=== PATIENT | female | born 1975 | race Caucasian/White ===

== ENCOUNTER 2016-10-07 08:36 | Day surgery (SDC) | payer MEDICARE ==
[~2016-10-07] VITALS: Ht 171.4 cm; Wt 73.0 kg
[2016-10-07] VITALS (8 sets, daily range): BP systolic 101–137; BP diastolic 51–86; PULSE 63–85; RESP 20; TEMP 97.7–98.1; O2SAT 96–98
[~2016-10-07 08:36] MED LIST: FLAG500T PO; HYDR-3129 PO; OMEP20TA39 PO
[2016-10-07] MEDS ORDERED: NEXI20CA PO (08:52)
[2016-10-07] MEDS ORDERED: SODIUM CHLOR 0.9% 1000 ML IV SCH (09:30)
[2016-10-07] MEDS ORDERED: LIDOCAINE 1%/EPINEPHrine 1:100,000 SOLN 20 ML VIAL ONE (12:50)
[2016-10-07] MEDS ORDERED: MIDAZOLAM HCL 5 MG/5 ML VIAL ONE (13:07)
[2016-10-07] MEDS ORDERED: fentaNYL CITRATE 250 MCG/5 ML AMP ONE (13:08)
[2016-10-07] MEDS ORDERED: HYDROmorphone HCL 2 MG TAB PO PRN (15:00)
--- NOTE | 2016-10-08 10:22 | RADRPT ---
EXAM DATE/TIME: 10/07/2016 13:17 [facility] COMPARISON: No previous studies available for comparison. INDICATIONS : Elevated liver function tests. SEDATION TIME: 30 minutes BIOPSY SITE: liver MEDICATION(S): 1.) 3 mg midazolam (Versed) IV 2.) 150 mcg fentanyl (Sublimaze) CLOTHING SUPERVISOR(s): Tuyet Iniguez RN DEVICE(S): 1.) 18 gauge BioPince needle MEDICAL HISTORY : pelvic ulcer disease, crohn's disease SURGICAL HISTORY : None. ENCOUNTER: Initial ACUITY: 1 day PAIN SCORE: 0/10 LOCATION: Right abdomen A total of one core specimen(s) were obtained and sent to the laboratory for pathologic evaluation. PROCEDURE: 1. CT guided liver biopsy. 2. Conscious sedation with continuous EKG and oximetry monitoring. 3. EKG and oximetry remained stable throughout the procedure. Prior to the procedure informed consent was obtained. Any appropriate prior imaging studies were rev iewed. The site was prepped in a sterile fashion. Full sterile technique was used, including cap, mask, deborah rile gloves and gown and a large sterile sheet. Hand hygiene and 2% chlorhexidine and/or betadine/al cohol prep was utilized per protocol for cutaneous antisepsis. The skin and subcutaneous tissues wer e infiltrated with local anesthetic solution. With CT guidance the previously identified target was localized. Biopsy was performed using the presc ribed needle as above. Adequate hemostasis was obtained with compression at the puncture site. Follow-up CT scan reveals no hemorrhage. The patient tolerated the procedure well and there were no complications. The patient was returned to the Radiology Outpatient Unit in stable condition. CONCLUSION: Uncomplicated CT guided biopsy. Elbert Brito MD FACR on October 08, 2016 at 10:20 Board Certified Radiologist. This report was verified electronically.
== END 2016-10-07 17:11 | disposition home or self-care (01) ==
LOC: HRAD 08:36 → HRIP 08:39 → EDSTATUS 09:00 → HRAD 17:11
PROVIDERS: ATTEND Internal Medicine Gastroenterology
DX: K52.9 Noninfective gastroenteritis and colitis, unspecified (principal); K27.9 Peptic ulcer, site unspecified, unspecified as acute or chronic, without hemorrhage or perforation; K50.818 Crohn's disease of both small and large intestine with other complication; R10.13 Epigastric pain; R19.5 Other fecal abnormalities
CPT/HCPCS: 47000; 77012; 88307; 88313; 88331; J2250; J3010; J7030

== ENCOUNTER → 2016-10-11 | Outpatient (CLI) | payer MEDICARE ==
[~2016-10-11] MED LIST changes: +CARA1TAB6 PO; -FLAG500T PO; -HYDR-3129 PO; +NEXI20CA PO; -OMEP20TA39 PO; +PROT40TA PO
--- NOTE | 2016-10-11 13:40 | RADRPT ---
EXAM DATE/TIME: 10/11/2016 12:40 [facility] COMPARISON: No previous studies available for comparison. INDICATIONS : Abdominal pain following liver biopsy four days ago. ORAL CONTRAST: No oral contrast ingested. RADIATION DOSE: 9.96 CTDIvol (mGy) MEDICAL HISTORY : Crohn's disease. Ulcers. SURGICAL HISTORY : Pacemaker. Hysterectomy.Colectomy. ENCOUNTER: Initial ACUITY: 4 - 6 days PAIN SCALE: 4/10 LOCATION: Right upper quadrant TECHNIQUE: Volumetric scanning of the abdomen was performed. Using automated exposure control and adjustment of the mA and/or kV according to patient size, radiation dose was kept as low as reasonably achievable to obtain optimal diagnostic quality images. FINDINGS: No evidence of free air or free fluid. LOWER LUNGS: The visualized lower lungs are clear. LIVER: Homogeneous density without lesion. There is no dilation of the biliary tree. No evidence of hemato ma. No calcified gallstones. SPLEEN: Normal size without lesion. PANCREAS: Within normal limits. KIDNEYS: Normal in size and shape. There is no mass, stone, or hydronephrosis. ADRENAL GLANDS: Within normal limits. AORTA/RETROPERITONEAL: There is no aneurysm or lymphadenopathy. BOWEL/MESENTERY: The stomach and visualized small and large bowel demonstrate no abnormality. MUSCULOSKELETAL: Within normal limits for patient age. CONCLUSION: Normal examination. Ekta Madden MD on October 11, 2016 at 13:37 Board Certified Radiologist. This report was verified electronically.
== END ==
LOC: HRAD 12:19
PROVIDERS: ATTEND Radiology Body Imaging
DX: R10.9 Unspecified abdominal pain (principal); Z98.890 Other specified postprocedural states
CPT/HCPCS: 74150

== ENCOUNTER 2016-12-18 13:37 | Emergency (ER) | payer MEDICARE ==
[~2016-12-18] VITALS: Ht 170.2 cm; Wt 73.8 kg
[~2016-12-18 13:37] MED LIST changes: -CARA1TAB6 PO; -PROT40TA PO
[2016-12-18 13:43] VITALS: BP 102/63; PULSE 100; RESP 16; TEMP 98.1; O2SAT 98
[2016-12-18 13:55] VITALS: BP 105/62; PULSE 105; RESP 18; O2SAT 96
[2016-12-18] MEDS ORDERED: SODIUM CHLOR 0.9% 1000 ML INJ 1,000 ML IV SCH ×2 (14:15)
[2016-12-18] MEDS ORDERED: ONDANSETRON HCL 4 MG/2 ML VIAL IV ONE (14:15)
[2016-12-18] MEDS ORDERED: HYDROmorphone HCL PF 1 MG/ML VIAL IV PUSH ONE ×2 (14:15→15:15)
--- NOTE | 2016-12-18 14:26 | PD ---
HPI Chief Complaint: Abdominal Pain Time Seen by Provider: 13:48 Travel History International Travel<30 days: No Contact w/Intl Traveler<30days: No Traveled to known affect area: No History of Present Illness HPI Is a 41-year-old woman with a history of Crohn's disease, status post multiple surgeries including total colectomy, and at least 3 feet of small bowel resected with ileostomy in 1998, here with epigastric pain, weakness, dehydration, and increased watery output from her ostomy. States feels similar to when she had pancreatitis in the past. She reports having pancreatitis 5 times in the past, most recently in May of last year with abdominal pain and weakness found to have ileitis and mild pancreatitis. She's done well since that time and states she felt completely well until yesterday when the symptoms began to develop. She's had nausea but no vomiting. She has hot flashes from her hysterectomy but hasn't really noticed any change or fevers or chills. No dysuria although she says she is urinating less. History Past Medical History Narrative Medical Crohn's disease with multiple abdominal surgeries including total colectomy, and small bowel resection of at least 3 feet of small bowel, with right lower quadrant ileostomy in , follows with Dr. Harris Influenza Vaccination: No Social History Alcohol Use: No Tobacco Use: Yes Allergies-Medications (Allergen,Severity, Reaction): Coded Allergies: Morphine (Verified Allergy, Severe, Chest pain, 12/18/16) Ciprofloxacin (Verified Allergy, Intermediate, Nausea/Vomiting, 12/18/16) Macrobid (Verified Allergy, Intermediate, Nausea/Vomiting, 12/18/16) Sulfa (Verified Allergy, Intermediate, Nausea/Vomiting, 12/18/16) Adhesives (Verified Allergy, Mild, 12/18/16) Paper Tape Penicillin (Verified Allergy, Mild, Hives, 12/18/16) Reported Meds & Prescriptions Reported Meds & Active Scripts Active Reported Nexium (Esomeprazole DR) 20 Mg Capdr 20 Mg PO BID Review of Systems Except as stated in HPI: all other systems reviewed are Neg Physical Exam Narrative GENERAL: Thin 41 year-old woman, no acute distress. SKIN: Warm and dry. CARDIOVASCULAR: Regular rate and rhythm. No murmur appreciated. RESPIRATORY: No accessory muscle use. Clear to auscultation. Breath sounds equal bilaterally. GASTROINTESTINAL: Abdomen flat and soft. Extensive midline scarring. There is a right lower quadrant ostomy productive of thin yellow liquid. She is minimal epigastric tenderness. No distention. No guarding. MUSCULOSKELETAL: No obvious deformities. No clubbing. No cyanosis. No edema. NEUROLOGICAL: Awake and alert. No obvious cranial nerve deficits. Motor grossly within normal limits. Normal speech. PSYCHIATRIC: Appropriate mood and affect; insight and judgment normal. Data Data Last Documented VS Vital Signs Date Time Temp Pulse Resp B/P Pulse Ox O2 Delivery O2 Flow Rate FiO2 12/18/16 15:09 72 18 102/62 99 Room Air 12/18/16 13:43 98.1 Orders Iv Access Insert/Monitor (12/18/16 14:03) Complete Blood Count With Diff (12/18/16 14:03) Comprehensive Metabolic Panel (12/18/16 14:03) Lipase (12/18/16 14:03) Urinalysis - C+S If Indicated (12/18/16 14:03) Sodium Chlor 0.9% 1000 Ml Inj (Ns 1000 M (12/18/16 14:15) Sodium Chlor 0.9% 1000 Ml Inj (Ns 1000 M (12/18/16 14:15) Ondansetron Inj (Zofran Inj) (12/18/16 14:15) Hydromorphone Pf Inj (Dilaudid Pf Inj) (12/18/16 14:15) Urine Culture (12/18/16 14:15) Hydromorphone Pf Inj (Dilaudid Pf Inj) (12/18/16 15:15) Labs Laboratory Tests Test 12/18/16 12/18/16 14:15 14:20 Urine Collection Type CLEAN CATCH Urine Color YELLOW Urine Turbidity SLIGHT Urine pH 5.5 Urine Specific [place] 1.032 Urine Protein TRACE mg/dL Urine Glucose (UA) NEG mg/dL Urine Ketones NEG mg/dL Urine Occult Blood NEG Urine Nitrite NEG Urine Bilirubin NEG Urine Leukocyte Esterase NEG Urine WBC 3-5 /hpf Urine Squamous Epithelial 0-5 /hpf Cells Urine Bacteria MANY /hpf Microscopic Urinalysis Comment CULTURE INDICATED Urine Collection Time 1415 White Blood Count 7.8 TH/MM3 Red Blood Count 4.39 MIL/MM3 Hemoglobin 12.7 GM/DL Hematocrit 38.6 % Mean Corpuscular Volume 87.9 FL Mean Corpuscular Hemoglobin 29.0 PG Mean Corpuscular Hemoglobin 33.0 % Concent Red Cell Distribution Width 14.0 % Platelet Count 336 TH/MM3 Mean Platelet Volume 8.4 FL Neutrophils (%) (Auto) 65.8 % Lymphocytes (%) (Auto) 28.2 % Monocytes (%) (Auto) 3.7 % Eosinophils (%) (Auto) 1.7 % Basophils (%) (Auto) 0.6 % Neutrophils # (Auto) 5.2 TH/MM3 Lymphocytes # (Auto) 2.2 TH/MM3 Monocytes # (Auto) 0.3 TH/MM3 Eosinophils # (Auto) 0.1 TH/MM3 Basophils # (Auto) 0.0 TH/MM3 CBC Comment DIFF FINAL Differential Comment Sodium Level 143 MEQ/L Potassium Level 3.8 MEQ/L Chloride Level 110 MEQ/L Carbon Dioxide Level 25.6 MEQ/L Anion Gap 7 MEQ/L Blood Urea Nitrogen 20 MG/DL Creatinine 0.92 MG/DL Estimat Glomerular Filtration 68 ML/MIN Rate Random Glucose 131 MG/DL Calcium Level 9.0 MG/DL Total Bilirubin 0.3 MG/DL Aspartate Amino Transf 19 U/L (AST/SGOT) Alanine Aminotransferase 26 U/L (ALT/SGPT) Alkaline Phosphatase 115 U/L Total Protein 7.6 GM/DL Albumin 3.9 GM/DL Lipase 252 U/L MDM Medical Decision Making Medical Screen Exam Complete: Yes Emergency Medical Condition: Yes Interpretation(s) LABS: CBC unremarkable CMP with mildly elevated BUN consistent with dehydration UA unremarkable Differential Diagnosis Enteritis, pancreatitis, Crohn's flare, dehydration, high output ostomy, other Narrative Course Medical decision making INITIAL: Is a 41-year-old woman presents to the emergency department with epigastric abdominal pain, tenderness, and increased liquid output from her ostomy. Suspect enteritis or Crohn's flare. We'll check labs, IV fluid hydration, antiemetics, reassess. FINAL: 41 year-old woman with abdominal pain and increased liquid output from her ostomy consistent with enteritis or Crohn's flare. She looks well. She still feels very dehydrated she's having a lot of pain despite IV medications and 2 L of fluid in the ED. I spoke her GI doctor and initially was given a plan for outpatient follow-up. She really isn't feeling much better in the ED and so we'll plan for observation overnight, IV fluids, pain medicine, antibiotics. Diagnosis Primary Impression: Abdominal pain Admitting Information Admitting Physician Requests: Observation Danish Butler MD Dec 18, 2016 14:26
[2016-12-18 14:42] LABS: BLOOD, URINE NEG (NEG); GLUCOSE,URINE NEG (NEG); KETONE, URINE NEG (NEG); NITRITE,URINE NEG (NEG); PH, URINE 5.5 (5.0-8.5)
[2016-12-18 14:45] LABS: AUTOMATED NEUTROPHIL # 5.2 TH/MM3 (1.8-7.7); BASOPHIL % 0.6 % (0.0-2.0); EOSINOPHIL # 0.1 TH/MM3 (0-0.4); EOSINOPHIL % 1.7 % (0.0-4.0); HEMATOCRIT 38.6 % (35.0-46.0); HEMO FLAGS DIFF FINAL; LYMPH % 28.2 % (9.0-44.0); LYMPHOCYTE # 2.2 TH/MM3 (1.0-4.8); MEAN CELL VOLUME 87.9 FL (80.0-100.0); MONO % 3.7 % (0.0-8.0); NEUT % 65.8 % (16.0-70.0); PLATELET COUNT 336 TH/MM3 (150-450); RED BLOOD COUNT 4.39 MIL/MM3 (4.00-5.30); WHITE BLOOD COUNT 7.8 TH/MM3 (4.0-11.0)
[2016-12-18 14:46] LABS: METHOD OF COLLECTION CLEAN CATCH; URINE COLOR YELLOW (YELLW/STRAW)
[2016-12-18 14:47] LABS: BACTERIA, URINE MANY /hpf; COMMENT (UR) CULTURE INDICATED; CULTURE IF INDICATED CULTURE INDICATED; SQUAMOUS EPITHELIAL CELL URINE 0-5 /hpf (0-5)
[2016-12-18 14:57] LABS: CHLORIDE 110 MEQ/L (98-107); POTASSIUM 3.8 MEQ/L (3.5-5.1); SODIUM (NA) 143 MEQ/L (136-145)
[2016-12-18 15:01] LABS: ANION GAP 7 MEQ/L (5-15); BICARBONATE 25.6 MEQ/L (21.0-32.0); BLOOD UREA NITROGEN 20 MG/DL (7-18)
[2016-12-18 15:04] LABS: ALT (GPT) 26 U/L (10-53); AST (GOT) 19 U/L (15-37); GLOMERULAR FILTRATION RATE 68 ML/MIN (>89)
[2016-12-18 15:06] LABS: TOTAL BILIRUBIN ADULT 0.3 MG/DL (0.2-1.0)
[2016-12-18 15:07] LABS: ALKALINE PHOSPHATASE 115 U/L (45-117)
[2016-12-18 15:09] VITALS: BP 102/62; PULSE 72; RESP 18; O2SAT 99
[2016-12-18 15:30] VITALS: BP 85/52; PULSE 64; RESP 18; O2SAT 95
[2016-12-18 15:45] VITALS: BP 97/65; PULSE 72; RESP 18; O2SAT 99
--- NOTE | 2016-12-18 17:33 | HHI.HP ---
[facility] Service [facility] Primary Care Physician Tae Harris MD Admission Diagnosis intractable abdominal pain, nausea vomiting Diagnoses: Chief Complaint: Epigastric pain, weakness and dehydration Travel History International Travel<30 Days: No Contact w/Intl Traveler <30 Da: No Traveled to Known Affected Are: No History of Present Illness 41 years old woman with history of Crohn's disease status post multiple surgery and total colectomy 3 feet of small bowel resected with ileostomy in 1998. Came complaining of epigastric pain weakness and"dehydration"patient has watery stool in the ostomy which she is chronic. She denied a history of pancreatitis in the past however her liver function test bilirubin and alkaline phosphatase is within normal limits today. She she was found to have BUN of 20 she was given 2 L of iv fluid in ED, I discussed with Dr. Danish alva, he recommended admission for observation. When I went to see the patient she looked already improved with hydration, I discussed with her and she agreed on discharge and follow up with Dr. White in his office Review of Systems All 10 systems reviewed and was positive for what is mentioned in history of present illness otherwise negative Past Family Social History Past Medical History Crohn's disease with multiple abdominal surgeries including total colectomy, and small bowel resection of at least 3 feet of small bowel, with right lower quadrant ileostomy in ', follows with Dr. Harris Past Surgical History As above Allergies: Coded Allergies: Morphine (Verified Allergy, Severe, Chest pain, 12/18/16) Ciprofloxacin (Verified Allergy, Intermediate, Nausea/Vomiting, 12/18/16) Macrobid (Verified Allergy, Intermediate, Nausea/Vomiting, 12/18/16) Sulfa (Verified Allergy, Intermediate, Nausea/Vomiting, 12/18/16) Adhesives (Verified Allergy, Mild, 12/18/16) Paper Tape Penicillin (Verified Allergy, Mild, Hives, 12/18/16) Family History Reviewed noncontributory Social History Denied tobacco alcohol or illicit drug abuse Physical Exam Vital Signs Vital Signs Date Time Temp Pulse Resp B/P Pulse Ox O2 Delivery O2 Flow Rate FiO2 12/18/16 15:45 72 18 97/65 99 Room Air 12/18/16 15:30 64 18 85/52 95 Room Air 12/18/16 15:09 72 18 102/62 99 Room Air 12/18/16 13:55 105 18 105/62 96 Room Air 12/18/16 13:43 98.1 100 16 102/63 98 Physical Exam GENERAL: This is a well-nourished, well-developed patient, in no apparent distress. SKIN: No rashes, warm and dry HEAD: Atraumatic. Normocephalic. EYES: Pupils equal round and reactive. Extraocular motions intact. No scleral icterus. ENT: Nose without bleeding, or drainage, Airway patent. NECK: Trachea midline. Supple CARDIOVASCULAR: Regular rate and rhythm without murmurs, gallops, or rubs. RESPIRATORY: Fair air entry bilaterally. No wheezes, rales, or rhonchi. GASTROINTESTINAL: Abdomen soft, non-tender, nondistended. Positive bowel sounds , colostomy in place function MUSCULOSKELETAL: Extremities without clubbing, cyanosis, or edema. Pedal pulses appreciated NEUROLOGICAL: Awake and alert. Moves all extremity. Normal speech.no focal neurological deficit Laboratory Laboratory Tests Test 12/18/16 12/18/16 14:15 14:20 Urine Collection Type CLEAN CATCH Urine Color YELLOW Urine Turbidity SLIGHT Urine pH 5.5 Urine Specific [place] 1.032 Urine Protein TRACE Urine Glucose (UA) NEG Urine Ketones NEG Urine Occult Blood NEG Urine Nitrite NEG Urine Bilirubin NEG Urine Leukocyte Esterase NEG Urine WBC 3-5 Urine Squamous Epithelial 0-5 Cells Urine Bacteria MANY Microscopic Urinalysis Comment CULTURE INDICATED Urine Collection Time 1415 White Blood Count 7.8 Red Blood Count 4.39 Hemoglobin 12.7 Hematocrit 38.6 Mean Corpuscular Volume 87.9 Mean Corpuscular Hemoglobin 29.0 Mean Corpuscular Hemoglobin 33.0 Concent Red Cell Distribution Width 14.0 Platelet Count 336 Mean Platelet Volume 8.4 Neutrophils (%) (Auto) 65.8 Lymphocytes (%) (Auto) 28.2 Monocytes (%) (Auto) 3.7 Eosinophils (%) (Auto) 1.7 Basophils (%) (Auto) 0.6 Neutrophils # (Auto) 5.2 Lymphocytes # (Auto) 2.2 Monocytes # (Auto) 0.3 Eosinophils # (Auto) 0.1 Basophils # (Auto) 0.0 CBC Comment DIFF FINAL Differential Comment Sodium Level 143 Potassium Level 3.8 Chloride Level 110 Carbon Dioxide Level 25.6 Anion Gap 7 Blood Urea Nitrogen 20 Creatinine 0.92 Estimat Glomerular Filtration 68 Rate Random Glucose 131 Calcium Level 9.0 Total Bilirubin 0.3 Aspartate Amino Transf 19 (AST/SGOT) Alanine Aminotransferase 26 (ALT/SGPT) Alkaline Phosphatase 115 Total Protein 7.6 Albumin 3.9 Lipase 252 Date/Time Procedure Status Source Growth 12/18/16 14:15 Urine Culture Received Urine Clean Catch Pending Result Diagram: 12/18/16 1420 12/18/16 1420 Assessment and Plan Assessment and Plan 41 years old female with history of Crohn's disease status post colectomy and 3 feet small bowel resection came with weakness epigastric pain and mild azotemia with BUN of 20, GI Dr. White, has been consulted from ED recommended following up as an out patient, the patient stated she hasn't been on any sulfasalazine or other medication for Crohn's and she was okay, she stated her symptoms basically chronic, she was given 2 L of fluid in ED she already improved, I think she will be stable to go home and follow up with her GI considering her liver function test bilirubin and alkaline phosphatase potassium all within normal limits Discussed Condition With Patient in ED physician Nasir Jimenez MD Dec 18, 2016 17:32
[2016-12-18 18:12] VITALS: BP 97/52; PULSE 63; RESP 18; O2SAT 99
== END 2016-12-18 18:44 | disposition home or self-care (01) ==
LOC: PHED 13:37 → PHEDA 15:53 → UNDOADMIN 15:53 → UNDODISIN 18:44 → PHED 18:44
DX: R10.13 Epigastric pain (principal); R53.1 Weakness; E86.0 Dehydration; K50.90 Crohn's disease, unspecified, without complications; Z72.0 Tobacco use
CPT/HCPCS: 80053; 81001; 83690; 85025; 87086; 96361; 96374; 96375; 96376; 99284; J1170; J2405; J7030

== ENCOUNTER 2016-12-18 21:29 | Emergency (ER) | payer MEDICARE ==
[~2016-12-18] VITALS: Ht 170.2 cm; Wt 76.1 kg
[2016-12-18 22:11] VITALS: BP 111/68; PULSE 68; RESP 18; TEMP 98.5; O2SAT 99
== END 2016-12-19 00:24 | disposition left against medical advice (07) ==
LOC: PHED 21:29
DX: R10.9 Unspecified abdominal pain (principal)
CPT/HCPCS: 99281

== ENCOUNTER 2017-02-06 00:07 | Observation (INO) | payer MEDICARE ==
[~2017-02-06] VITALS: Ht 170.2 cm; Wt 78.8 kg
[2017-02-06] VITALS (11 sets, daily range): BP systolic 94–125; BP diastolic 59–81; PULSE 19–107; RESP 18–20; TEMP 96–98; O2SAT 94–98
--- NOTE | 2017-02-06 01:37 | PD ---
HPI Chief Complaint: GI Complaint Time Seen by Provider: 01:33 Travel History International Travel<30 days: No Contact w/Intl Traveler<30days: No Traveled to known affect area: No History of Present Illness HPI The patient is a 41-year-old female that has a history of Crohn's disease and ulcers who noted black stools since about 5 PM tonight. She also has midline epigastric pain. Sometimes the pain goes back to the right back. She does have a history of ulcer disease as well. She is followed by Dr. Harris for this. She denies any alcohol, aspirin or nonsteroidal anti-inflammatory medications. She does have nausea without vomiting. She denies any fever. She denies any syncopal or near syncopal spells. The patient has missed 2 days (4 doses) of her 20 mg Nexium tablets. She simply did not buy them at the store. She states she has a large bladder and, because her bladder does not empty completely, it is difficult to treat urinary tract infections because there is always some retained urine in the bladder. She does not want urinary antibiotics. PFSH Past Medical History Hx Anticoagulant Therapy: No Blood Disorders: No Cancer: No Cardiovascular Problems: No High Cholesterol: No Diabetes: No Diminished Hearing: No Endocrine: No Gastrointestinal Disorders: Yes (CROHN'S DISEASE) Genitourinary: No Hiatal Hernia: Yes (GASTRIC ULCER) Immune Disorder: No Musculoskeletal: No Neurologic: No Psychiatric: No Reproductive: Yes (full hysterectomy) Respiratory: No Immunizations Current: No Pancreatitis: Yes Thyroid Disease: No Tetanus Vaccination: > 5 Years Influenza Vaccination: No ?: Not : 0 Past Surgical History Abdominal Surgery: Yes (COLECTOMY, ONLY 3 FT SMALL INTESTINE REMAINING) AICD: No Eye Surgery: No Hysterectomy: Yes Joint Replacement: No Oral Surgery: No Pacemaker: Yes Other Surgery: Yes (31) Social History Alcohol Use: No (1X week) Tobacco Use: Yes (09/30 PPD) Substance Use: No Allergies-Medications (Allergen,Severity, Reaction): Coded Allergies: Flagyl (Verified Allergy, Severe, Vomiting, 02/06/17) Morphine (Verified Allergy, Severe, Chest pain, 02/06/17) Ciprofloxacin (Verified Allergy, Intermediate, Nausea/Vomiting, 02/06/17) Macrobid (Verified Allergy, Intermediate, Nausea/Vomiting, 02/06/17) Sulfa (Verified Allergy, Intermediate, Nausea/Vomiting, 02/06/17) Adhesives (Verified Allergy, Mild, 02/06/17) Paper Tape Penicillin (Verified Allergy, Mild, Hives, 02/06/17) Reported Meds & Prescriptions Reported Meds & Active Scripts Active Reported Nexium (Esomeprazole DR) 20 Mg Capdr 20 Mg PO BID Review of Systems Except as stated in HPI: all other systems reviewed are Neg Physical Exam Narrative GENERAL: The patient is alert, oriented 3 and slight apparent distress with her midline epigastric pain. Her vital signs show heart rate of 107 but are otherwise normal. SKIN: Focused skin assessment warm/dry. HEAD: Atraumatic. Normocephalic. EYES: Pupils equal and round. No scleral icterus. No injection or drainage. ENT: No nasal bleeding or discharge. Mucous membranes pink and moist. NECK: Trachea midline. No JVD. CARDIOVASCULAR: Regular rate and rhythm. No murmur appreciated. RESPIRATORY: No accessory muscle use. Clear to auscultation. Breath sounds equal bilaterally. GASTROINTESTINAL: Abdomen soft, with tenderness to direct palpation in the midline epigastrium, nondistended. Hepatic and splenic margins not palpable. No guarding or rebound is present. MUSCULOSKELETAL: No obvious deformities. No clubbing. No cyanosis. No edema. NEUROLOGICAL: Awake and alert. No obvious cranial nerve deficits. Motor grossly within normal limits. Normal speech. PSYCHIATRIC: Appropriate mood and affect; insight and judgment normal. Data Data Last Documented VS Vital Signs Date Time Temp Pulse Resp B/P Pulse Ox O2 Delivery O2 Flow Rate FiO2 02/06/17 02:20 87 18 112/81 98 Room Air 02/06/17 00:11 97.9 Orders Complete Blood Count With Diff (02/06/17 01:39) Comprehensive Metabolic Panel (02/06/17 01:39) Prothrombin Time / Inr (Pt) (02/06/17 01:39) Act Partial Throm Time (Ptt) (02/06/17 01:39) Urinalysis - C+S If Indicated (02/06/17 01:39) Iv Access Insert/Monitor (02/06/17 01:39) Ecg Monitoring (02/06/17 01:39) Oximetry (02/06/17 01:39) Sodium Chlor 0.9% 1000 Ml Inj (Ns 1000 M (02/06/17 01:39) Sodium Chloride 0.9% Flush (Ns Flush) (02/06/17 01:45) Ondansetron Inj (Zofran Inj) (02/06/17 01:45) Pantoprazole Inj (Protonix Inj) (02/06/17 01:45) Famotidine Inj (Pepcid Inj) (02/06/17 01:45) Urine Culture (02/06/17 01:20) Labs Laboratory Tests Test 02/06/17 01:20 White Blood Count 17.2 TH/MM3 Red Blood Count 4.15 MIL/MM3 Hemoglobin 12.0 GM/DL Hematocrit 35.6 % Mean Corpuscular Volume 86.0 FL Mean Corpuscular Hemoglobin 28.9 PG Mean Corpuscular Hemoglobin 33.7 % Concent Red Cell Distribution Width 14.4 % Platelet Count 324 TH/MM3 Mean Platelet Volume 8.5 FL Neutrophils (%) (Auto) 73.3 % Lymphocytes (%) (Auto) 18.6 % Monocytes (%) (Auto) 5.5 % Eosinophils (%) (Auto) 1.0 % Basophils (%) (Auto) 1.6 % Neutrophils # (Auto) 12.6 TH/MM3 Lymphocytes # (Auto) 3.2 TH/MM3 Monocytes # (Auto) 0.9 TH/MM3 Eosinophils # (Auto) 0.2 TH/MM3 Basophils # (Auto) 0.3 TH/MM3 CBC Comment AUTO DIFF Differential Comment AUTO DIFF CONFIRMED Platelet Estimate NORMAL Platelet Morphology Comment NORMAL Red Cell Morphology Comment NORMAL Prothrombin Time 10.1 SEC Prothromb Time International 0.9 RATIO Ratio Activated Partial 23.9 SEC Thromboplast Time Urine Color YELLOW Urine Turbidity SLIGHT Urine pH 5.0 Urine Specific [place] GREATER THAN 1.035 Urine Protein 30 mg/dL Urine Glucose (UA) NEG mg/dL Urine Ketones TRACE mg/dL Urine Occult Blood NEG Urine Nitrite NEG Urine Bilirubin NEG Urine Leukocyte Esterase NEG Urine RBC 0-2 /hpf Urine WBC 0-2 /hpf Urine Squamous Epithelial 0-5 /hpf Cells Urine Bacteria MANY /hpf Microscopic Urinalysis Comment CULTURE INDICATED Sodium Level 141 MEQ/L Potassium Level 3.6 MEQ/L Chloride Level 105 MEQ/L Carbon Dioxide Level 26.9 MEQ/L Anion Gap 9 MEQ/L Blood Urea Nitrogen 23 MG/DL Creatinine 1.30 MG/DL Estimat Glomerular Filtration 45 ML/MIN Rate Random Glucose 95 MG/DL Calcium Level 9.2 MG/DL Total Bilirubin 0.1 MG/DL Aspartate Amino Transf 36 U/L (AST/SGOT) Alanine Aminotransferase 40 U/L (ALT/SGPT) Alkaline Phosphatase 129 U/L Total Protein 7.7 GM/DL Albumin 3.7 GM/DL [facility] Medical Decision Making Medical Screen Exam Complete: Yes Emergency Medical Condition: Yes Medical Record Reviewed: Yes Interpretation(s) The white count is 17,200. There are 73% neutrophils but the rest of the CBC is normal. The complete metabolic profile shows a creatinine of 1.3, BUN of 23 and alkaline phosphatase of 129 but is otherwise normal. Urinalysis shows many bacteria and culture is indicated and 30 urine protein and specific gravity greater than 1.035. Differential Diagnosis Bleeding ulcers, GERD, anemia, electrolyte disorder, coagulopathy, noncompliance to medication, dehydration Narrative Course The patient likely has bleeding ulcers. It is now 0249 and the patient still is putting out black stool into her ileostomy bag. The patient may be dehydrated, she has a urine specific gravity of greater than 1.035. She likely does have a urinary infection even though the white cells in the urine are only 0-2. The patient does not feel comfortable going home with black stool coming into her ileostomy bag. The hemoglobin of 12.0 is the lowest hemoglobin we have had on her since May 2016 when we began collecting records on her. Physician Communication Physician Communication I discussed the patient with Dr. Malhotra, the patient will be 23 hour observation to her. Diagnosis Primary Impression: Upper GI bleed Additional Impressions: History of Crohn's disease Moderate dehydration Hx of ulcer disease Admitting Information Admitting Physician Requests: Observation Amando Nolasco MD February 06, 2017 01:37
[2017-02-06] MEDS ORDERED: SODIUM CHLOR 0.9% 1000 ML INJ 1,000 ML IV SCH ×2 (01:39→03:15)
[2017-02-06] MEDS ORDERED: SODIUM CHLORIDE 0.9% FLUSH 10 ML FLUSH IV FLUSH PRN ×2 (01:45→03:00)
[2017-02-06] MEDS ORDERED: ONDANSETRON HCL 4 MG/2 ML VIAL IVP ONE (01:45)
[2017-02-06] MEDS ORDERED: PANTOPRAZOLE SODIUM 40 MG VIAL IVP ONE (01:45)
[2017-02-06] MEDS ORDERED: FAMOTIDINE 20 MG/2 ML VIAL IV PUSH ONE (01:45)
[2017-02-06 01:53] LABS: AUTOMATED NEUTROPHIL # 12.6 TH/MM3 (1.8-7.7); BASOPHIL # 0.3 TH/MM3 (0-0.2); BASOPHIL % 1.6 % (0.0-2.0); EOSINOPHIL # 0.2 TH/MM3 (0-0.4); HEMATOCRIT 35.6 % (35.0-46.0); LYMPH % 18.6 % (9.0-44.0); LYMPHOCYTE # 3.2 TH/MM3 (1.0-4.8); MEAN CORPUSCULAR HEMOGLOBIN 28.9 PG (27.0-34.0); MEAN CORPUSCULAR HGB CONC 33.7 % (32.0-36.0); MONO % 5.5 % (0.0-8.0); NEUT % 73.3 % (16.0-70.0); PLATELET COUNT 324 TH/MM3 (150-450); RED BLOOD COUNT 4.15 MIL/MM3 (4.00-5.30); RED CELL DISTRIBUTION WIDTH 14.4 % (11.6-17.2); WHITE BLOOD COUNT 17.2 TH/MM3 (4.0-11.0)
[2017-02-06 01:54] LABS: BLOOD, URINE NEG (NEG); GLUCOSE,URINE NEG (NEG); KETONE, URINE TRACE mg/dL (NEG); NITRITE,URINE NEG (NEG)
[2017-02-06 01:58] LABS: HEMO FLAGS AUTO DIFF
[2017-02-06 01:59] LABS: CHLORIDE 105 MEQ/L (98-107); POTASSIUM 3.6 MEQ/L (3.5-5.1); SODIUM (NA) 141 MEQ/L (136-145)
[2017-02-06 02:03] LABS: ANION GAP 9 MEQ/L (5-15); BACTERIA, URINE MANY /hpf; BICARBONATE 26.9 MEQ/L (21.0-32.0); BLOOD UREA NITROGEN 23 MG/DL (7-18); COMMENT (UR) CULTURE INDICATED; CULTURE IF INDICATED CULTURE INDICATED; RBC, URINE 0-2 /hpf (0-3); SQUAMOUS EPITHELIAL CELL URINE 0-5 /hpf (0-5); URINE COLOR YELLOW (YELLW/STRAW); WBC, URINE 0-2 /hpf (0-5)
[2017-02-06 02:05] LABS: APTT (PATIENT) 23.9 SEC (24.3-30.1); INTERNATIONAL NORMALIZED RATIO 0.9 RATIO; PROTHROMBIN TIME - PATIENT 10.1 SEC (9.8-11.6)
[2017-02-06 02:06] LABS: ALT (GPT) 40 U/L (10-53); AST (GOT) 36 U/L (15-37); GLOMERULAR FILTRATION RATE 45 ML/MIN (>89)
[2017-02-06 02:07] LABS: TOTAL BILIRUBIN ADULT 0.1 MG/DL (0.2-1.0)
[2017-02-06 02:09] LABS: ALKALINE PHOSPHATASE 129 U/L (45-117)
[2017-02-06 02:11] LABS: PLATELET ESTIMATE SMEAR NORMAL (NORMAL); PLATELET MORPHOLOGY NORMAL (NORMAL); SCAN/DIFF AUTO DIFF CONFIRMED
[2017-02-06] MEDS ORDERED: NALOXONE HCL 0.4 MG/ML AMP IV PRN (03:00)
[2017-02-06] MEDS ORDERED: ONDANSETRON HCL 4 MG/2 ML VIAL IV ONE (03:15)
[2017-02-06] MEDS ORDERED: HYDROmorphone HCL PF 1 MG/ML VIAL IVP ONE (03:15)
[2017-02-06 03:22] LABS: HEMATOCRIT 33.6 % (35.0-46.0); REVIEW FLAG FINAL
[2017-02-06] MEDS: SODIUM CHLOR 0.9% 1000 ML INJ 1,000 ML IV SCH ×3 (03:48→21:38)
[2017-02-06] MEDS: HYDROmorphone HCL PF 1 MG/ML VIAL IV PUSH PRN ×5 (05:53→23:02)
[2017-02-06 07:47] LABS: HEMATOCRIT 32.2 % (35.0-46.0)
[2017-02-06 07:53] LABS: REVIEW FLAG FINAL
--- NOTE | 2017-02-06 08:17 | PD.CONS ---
GI Consult GI Consult See formal GI consult dictated today also ASSESSMENT/PLAN: 1. Melena/epigastic pain-hx of PUD 2. Anemia 3. Crohn's 4. PBC/abnormal LFT PLAN: 1. EGD today 2. Cont PPI 3.Avoid ASA/NSAIDS It was a pleasure seeing Zulma Shah Thank you for this consult. Entered by: Khurram Trujillo (Khurram Trujillo MD) Khurram Trujillo MD February 06, 2017 08:17 Nasir Jimenez MD February 06, 2017 11:04
--- NOTE | 2017-02-06 09:43 | HHI.GIFU ---
GI Follow-up Note Consult Follow-up EGD AND BIOPSY ([id number]) 1. Esoph: normal 2. Stomach: bile in stomach-suctioned. 1.0 cm non-bleeding linear ulcer in mid-body-bx 5mm prepyloric ulcer-bx (non-bleeding) 5 mm pyloric channel ulcer-bx (non-bleeding) antral scarring 3. Duodenum: bulb duodenitis PLAN: 1. Cont PPI 2. Add carafate 3. Avoid NSAIDS/ASA 4. Stop smoking 5. advance diet It was a pleasure seeing Zulma Shah Thank you for this consult. Entered by: Khurram Yanes MD February 06, 2017 09:43
[2017-02-06] MEDS ORDERED: FLUMAZENIL 0.5 MG/5 ML VIAL IV PRN ×2 (09:45)
[2017-02-06] MEDS ORDERED: LACTATED RINGER'S 1000 ML INJ 1,000 ML ONE (10:00)
--- NOTE | 2017-02-06 10:19 | MB ---
cc: LYLE LACY MD, LOUIS M. MD PASRICHA, SUNIL P. M.D. DATE OF CONSULTATION: 02/06/2017 DATE OF : 1975 REASON FOR CONSULTATION I was asked to see the patient at the request of Dr. Lacy for evaluation of melena. HISTORY OF PRESENT ILLNESS The patient is a pleasant 41-year-old white female with history of Crohn's and had her colon taken out and part of her small intestine. She has an ileostomy. She also has epigastric pain and in June 2016 she had upper endoscopy which revealed multiple gastric ulcers and a duodenal ulcer. Biopsies were benign. She also had ileoscopy through the stoma and this was unremarkable also. She was advised not to take aspirin or NSAIDs and continue taking a PPI. She has had difficulty staying on the PPI due to expense and she actually stopped her Nexium 20 mg 2 or 3 days ago. Three weeks ago she states was her last Excedrin dosage. She started to have increasing sharp epigastric pain and some nausea but no vomiting. She then developed black stools through the ileostomy in her bag. She came to the emergency room. Hemoglobin did drop but is now stabilized in the 10 range - see below. At this time she feels pretty good as far as nausea is concerned. There has been no dysphagia or heartburn. No hematochezia. No fever or chills. PAST MEDICAL HISTORY 1. Crohn's disease - it was quite extensive, she had a total colectomy, she had part of her small bowel removed. She says she also had her rectum removed. 2. She has had gastric ulcer and duodenal ulcer. 3. 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 PAST SURGICAL HISTORY 1. Colectomy. 2. Partial small bowel removed - she has ileostomy now. 3. Hysterectomy. SOCIAL HISTORY She does drink socially. She does smoke 1-2 packs of cigarettes per day. ALLERGIES FLAGYL, MORPHINE, CIPRO, MACROBID, SULFA, ADHESIVE TAPE, PENICILLIN. MEDICATIONS 1. Nexium 20 mg b.i.d. 2. She did admit to some Excedrin usage but that was a few weeks ago. She takes no IBD medications. She is supposed to be taking ursodiol but she is not taking it right now. REVIEW OF SYSTEMS CONSTITUTIONAL: No weight loss, fever, chills. CARDIOPULMONARY: No chest pain, palpitation, wheezes or shortness of breath. GASTROINTESTINAL: Please see above. Otherwise unremarkable ten-point review of systems. FAMILY HISTORY Noncontributory for this admission. PHYSICAL EXAMINATION VITAL SIGNS: Blood pressure is 106/70, pulse of 63, respiratory rate 20, temperature 97.6. GENERAL: She is a well-developed, well-nourished white female resting comfortably at this time. No acute GI distress. HEENT: Pupils equal, round, reactive to light. No obvious scleral icterus. Oropharyngeal - clear. Has dental caries. No tongue deviation or candidal lesions. Hearing was intact. NECK: Supple without lymphadenopathy. LUNGS: Clear to auscultation and percussion. HEART: Regular rhythm. No gross murmurs are heard. ABDOMEN: Soft. There is epigastric tenderness but no rebound tenderness, organomegaly or masses. No Pinedo's sign. Her ileostomy is in the right lower quadrant and does have the brown to blackish stool, but no red stool. EXTREMITIES: No cyanosis, clubbing or edema. Cranial nerves are grossly intact. I did not assess her gait. LABORATORY DATA Laboratories reveal a BUN of 23, is elevated, creatinine 1.30 is elevated, total bilirubin is 0.1, SGOT of 36, SGPT of 40 - all normal. Alk phos elevated at 129. Total protein 7.7, albumin 3.7 - both normal. Potassium 3.6, sodium 141. Prothrombin time 10.1, INR 0.9, PTT 23.9. Hemoglobin 12.1, hematocrit 35.6, platelet count 324,000. Hemoglobin this morning at 03:00 a.m. was 10.9 and this morning at 7:15, hemoglobin is 10.8 with hematocrit 32.2. IMPRESSION 1. Melena - she has melena in the ileostomy. She does admit to taking some Excedrin a few weeks ago and she has stopped her Nexium temporarily. There is history of gastric and duodenal ulcers. I suspect she has recurrent ulcers. The epigastric pain is suggestive of this also. 2. Anemia - more likely blood loss anemia. 3. Crohn's disease - she had extensive surgery in this regard. No evidence of Crohn's on her previous ileoscopy and upper endoscopy. 4. History of PBC and abnormal LFTs - she is supposed to be taking ursodiol. She will get back on this. RECOMMENDATIONS 1. Upper endoscopy this morning. All indications, risks, complications and benefit, alternatives were discussed with her including risk of bleeding, perforation, infection, small possibility of , she is agreeable. 2. Continue PPI. 3. Avoid aspirin and NSAIDs. 4. Further recommendations after the upper endoscopy is done. Khurram Trujillo MD SP/TERENCE /8:21 AM /9:23 AM [facility]
[2017-02-06] MEDS: PANTOPRAZOLE SODIUM 40 MG VIAL IV PUSH SCH ×2 (10:30→20:40)
[2017-02-06 10:34] LABS: AUTOMATED NEUTROPHIL # 5.2 TH/MM3 (1.8-7.7); BASOPHIL % 0.6 % (0.0-2.0); EOSINOPHIL # 0.2 TH/MM3 (0-0.4); EOSINOPHIL % 2.2 % (0.0-4.0); HEMATOCRIT 31.8 % (35.0-46.0); HEMO FLAGS DIFF FINAL; LYMPH % 29.6 % (9.0-44.0); LYMPHOCYTE # 2.4 TH/MM3 (1.0-4.8); MEAN CELL VOLUME 87.9 FL (80.0-100.0); MEAN CORPUSCULAR HEMOGLOBIN 29.2 PG (27.0-34.0); MEAN CORPUSCULAR HGB CONC 33.2 % (32.0-36.0); MONO % 4.6 % (0.0-8.0); PLATELET COUNT 242 TH/MM3 (150-450); RED BLOOD COUNT 3.62 MIL/MM3 (4.00-5.30); RED CELL DISTRIBUTION WIDTH 14.6 % (11.6-17.2); WHITE BLOOD COUNT 8.3 TH/MM3 (4.0-11.0)
[2017-02-06] MEDS: SODIUM CHLORIDE 0.9% FLUSH 10 ML FLUSH IV FLUSH SCH ×3 (10:37→23:02)
[2017-02-06] MEDS: SUCRALFATE 1 GM TAB PO SCH ×3 (10:48→20:40)
--- NOTE | 2017-02-06 11:16 | HHI.HP ---
[facility] Service [place] [facility] Primary Care Physician No Primary Care Physician Admission Diagnosis upper GI bleed Diagnoses: Chief Complaint: Black tarry stool and abdominal pain Travel History International Travel<30 Days: No Contact w/Intl Traveler <30 Da: No Traveled to Known Affected Are: No History of Present Illness 41 years old female with history of Crohn's disease status post colectomy and small bowel resection and ileostomy. Patient came to the ED complaining of severe epigastric pain around 6 out of 10 constant no radiation, no nausea or vomiting, positive black tarry stool. No fever or chills, patient had an EGD in June 2016 which showed multiple gastric ulcer and duodenal ulcer biopsies were taken and it was benign, she also had ileoscopy through the stoma which was unremarkable. Patient taking Nexium. Patient just came from EGD which seems to be showed an ulcer as per the patient. Currently she is doing well pain is subsided. Review of Systems All systems reviewed and was positive for what is mentioned in history of present illness otherwise negative Past Family Social History Past Medical History Crohn's disease status post total colectomy and partial small bowel resection and rectum resection History of gastric ulcer and duodenal ulcer Increased LFT and alkaline phosphatase with variant of a simple PBC Patient has history of hysterectomy Past Surgical History As above Allergies: Coded Allergies: Flagyl (Verified Allergy, Severe, Vomiting, 02/06/17) Morphine (Verified Allergy, Severe, Chest pain, 02/06/17) Ciprofloxacin (Verified Allergy, Intermediate, Nausea/Vomiting, 02/06/17) Macrobid (Verified Allergy, Intermediate, Nausea/Vomiting, 02/06/17) Sulfa (Verified Allergy, Intermediate, Nausea/Vomiting, 02/06/17) Adhesives (Verified Allergy, Mild, 02/06/17) Paper Tape Penicillin (Verified Allergy, Mild, Hives, 02/06/17) Family History Smoke pack per day for over 20 years, occasional alcohol or illicit drug abuse Physical Exam Vital Signs Vital Signs Date Time Temp Pulse Resp B/P Pulse Ox O2 Delivery O2 Flow Rate FiO2 02/06/17 08:30 97.9 60 16 108/65 99 02/06/17 08:00 96.0 66 20 108/78 94 02/06/17 06:39 18 02/06/17 04:05 97.6 19 20 106/70 96 02/06/17 03:52 63 18 102/66 98 Room Air 02/06/17 03:42 18 02/06/17 03:15 97.4 83 18 102/68 98 Room Air 02/06/17 02:20 87 18 112/81 98 Room Air 02/06/17 02:00 98 Room Air 02/06/17 01:20 88 18 119/77 96 Room Air 02/06/17 00:11 97.9 107 18 125/72 97 Physical Exam GENERAL: This is a well-nourished, well-developed patient, in no apparent distress. SKIN: No rashes, warm and dry HEAD: Atraumatic. Normocephalic. EYES: Pupils equal round and reactive. Extraocular motions intact. No scleral icterus. ENT: Nose without bleeding, or drainage, Airway patent. NECK: Trachea midline. Supple CARDIOVASCULAR: Regular rate and rhythm without murmurs, gallops, or rubs. RESPIRATORY: Fair air entry bilaterally. No wheezes, rales, or rhonchi. GASTROINTESTINAL: Abdomen soft, non-tender, nondistended. Positive bowel sounds MUSCULOSKELETAL: Extremities without clubbing, cyanosis, or edema. Pedal pulses appreciated NEUROLOGICAL: Awake and alert. Moves all extremity. Normal speech.no focal neurological deficit Laboratory Laboratory Tests Test 02/06/17 02/06/17 02/06/17 02/06/17 01:20 03:10 07:15 10:20 White Blood Count 17.2 8.3 Red Blood Count 4.15 3.62 Hemoglobin 12.0 10.9 10.8 10.6 Hematocrit 35.6 33.6 32.2 31.8 Mean Corpuscular Volume 86.0 87.9 Mean Corpuscular Hemoglobin 28.9 29.2 Mean Corpuscular Hemoglobin 33.7 33.2 Concent Red Cell Distribution Width 14.4 14.6 Platelet Count 324 242 Mean Platelet Volume 8.5 7.7 Neutrophils (%) (Auto) 73.3 63.0 Lymphocytes (%) (Auto) 18.6 29.6 Monocytes (%) (Auto) 5.5 4.6 Eosinophils (%) (Auto) 1.0 2.2 Basophils (%) (Auto) 1.6 0.6 Neutrophils # (Auto) 12.6 5.2 Lymphocytes # (Auto) 3.2 2.4 Monocytes # (Auto) 0.9 0.4 Eosinophils # (Auto) 0.2 0.2 Basophils # (Auto) 0.3 0.0 CBC Comment AUTO DIFF DIFF FINAL Differential Comment AUTO DIFF CONFIRMED Platelet Estimate NORMAL Platelet Morphology Comment NORMAL Red Cell Morphology Comment NORMAL Prothrombin Time 10.1 Prothromb Time International 0.9 Ratio Activated Partial 23.9 Thromboplast Time Urine Color YELLOW Urine Turbidity SLIGHT Urine pH 5.0 Urine Specific [place] GREATER THAN 1.035 Urine Protein 30 Urine Glucose (UA) NEG Urine Ketones TRACE Urine Occult Blood NEG Urine Nitrite NEG Urine Bilirubin NEG Urine Leukocyte Esterase NEG Urine RBC 0-2 Urine WBC 0-2 Urine Squamous Epithelial 0-5 Cells Urine Bacteria MANY Microscopic Urinalysis Comment CULTURE INDICATED Sodium Level 141 Potassium Level 3.6 Chloride Level 105 Carbon Dioxide Level 26.9 Anion Gap 9 Blood Urea Nitrogen 23 Creatinine 1.30 Estimat Glomerular Filtration 45 Rate Random Glucose 95 Calcium Level 9.2 Total Bilirubin 0.1 Aspartate Amino Transf 36 (AST/SGOT) Alanine Aminotransferase 40 (ALT/SGPT) Alkaline Phosphatase 129 Total Protein 7.7 Albumin 3.7 Blood Type A POSITIVE Antibody Screen NEGATIVE Blood Bank Comment Date/Time Procedure Status Source Growth 02/06/17 01:20 Urine Culture Received Urine Clean Catch Pending Result Diagram: 02/06/17 1020 02/06/17 0120 Assessment and Plan Assessment and Plan 5 years old female with history of Crohn's disease status us colectomy and heart show small bowel resection came with Severe epigastric pain and melena, hemoglobin still stable dropped from 12-10.8 History of Crohn's disease status post colectomy/small bowel partial resection Leukocytosis with WBC 17,000 History of gastric ulcer and duodenal ulcer Increased LFT and alkaline phosphatase with variant of a simple PBC DVT prophylaxis Plan: Admit for iv fluid, H&H monitoring, type cross and match 2 units of blood on hold The management GI consulted appreciated their input status post EGD, with her history of multiple ulcer, raise questionable doubt about ZED, patient stated she does have hot flashes and diarrhea due to her hysterectomy and bowel resection which is not helpful Repeat CBC to follow on WBC increase DVT prophylaxis with SCD no chemical due to GI bleed Discussed Condition With Patient Physician Certification 2 Midnight Certification Type: Admission for Inpatient Services Order for Inpatient Services The services are ordered in accordance with Medicare regulations or non- Medicare payer requirements, as applicable. In the case of services not specified as inpatient-only, they are appropriately provided as inpatient services in accordance with the 2-midnight benchmark. Estimated LOS (days): 2 days is the estimated time the patient will need to remain in the hospital, assuming treatment plan goals are met and no additional complications. Post-Hospital Plan: Not yet determined Nasir Jimenez MD February 06, 2017 11:16
[2017-02-06] MEDS ORDERED: PROPOFOL 200 MG/20 ML AMP IV ONE (11:20)
[2017-02-06 15:59] LABS: HEMATOCRIT 31.9 % (35.0-46.0); REVIEW FLAG FINAL
[2017-02-06] MEDS ORDERED: ACETAMINOPHEN 500 MG CPLT PO PRN (21:15)
[2017-02-06] MEDS: ONDANSETRON HCL 4 MG/2 ML VIAL IVP PRN (23:01)
[2017-02-07] VITALS: BP 160/83; PULSE 63; RESP 18; TEMP 95.9; O2SAT 97
[2017-02-07] MEDS ORDERED: HYDROmorphone HCL PF 1 MG/ML VIAL IV PUSH ONE (03:00)
[2017-02-07] MEDS: SUCRALFATE 1 GM TAB PO SCH ×3 (07:10→16:00)
[2017-02-07] MEDS: ONDANSETRON HCL 4 MG/2 ML VIAL IVP PRN ×2 (07:10→10:51)
[2017-02-07] MEDS: HYDROmorphone HCL PF 1 MG/ML VIAL IV PUSH PRN ×2 (07:11→10:51)
[2017-02-07] MEDS: SODIUM CHLOR 0.9% 1000 ML INJ 1,000 ML IV SCH (07:15)
[2017-02-07 07:59] LABS: AUTOMATED NEUTROPHIL # 3.4 TH/MM3 (1.8-7.7); BASOPHIL # 0.1 TH/MM3 (0-0.2); BASOPHIL % 1.1 % (0.0-2.0); EOSINOPHIL # 0.1 TH/MM3 (0-0.4); HEMATOCRIT 33.8 % (35.0-46.0); HEMO FLAGS DIFF FINAL; LYMPH % 36.3 % (9.0-44.0); LYMPHOCYTE # 2.3 TH/MM3 (1.0-4.8); MEAN CELL VOLUME 87.3 FL (80.0-100.0); MEAN CORPUSCULAR HEMOGLOBIN 29.4 PG (27.0-34.0); MEAN CORPUSCULAR HGB CONC 33.6 % (32.0-36.0); MONO % 4.8 % (0.0-8.0); NEUT % 55.8 % (16.0-70.0); PLATELET COUNT 232 TH/MM3 (150-450); RED BLOOD COUNT 3.88 MIL/MM3 (4.00-5.30); RED CELL DISTRIBUTION WIDTH 15.3 % (11.6-17.2); WHITE BLOOD COUNT 6.2 TH/MM3 (4.0-11.0)
[2017-02-07 08:00] VITALS: BP 103/66; PULSE 57; RESP 20; TEMP 98.6; O2SAT 96
[2017-02-07 08:00] LABS: POTASSIUM 4.3 MEQ/L (3.5-5.1)
[2017-02-07 08:04] LABS: BICARBONATE 28.5 MEQ/L (21.0-32.0)
[2017-02-07] MEDS: PANTOPRAZOLE SODIUM 40 MG VIAL IV PUSH SCH (10:31)
[2017-02-07] MEDS ORDERED: CARA1TAB6 PO (10:34)
[2017-02-07] MEDS ORDERED: PROT40TA PO (10:34)
--- NOTE | 2017-02-07 10:56 | HHI.GIFU ---
GI Follow-up Note Consult Follow-up Subjective: Patient laying in bed --c/o post prandial epi gastric pain after a liquid diet. she is needing narcotics. stools browner Objective: PHYSICAL EXAMINATION: Vitals signs stable No fever . CHEST: Chest is clear to auscultation and percussion. CARDIAC: Regular rate and rhythm with no murmur gallop or rubs. ABDOMEN: Soft, nondistended, epigastric tenderness; no hepatosplenomegaly; bowel sounds are present in all four quadrants. EXTREMITIES: No clubbing, cyanosis, or edema. SKIN: Normal; no rash; no jaundice. STORE PRODUCT DEMONSTRATOR: No focal deficits; alert and oriented times three. Available Data (labs, X- Rays, Procedures) : Hgb 11.4. WBC 6,200 ASSESSMENT/PLAN: 1. Melena/epigastic pain-pt has several gastric ulcers. none were so large to explain her degree of pain. ?adhesion ?PSBO 2. Anemia-better 3. Crohn's 4. PBC/abnormal LFT 5. Gastric ulcer/duodenitis PLAN: 1. amylase, lipase and CT scan 2. Cont PPI and carafate 3.Avoid ASA/NSAIDS It was a pleasure seeing Zulma Shah Thank you for this consult. Entered by: Khurram Yanes MD February 07, 2017 10:56
--- NOTE | 2017-02-07 11:12 | HHI.PR ---
Subjective Remarks Still feeling pain in her abdomen about 3 out of 6 Still having nausea whenever she tried any food D/W GI he doesn't think it's related to her ulcer, recommended CT of the abdomen and event negative she can be discharged and follow up as an outpatient , recommended DC Dilaudid Hemoglobin stable Objective Vitals Vital Signs Date Time Temp Pulse Resp B/P Pulse Ox O2 Delivery O2 Flow Rate FiO2 02/07/17 08:00 98.6 57 20 103/66 96 02/07/17 00:00 95.9 63 18 160/83 97 02/06/17 20:00 97.4 56 20 94/59 98 02/06/17 16:00 96.0 60 20 96/67 97 02/06/17 15:49 18 02/06/17 12:00 98.0 55 20 104/69 97 I/O 02/06/17 02/06/17 02/06/17 02/07/17 02/07/17 02/07/17 07:00 15:00 23:00 07:00 15:00 23:00 Intake Total 2000 ml 300 ml 742 ml 800 ml Balance 2000 ml 300 ml 742 ml 800 ml Intake Oral 742 ml IV Total 2000 ml 800 ml Other 300 ml # Voids 1 # Bowel Movements 1 0 Result Diagram: 02/07/1772202/07/17722 Objective Remarks - GENERAL: This is a well-nourished, well-developed patient, in no apparent distress. SKIN: No rashes, warm and dry HEAD: Atraumatic. Normocephalic. EYES: Pupils equal round and reactive. Extraocular motions intact. No scleral icterus. ENT: Nose without bleeding, or drainage, Airway patent. NECK: Trachea midline. Supple CARDIOVASCULAR: Regular rate and rhythm without murmurs, gallops, or rubs. RESPIRATORY: Fair air entry bilaterally. No wheezes, rales, or rhonchi. GASTROINTESTINAL: Abdomen soft, positive tenderness to palpation, nondistended. Positive bowel sounds MUSCULOSKELETAL: Extremities without clubbing, cyanosis, or edema. Pedal pulses appreciated NEUROLOGICAL: Awake and alert. Moves all extremity. Normal speech.no focal neurological deficit Procedures EGD showed 1. ESOPHAGUS; The gastroesophageal junction is located at 38 cm. No mucosal lesions hiatal hernias or esophageal varices were seen. No blood was noted and in the esophagus. 2. STOMACH - the stomach seen straight view as a rectal packs you. It did quite fully. No masses or polypoid lesions or gastric varices seen. In the dependent area to the stomach there was bile noted and suctioned, under the bile, in the mid body stomach. It was showed diffuse 1 cm non bleeding limited ulcer. This was biopsied. In the immediate prepyloric area there is a 5 mm punch out ulcer - clean base and not bleeding. There is also 5 mm, pyloric channel ulcer - not non bleeding. Both ulcers were also biopsied. Biopsies also taken from the antrum, body and fundus and angularis to check for H. Pylori. There is also antral scarring noted. no active ulcers seen. 3. DUODENUM - pylorus is patent. Within the duodenal bulb there is duodenitis but no ulcer is seen. The second, third portion were grossly remarkable. A/P Assessment and Plan 5 years old female with history of Crohn's disease status us colectomy and heart show small bowel resection came with Severe epigastric pain and melena, hemoglobin still stable dropped from 12-10.8 History of Crohn's disease status post colectomy/small bowel partial resection Leukocytosis with WBC 17,000 History of gastric ulcer and duodenal ulcer Increased LFT and alkaline phosphatase with variant of a simple PBC DVT prophylaxis Plan: Admit for iv fluid, H&H monitoring, type cross and match 2 units of blood on hold The management GI consulted appreciated their input status post EGD, with her history of multiple ulcer, D/W GI he doesn't think it's related to her ulcer, recommended CT of the abdomen and event negative she can be discharged and follow up as an outpatient Repeat CBC to follow on WBC increase DVT prophylaxis with SCD no chemical due to GI bleed Discharge Planning Discharge patient to home Condition on discharge: Improved Regular Diet as tolerated Ad Ambreen activity Rx written: Protonix and Carafate Follow-up with primary care physician and GI in one week Nasir Jimenez MD February 07, 2017 11:11
[2017-02-07] MEDS ORDERED: DIATRIZOATE MEGLUM/DIATRIZOATE SOD 9 ML CUP PO ONE (11:30)
[2017-02-07 11:43] LABS: AMYLASE 65 U/L (25-115)
[2017-02-07 12:00] VITALS: BP 107/68; PULSE 51; RESP 20; TEMP 97.3; O2SAT 97
--- NOTE | 2017-02-07 12:59 | MR ---
cc: LYLE LACY MD, LOUIS M. MD PASRICHA, SUNIL P. M.D. DATE: 02/06/2017 DATE OF : 1975 INDICATIONS FOR PROCEDURE: Esophagogastroduodenoscopy and biopsy note. HISTORY OF PRESENT ILLNESS: The patient is a pleasant 41 year-old white female who has presented with melena, she has had no history of peptic ulcer disease. The Hemoglobin has stabilized in the 10 range. This procedure is being done to evaluate the source of the bleeding. ENDOSCOPIST: Khurram Trujillo MD ASSISTANTS: Gastrointestinal laboratory personnel. ANESTHESIA: Diprivan per BOBJ DEVELOPER. MEDICATIONS: See above. TYPE OF INSTRUMENT: Adult video Pentax gastroscope PHYSICAL EXAMINATION See consultation done today - the physical exam was unchanged. CONTINUOUS MONITORING: The patient had routine blood pressure monitoring, pulse oximeter/oxygen, and cardiac monitoring. INFORMED CONSENT: Obtained with full verbal understanding, the indication for procedure (see above), risks and complications (bleeding, perforation, infection, arrhythmias, mediastinitis, small possibility of , etc.), limitations (we may not see everything due to prep and anatomy especially if there is a lot of blood in the stomach or food is there, etc.), alternatives (upper GI, small bowel follow through, surgery, etc.), benefits (we can potentially see the entire esophagus, stomach, and part of the duodenum, and biopsy, cauterize, inject or dilate various lesions or abnormalities if needed, etc.) All questions were answered, all parties agreed to the procedure. DESCRIPTION OF PROCEDURE: The patient was placed in the left lateral decubitus position. The above noted sedation was given in very slow incremental doses. Once an optimal level of sedation was achieved, then the above mentioned gastroscope was inserted and passed into the hypopharyngeal area, esophagus which was inspected in its entire length, through the stomach, which was seen in straight view, as well as retroflex view, and the gastric pool was suctioned. The stomach was fully insufflated. The pylorus was entered and the scope passed through the duodenal bulb, second and third portion. All air and secretion were suctioned prior to removal of the scope. FINDINGS: 1. ESOPHAGUS; The gastroesophageal junction is located at 38 cm. No mucosal lesions , hiatal hernias or esophageal varices were seen. No blood was noted and in the esophagus. 2. STOMACH - the stomach seen straight view as retroflexed view. It did distend quite fully. No masses or polypoid lesions or gastric varices seen. In the dependent area to the stomach there was bile noted and suctioned, under the bile, in the mid body stomach there was superficial linear 1 cm non bleeding limited ulcer. This was biopsied. In the immediate prepyloric area there is a 5 mm punch out ulcer - clean base and not bleeding. There is also 5 mm, pyloric channel ulcer - not non bleeding. Both ulcers were also biopsied. Biopsies also taken from the antrum, body and fundus and angularis to check for H. Pylori. There is also antral scarring noted. no active ulcers seen there. 3. DUODENUM - pylorus is patent. Within the duodenal bulb there is duodenitis but no ulcer is seen. The second, third portion were grossly remarkable. SPECIMENS Gastric ulcer for H. Pylori and Crohn's TOLERANCE OF PROCEDURE: The scope was totally withdrawn, the patient tolerated the procedure quite well. No immediate compliations. The lungs, heart and bowel sounds and the rest of the procedure was unchanged postprocedure. IMPRESSION 1. Multiple gastric ulcers as mentioned above (gastric and pyloric channel) biopsied. No ulcers were bleeding and all the ulcers had clean bases. 2. Antral scarring noted--probable previous peptic ulcer disease. 2. Bile staining in the stomach suctioned. 3. Duodenitis. PLAN: 1. Continue proton pump inhibitor. 2. Add Carafate. 3. Avoid aspirin, NSAIDs. 4. Stop smoking 5. Advance diet. 6. The patient follow up with Dr. Harris on outpatient to go over the biopsies and make further recommendations. MD RADHIKA Valdes/jessenia /9:41 AM /12:41 PM [facility]
[2017-02-07] MEDS ORDERED: IOHEXOL 350 MG/ML 10 ML VIAL (for RAD DIAG) IV ONE (13:23)
--- NOTE | 2017-02-07 14:35 | RADHPO ---
EXAM DATE/TIME: 02/07/2017 13:13 [facility] COMPARISON: CT ABDOMEN W/O CONTRAST, October 11, 2016, 12:40. CT ABDOMEN & PELVIS W CONTRAST, June 04, 2016 , 2:27. INDICATIONS : Epigastric pain. IV CONTRAST: 80 cc Omnipaque 350 (iohexol) IV ORAL CONTRAST: Partial prescribed oral contrast ingested. RADIATION DOSE: 9.31 CTDIvol (mGy) MEDICAL HISTORY : Pancreatitis. Crohns disease. SURGICAL HISTORY : Colon resection. Hysterectomy.Ileostomy. ENCOUNTER: Initial ACUITY: 4 - 6 days PAIN SCALE: 2/10 LOCATION: Epigastric TECHNIQUE: Volumetric scanning of the abdomen and pelvis was performed. Using automated exposure control and ad justment of the mA and/or kV according to patient size, radiation dose was kept as low as reasonably achievable to obtain optimal diagnostic quality images. FINDINGS: LOWER LUNGS: Subsegmental airspace disease is identified in both lower lobes. LIVER: Homogeneous density without lesion. There is no dilation of the biliary tree. The gallbladder is mil dly distended and there is minimal pericholecystic fluid. No significant wall thickening is noted. Th ere are no calcified gallstones. SPLEEN: Normal size without lesion. PANCREAS: Within normal limits. KIDNEYS: Normal in size and shape. There is no mass, stone or hydronephrosis. ADRENAL GLANDS: Within normal limits. VASCULAR: There is no aortic aneurysm. BOWEL/MESENTERY: Small amount of free fluid is identified within the left side of the pelvis. A right-sided ileostomy is noted. Postsurgical changes are noted of subtotal colectomy. Intestinal loops are otherwise unrema rkable. There is no evidence of ileus, free air or mass effect. ABDOMINAL WALL: Within normal limits. RETROPERITONEUM: There is no lymphadenopathy. BLADDER: No wall thickening or mass. REPRODUCTIVE: Within normal limits. INGUINAL: There is no lymphadenopathy or hernia. MUSCULOSKELETAL: Within normal limits for patient age. CONCLUSION: Mildly distended gallbladder with minimal pericholecystic fluid. Status post colectomy with right lower quadrant ileostomy. Minimal free fluid in the left side of pelvis. No evidence of acute intestinal abnormality. Bibasilar subsegmental airspace disease. No other significant abnormalities. Dhaval Khalil MD on February 07, 2017 at 14:23 Board Certified Radiologist. This report was verified electronically.
[2017-02-07 16:00] VITALS: BP 120/70; PULSE 54; RESP 20; TEMP 96.9; O2SAT 96
== END 2017-02-07 18:39 | disposition home or self-care (01) ==
LOC: PHED 00:07 → PHEDA 03:01 → PH3A 03:59
PROVIDERS: ADMIT Hospitalist; ATTEND Hospitalist
DX: K50.918 Crohn's disease, unspecified, with other complication (principal); D72.829 Elevated white blood cell count, unspecified; F17.210 Nicotine dependence, cigarettes, uncomplicated; K29.81 Duodenitis with bleeding; K29.61 Other gastritis with bleeding; D62 Acute posthemorrhagic anemia
CPT/HCPCS: 43239; 74177; 80048; 80053; 81001; 82150; 83690; 85014; 85018; 85025; 85610; 85730; 86850; 86900; 86901; 87086; 88305; 88312; 96361; 96374; 96375; 99285; C9113; G0378; J1170; J2405; J7030; J7120; Q9963; Q9967

== ENCOUNTER 2017-07-13 14:38 | Emergency (ER) | payer MEDICARE ==
[~2017-07-13] VITALS: Ht 170.2 cm; Wt 72.1 kg
[~2017-07-13 14:38] MED LIST changes: +CARA1TAB6 PO; +PROT40TA PO
[2017-07-13 14:57] VITALS: BP 128/59; PULSE 84; RESP 16; TEMP 98.4; O2SAT 100
[2017-07-13 15:29] LABS: BLOOD, URINE NEG (NEG); GLUCOSE,URINE NEG (NEG); KETONE, URINE NEG (NEG); NITRITE,URINE NEG (NEG)
[2017-07-13 15:37] LABS: CHLORIDE 107 MEQ/L (98-107); POTASSIUM 4.1 MEQ/L (3.5-5.1); SODIUM (NA) 140 MEQ/L (136-145)
[2017-07-13 15:39] LABS: METHOD OF COLLECTION CLEAN CATCH; URINE COLOR YELLOW (YELLW/STRAW)
[2017-07-13 15:40] LABS: BACTERIA, URINE MANY /hpf; COMMENT (UR) CULTURE INDICATED; COMMENT2 (UR) MUCOUS PRESENT; CULTURE IF INDICATED CULTURE INDICATED; SQUAMOUS EPITHELIAL CELL URINE 0-5 /hpf (0-5)
[2017-07-13 15:43] LABS: ANION GAP 7 MEQ/L (5-15); BICARBONATE 26.1 MEQ/L (21.0-32.0); BLOOD UREA NITROGEN 17 MG/DL (7-18)
[2017-07-13] MEDS ORDERED: ONDANSETRON HCL 4 MG/2 ML VIAL IV ONE (15:45)
[2017-07-13] MEDS ORDERED: SODIUM CHLOR 0.9% 1000 ML INJ 1,000 ML IV SCH (15:45)
[2017-07-13] MEDS ORDERED: HYDROmorphone HCL PF 1 MG/ML VIAL IV PUSH ONE (15:45)
[2017-07-13 15:46] LABS: ALT (GPT) 29 U/L (10-53); AST (GOT) 24 U/L (15-37); AUTOMATED NEUTROPHIL # 4.4 TH/MM3 (1.8-7.7); BASOPHIL # 0.1 TH/MM3 (0-0.2); BASOPHIL % 0.9 % (0.0-2.0); EOSINOPHIL # 0.1 TH/MM3 (0-0.4); EOSINOPHIL % 1.1 % (0.0-4.0); GLOMERULAR FILTRATION RATE 61 ML/MIN (>89); HEMATOCRIT 37.2 % (35.0-46.0); HEMO FLAGS DIFF FINAL; LYMPH % 33.2 % (9.0-44.0); LYMPHOCYTE # 2.5 TH/MM3 (1.0-4.8); MEAN CORPUSCULAR HEMOGLOBIN 27.4 PG (27.0-34.0); MONO % 5.3 % (0.0-8.0); NEUT % 59.5 % (16.0-70.0); PLATELET COUNT 422 TH/MM3 (150-450); RED BLOOD COUNT 4.48 MIL/MM3 (4.00-5.30); RED CELL DISTRIBUTION WIDTH 14.8 % (11.6-17.2); WHITE BLOOD COUNT 7.5 TH/MM3 (4.0-11.0)
[2017-07-13 15:47] LABS: TOTAL BILIRUBIN ADULT 0.2 MG/DL (0.2-1.0)
[2017-07-13 15:49] LABS: ALKALINE PHOSPHATASE 116 U/L (45-117)
[2017-07-13] MEDS ORDERED: HYDR-3533 PO (16:22)
--- NOTE | 2017-07-13 16:22 | PD ---
HPI Chief Complaint: Abdominal Pain Time Seen by Provider: 15:09 Travel History International Travel<30 days: No Contact w/Intl Traveler<30days: No Traveled to known affect area: No History of Present Illness HPI So 42-year-old woman presents to the emergency department complaining of abdominal pain. She is extensive medical history including Crohn's disease, ulcers, multiple abdominal surgeries and previous colectomy. She started getting lower abdominal pain for the past week or so. Skin constant the past 3 days or so. No fevers or chills. No nausea or vomiting. No change in her ostomy output. No blood in her ostomy. She's been under a lot of stress given recent family . She's not sure this is related or not. She's not had trouble with her Crohn's disease since 1998, when she had her ostomy. She has had trouble with ulcers and stomach problems. History Past Medical History Narrative Medical Crohn's disease, previous colectomy, ileostomy Peptic ulcer disease Tetanus Vaccination: > 5 Years Influenza Vaccination: No : 0 Social History Alcohol Use: No (RARE) Tobacco Use: Yes (09/30 PPD) Allergies-Medications (Allergen,Severity, Reaction): Coded Allergies: metronidazole (Unverified Allergy, Severe, Vomiting, 07/13/17) morphine (Unverified Allergy, Severe, Chest pain, 07/13/17) Sulfa (Sulfonamide Antibiotics) (Unverified Allergy, Intermediate, Nausea/ Vomiting, 07/13/17) ciprofloxacin (Unverified Allergy, Intermediate, Nausea/Vomiting, 07/13/17 ) nitrofurantoin (Unverified Allergy, Intermediate, Nausea/Vomiting, ) adhesive (Unverified Allergy, Mild, 07/13/17) Paper Tape penicillin G (Unverified Allergy, Mild, Hives, 07/13/17) Reported Meds & Prescriptions Reported Meds & Active Scripts Active Reported Nexium (Esomeprazole DR) 20 Mg Capdr 20 Mg PO BID Review of Systems Except as stated in HPI: all other systems reviewed are Neg Physical Exam Narrative GENERAL: Well-appearing 42 year-old woman, no acute distress. SKIN: Focused skin assessment warm/dry. HEAD: Atraumatic. Normocephalic. EYES: Pupils equal and round. No scleral icterus. No injection or drainage. ENT: No nasal bleeding or discharge. Mucous membranes pink and moist. NECK: Trachea midline. No JVD. CARDIOVASCULAR: Regular rate and rhythm. No murmur appreciated. RESPIRATORY: No accessory muscle use. Clear to auscultation. Breath sounds equal bilaterally. GASTROINTESTINAL: Multiple surgical scars in the abdomen. Right sided ostomy with normal output. Mild diffuse tenderness. No rebound or guarding. No peritonitis. MUSCULOSKELETAL: No obvious deformities. No clubbing. No cyanosis. No edema. NEUROLOGICAL: Awake and alert. No obvious cranial nerve deficits. Motor grossly within normal limits. Normal speech. PSYCHIATRIC: Appropriate mood and affect; insight and judgment normal. Data Data Last Documented VS Vital Signs Date Time Temp Pulse Resp B/P (MAP) Pulse Ox O2 Delivery O2 Flow Rate FiO2 07/13/17 14:57 98.4 84 16 128/59 (82) 100 Orders Orders Complete Blood Count With Diff (07/13/17 15:11) Comprehensive Metabolic Panel (07/13/17 15:11) Lipase (07/13/17 15:11) Iv Access Insert/Monitor (07/13/17 15:11) Urinalysis - C+S If Indicated (07/13/17 15:11) Ed Urine Pregnancytest Poc (07/13/17 15:11) Sodium Chlor 0.9% 1000 Ml Inj (Ns 1000 M (07/13/17 15:45) Ondansetron Inj (Zofran Inj) (07/13/17 15:45) Hydromorphone Pf Inj (Dilaudid Pf Inj) (07/13/17 15:45) Urine Culture (07/13/17 15:15) Labs Laboratory Tests Test 07/13/17 15:15 White Blood Count 7.5 TH/MM3 Red Blood Count 4.48 MIL/MM3 Hemoglobin 12.3 GM/DL Hematocrit 37.2 % Mean Corpuscular Volume 83.0 FL Mean Corpuscular Hemoglobin 27.4 PG Mean Corpuscular Hemoglobin Concent 33.0 % Red Cell Distribution Width 14.8 % Platelet Count 422 TH/MM3 Mean Platelet Volume 8.1 FL Neutrophils (%) (Auto) 59.5 % Lymphocytes (%) (Auto) 33.2 % Monocytes (%) (Auto) 5.3 % Eosinophils (%) (Auto) 1.1 % Basophils (%) (Auto) 0.9 % Neutrophils # (Auto) 4.4 TH/MM3 Lymphocytes # (Auto) 2.5 TH/MM3 Monocytes # (Auto) 0.4 TH/MM3 Eosinophils # (Auto) 0.1 TH/MM3 Basophils # (Auto) 0.1 TH/MM3 CBC Comment DIFF FINAL Differential Comment Urine Collection Type CLEAN CATCH Urine Color YELLOW Urine Turbidity MOD Urine pH 6.0 Urine Specific [place] 1.029 Urine Protein NEG mg/dL Urine Glucose (UA) NEG mg/dL Urine Ketones NEG mg/dL Urine Occult Blood NEG Urine Nitrite NEG Urine Bilirubin NEG Urine Leukocyte Esterase NEG Urine WBC 6-8 /hpf Urine Squamous Epithelial Cells 0-5 /hpf Urine Amorphous Sediment MOD Urine Bacteria MANY /hpf Microscopic Urinalysis Comment CULTURE INDICATED Urine Collection Time 1515 Blood Urea Nitrogen 17 MG/DL Creatinine 1.00 MG/DL Random Glucose 85 MG/DL Total Protein 7.5 GM/DL Albumin 3.6 GM/DL Calcium Level 8.8 MG/DL Alkaline Phosphatase 116 U/L Aspartate Amino Transf (AST/SGOT) 24 U/L Alanine Aminotransferase (ALT/SGPT) 29 U/L Total Bilirubin 0.2 MG/DL Sodium Level 140 MEQ/L Potassium Level 4.1 MEQ/L Chloride Level 107 MEQ/L Carbon Dioxide Level 26.1 MEQ/L Anion Gap 7 MEQ/L Estimat Glomerular Filtration Rate 61 ML/MIN Lipase 397 U/L [facility] Medical Decision Making Medical Screen Exam Complete: Yes Emergency Medical Condition: Yes Interpretation(s) LABS: CBC unremarkable. CMP unremarkable Lipase 397 UA trace pyuria, many bacteria Differential Diagnosis Abdominal pain, UTI, gastritis, peptic ulcer disease, Crohn's flare, other Narrative Course Medical decision-making francesco schaefer is a 42-year-old woman who presents to the emergency department with abdominal pain. She has extensive history. Previous Crohn's disease. She's not had trouble with her Crohn's disease since 1998. She's had stomach problems presents also been under a lot of stress. She overall looks well. She is a benign abdominal exam. She's had innumerable CTs of her abdomen and her lifetime. At this point, given her well appearance, lack of change in her output from her ostomy, no vomiting, no fevers, benign exam, will recommend against CT imaging. We'll recommend symptomatic treatment close outpatient follow-up, return for any worsening symptoms. Diagnosis Primary Impression: Abdominal pain Additional Instructions: Take Lortab as prescribed. Follow up with her primary doctor in next 2-4 days. Return to the emergency department for any new or worsening symptoms. Med/Other Pt SpecificInfo: Prescription(s) given Scripts Hydrocodone-Acetaminophen (Lortab) 5-325 Mg Tab 1-2 TAB PO Q6H Y for PAIN, #12 TAB 0 Refills Prov: Danish Butler MD 07/13/17 Disposition: 01 DISCHARGE HOME Condition: Stable Danish Butler MD Jul 13, 2017 16:22
[2017-07-13 16:38] VITALS: BP 100/53; PULSE 69; RESP 16; O2SAT 98
== END 2017-07-13 16:41 | disposition home or self-care (01) ==
LOC: PHED 14:38
DX: R10.9 Unspecified abdominal pain (principal); K50.90 Crohn's disease, unspecified, without complications; F17.200 Nicotine dependence, unspecified, uncomplicated
CPT/HCPCS: 80053; 81001; 83690; 84703; 85025; 87086; 96361; 96374; 96375; 99284; J1170; J2405; J7030

== ENCOUNTER 2017-07-31 01:15 | Emergency (ER) | payer MEDICARE, MEDICAID ==
[~2017-07-31] VITALS: Ht 170.2 cm; Wt 73.1 kg
[~2017-07-31 01:15] MED LIST changes: -CARA1TAB6 PO; +HYDR-3533 PO; -PROT40TA PO
[2017-07-31 01:22] VITALS: BP 133/75; PULSE 83; RESP 12; TEMP 97.8; O2SAT 100
[2017-07-31 01:33] VITALS: BP 133/75; PULSE 83; RESP 12; TEMP 97.8; O2SAT 100
--- NOTE | 2017-07-31 01:55 | PD ---
HPI Chief Complaint: Abdominal Pain Time Seen by Provider: 01:34 Travel History International Travel<30 days: No Contact w/Intl Traveler<30days: No Traveled to known affect area: No History of Present Illness HPI The patient is a 42-year-old female that complains of left lower bone pain and cramping for the past 9 hours. She has a history of Crohn's disease and this is where it always hurts. She states that the last time she came in the emergency department they gave her some Dilaudid and watched her to where she could leave and drive. She denies any nausea, vomiting or fever. She is followed by Dr. White who wrote her 20 Lortab but she states she ran out of them. She states they last her about 3 weeks. She is waiting a referral to surgery, she has had a CT scan several weeks ago which showed nothing but they feel that scar tissue is what is causing her chronic pain. She states she has had 31 abdominal surgeries. She has had ulcers and multiple abdominal surgeries and previous colectomy. She denies any fever or chills. She states he's been under a lot of stress relating to her family. PFSH Past Medical History Hx Anticoagulant Therapy: No Arthritis: Yes (knees) Asthma: No Blood Disorders: No Heart Rhythm Problems: No Cancer: No Cardiovascular Problems: No High Cholesterol: No Chest Pain: No Congestive Heart Failure: No COPD: No Cerebrovascular Accident: No Diabetes: No Diminished Hearing: No Endocrine: No Gastrointestinal Disorders: Yes (CROHN'S DISEASE) GERD: Yes Genitourinary: No Hiatal Hernia: No Immune Disorder: No Kidney Stones: Yes Musculoskeletal: No Neurologic: No Psychiatric: No Reproductive: Yes (ovarian cysts; total hysterctomy) Respiratory: No Immunizations Current: No Migraines: Yes Pancreatitis: Yes Renal Failure: No Seizures: No Sleep Apnea: No Thyroid Disease: No Ulcer: Yes : 0 Past Surgical History Abdominal Surgery: Yes (OSTOMY) AICD: No Cardiac Surgery: No Ear Surgery: No Endocrine Surgery: No Eye Surgery: No Gynecologic Surgery: Yes (hysterectomy) Hysterectomy: Yes Joint Replacement: No Oral Surgery: Yes (root canal) Pacemaker: Yes Thoracic Surgery: Yes (R side lumpectomy) Other Surgery: Yes (31) Social History Alcohol Use: No (RARE) Tobacco Use: Yes (1 /2 PPD) Substance Use: No Allergies-Medications (Allergen,Severity, Reaction): Coded Allergies: metronidazole (Unverified Allergy, Severe, Vomiting, 07/31/17) morphine (Unverified Allergy, Severe, Chest pain, 07/31/17) Sulfa (Sulfonamide Antibiotics) (Unverified Allergy, Intermediate, Nausea/ Vomiting, 07/31/17) ciprofloxacin (Unverified Allergy, Intermediate, Nausea/Vomiting, 07/31/17) nitrofurantoin (Unverified Allergy, Intermediate, Nausea/Vomiting, 07/31/17 ) adhesive (Unverified Allergy, Mild, 07/31/17) Paper Tape penicillin G (Unverified Allergy, Mild, Hives, 07/31/17) Reported Meds & Prescriptions Reported Meds & Active Scripts Active Reported Nexium (Esomeprazole DR) 20 Mg Capdr 20 Mg PO BID Review of Systems Except as stated in HPI: all other systems reviewed are Neg Physical Exam Narrative GENERAL: The patient is alert, oriented 3 in moderate apparent distress with her left lower quadrant abdominal discomfort. Her vital signs are normal. SKIN: Focused skin assessment warm/dry. HEAD: Atraumatic. Normocephalic. EYES: Pupils equal and round. No scleral icterus. No injection or drainage. ENT: No nasal bleeding or discharge. Mucous membranes pink and moist. NECK: Trachea midline. No JVD. CARDIOVASCULAR: Regular rate and rhythm. No murmur appreciated. RESPIRATORY: No accessory muscle use. Clear to auscultation. Breath sounds equal bilaterally. GASTROINTESTINAL: Abdomen soft, with tenderness in the left lower quadrant to direct palpation, nondistended. Hepatic and splenic margins not palpable. There is no blood in her ostomy in the right lower quadrant. MUSCULOSKELETAL: No obvious deformities. No clubbing. No cyanosis. No edema. NEUROLOGICAL: Awake and alert. No obvious cranial nerve deficits. Motor grossly within normal limits. Normal speech. PSYCHIATRIC: Appropriate mood and affect; insight and judgment normal. Data Data Last Documented VS Vital Signs Date Time Temp Pulse Resp B/P (MAP) Pulse Ox O2 Delivery O2 Flow Rate FiO2 07/31/17 02:05 16 100 Room Air 07/31/17 01:33 97.8 83 Orders Orders Complete Blood Count With Diff (07/31/17 01:25) Comprehensive Metabolic Panel (07/31/17 01:25) Urinalysis - C+S If Indicated (07/31/17 01:25) Ed Urine Pregnancytest Poc (07/31/17 01:25) Iv Access Insert/Monitor (07/31/17 01:25) Oximetry (07/31/17 01:25) Lipase (07/31/17 01:25) Ketorolac Inj (Toradol Inj) (07/31/17 02:00) Urine Culture (07/31/17 01:57) Hydromorphone Pf Inj (Dilaudid Pf Inj) (07/31/17 02:30) Ondansetron Inj (Zofran Inj) (07/31/17 02:30) Labs Laboratory Tests Test 07/31/17 01:57 White Blood Count 10.9 TH/MM3 Red Blood Count 4.52 MIL/MM3 Hemoglobin 12.5 GM/DL Hematocrit 37.7 % Mean Corpuscular Volume 83.4 FL Mean Corpuscular Hemoglobin 27.6 PG Mean Corpuscular Hemoglobin Concent 33.1 % Red Cell Distribution Width 15.3 % Platelet Count 372 TH/MM3 Mean Platelet Volume 7.7 FL Neutrophils (%) (Auto) 60.9 % Lymphocytes (%) (Auto) 30.0 % Monocytes (%) (Auto) 4.7 % Eosinophils (%) (Auto) 1.4 % Basophils (%) (Auto) 3.0 % Neutrophils # (Auto) 6.6 TH/MM3 Lymphocytes # (Auto) 3.3 TH/MM3 Monocytes # (Auto) 0.5 TH/MM3 Eosinophils # (Auto) 0.2 TH/MM3 Basophils # (Auto) 0.3 TH/MM3 CBC Comment DIFF FINAL Differential Comment Urine Color YELLOW Urine Turbidity CLOUDY Urine pH 6.0 Urine Specific [place] 1.030 Urine Protein TRACE mg/dL Urine Glucose (UA) NEG mg/dL Urine Ketones NEG mg/dL Urine Occult Blood TRACE Urine Nitrite NEG Urine Bilirubin NEG Urine Leukocyte Esterase NEG Urine RBC 3-5 /hpf Urine WBC 6-8 /hpf Urine Squamous Epithelial Cells 6-8 /hpf Urine Calcium Oxalate Crystals MOD /hpf Urine Bacteria MOD /hpf Microscopic Urinalysis Comment CULTURE INDICATED Blood Urea Nitrogen 16 MG/DL Creatinine 0.85 MG/DL Random Glucose 90 MG/DL Total Protein 7.9 GM/DL Albumin 3.6 GM/DL Calcium Level 9.3 MG/DL Alkaline Phosphatase 124 U/L Aspartate Amino Transf (AST/SGOT) 19 U/L Alanine Aminotransferase (ALT/SGPT) 28 U/L Total Bilirubin 0.2 MG/DL Sodium Level 140 MEQ/L Potassium Level 3.5 MEQ/L Chloride Level 105 MEQ/L Carbon Dioxide Level 25.8 MEQ/L Anion Gap 9 MEQ/L Estimat Glomerular Filtration Rate 74 ML/MIN Lipase 356 U/L [facility] Medical Decision Making Medical Screen Exam Complete: Yes Emergency Medical Condition: Yes Medical Record Reviewed: Yes Interpretation(s) The CBC is normal. The urinalysis shows 6-8 white cells and moderate calcium oxalate crystals with moderate bacteria and culture is indicated. The complete metabolic profile shows a GFR of 74 and alkaline phosphatase of 124 but is otherwise normal. The lipase is 356. Differential Diagnosis Abdominal pain, Crohn's disease flare, small bowel obstruction-unlikely Narrative Course The patient states that the Toradol did not help. It is now 306 the patient has gotten 1 mg of IV Dilaudid at approximately 0230 this morning. Her pain is now 3 and this is acceptable to her. She is able to get up and walk around without any problem and does not appear to be having significant side effects of the Dilaudid. She drives a short distance and is told to be careful. Apparently, she has done this before without problem. She will be given a prescription for Lortab 10, #20 and will follow-up with the referral and Dr. Harris. Diagnosis Primary Impression: Abdominal pain Additional Impression: History of Crohn's disease Additional Instructions: Do not drink alcohol or drive on the Lortab 10. Follow-up with Dr. White and the referral that he will get. Med/Other Pt SpecificInfo: Prescription(s) given Scripts Hydrocodone-Acetaminophen (Lortab) 10-325 Mg Tab 1 TAB PO Q6H Y for PAIN, #20 TAB 0 Refills Prov: Amando Nolasco MD 07/31/17 Disposition: 01 DISCHARGE HOME Condition: Stable Amando Nolasco MD Jul 31, 2017 01:55
[2017-07-31] MEDS ORDERED: KETOROLAC TROMETHAMINE 60 MG/2 ML (IM) VIAL IVP ONE (02:00)
[2017-07-31 02:02] LABS: BLOOD, URINE TRACE (NEG); GLUCOSE,URINE NEG (NEG); KETONE, URINE NEG (NEG); NITRITE,URINE NEG (NEG)
[2017-07-31 02:03] LABS: AUTOMATED NEUTROPHIL # 6.6 TH/MM3 (1.8-7.7); BASOPHIL # 0.3 TH/MM3 (0-0.2); EOSINOPHIL # 0.2 TH/MM3 (0-0.4); EOSINOPHIL % 1.4 % (0.0-4.0); HEMATOCRIT 37.7 % (35.0-46.0); HEMO FLAGS DIFF FINAL; LYMPHOCYTE # 3.3 TH/MM3 (1.0-4.8); MEAN CELL VOLUME 83.4 FL (80.0-100.0); MEAN CORPUSCULAR HEMOGLOBIN 27.6 PG (27.0-34.0); MEAN CORPUSCULAR HGB CONC 33.1 % (32.0-36.0); MONO % 4.7 % (0.0-8.0); NEUT % 60.9 % (16.0-70.0); PLATELET COUNT 372 TH/MM3 (150-450); RED BLOOD COUNT 4.52 MIL/MM3 (4.00-5.30); RED CELL DISTRIBUTION WIDTH 15.3 % (11.6-17.2); WHITE BLOOD COUNT 10.9 TH/MM3 (4.0-11.0)
[2017-07-31 02:05] VITALS: RESP 16; O2SAT 100
[2017-07-31 02:07] LABS: URINE COLOR YELLOW (YELLW/STRAW)
[2017-07-31 02:09] LABS: BACTERIA, URINE MOD /hpf; CALCIUM OXALATE CRYSTALS,URINE MOD /hpf; COMMENT (UR) CULTURE INDICATED; CULTURE IF INDICATED CULTURE INDICATED
[2017-07-31 02:11] LABS: CHLORIDE 105 MEQ/L (98-107); POTASSIUM 3.5 MEQ/L (3.5-5.1); SODIUM (NA) 140 MEQ/L (136-145)
[2017-07-31 02:15] LABS: ANION GAP 9 MEQ/L (5-15); BICARBONATE 25.8 MEQ/L (21.0-32.0); BLOOD UREA NITROGEN 16 MG/DL (7-18)
[2017-07-31 02:18] LABS: ALT (GPT) 28 U/L (10-53); AST (GOT) 19 U/L (15-37); GLOMERULAR FILTRATION RATE 74 ML/MIN (>89)
[2017-07-31 02:19] LABS: TOTAL BILIRUBIN ADULT 0.2 MG/DL (0.2-1.0)
[2017-07-31 02:20] LABS: ALKALINE PHOSPHATASE 124 U/L (45-117)
[2017-07-31] MEDS ORDERED: HYDROmorphone HCL PF 1 MG/ML VIAL IV PUSH ONE (02:30)
[2017-07-31] MEDS ORDERED: ONDANSETRON HCL 4 MG/2 ML VIAL IV PUSH ONE (02:30)
[2017-07-31 03:06] VITALS: RESP 16
[2017-07-31 03:10] VITALS: BP 109/56
[2017-07-31] MEDS ORDERED: HYDR-3535 PO (03:10)
== END 2017-07-31 03:17 | disposition home or self-care (01) ==
LOC: PHED 01:15
DX: R10.9 Unspecified abdominal pain (principal); K50.90 Crohn's disease, unspecified, without complications; K21.9 Gastro-esophageal reflux disease without esophagitis; F17.200 Nicotine dependence, unspecified, uncomplicated; R82.71 Bacteriuria
CPT/HCPCS: 80053; 81001; 83690; 84703; 85025; 87086; 96374; 96375; 99284; J1170; J1885; J2405

== ENCOUNTER 2017-08-05 18:00 | Emergency (ER) | payer MEDICARE, MEDICAID ==
[~2017-08-05] VITALS: Ht 170.2 cm; Wt 71.0 kg
[~2017-08-05 18:00] MED LIST changes: -HYDR-3533 PO; +HYDR-3535 PO
[2017-08-05 18:10] VITALS: BP 140/75; PULSE 88; RESP 16; TEMP 98.2; O2SAT 100
[2017-08-05 18:24] LABS: BLOOD, URINE NEG (NEG); GLUCOSE,URINE NEG (NEG); KETONE, URINE NEG (NEG); NITRITE,URINE NEG (NEG); PH, URINE 5.5 (5.0-8.5)
[2017-08-05 18:27] LABS: URINE COLOR YELLOW (YELLW/STRAW)
[2017-08-05 18:28] LABS: BACTERIA, URINE MOD /hpf; COMMENT (UR) CULTURE INDICATED; CULTURE IF INDICATED CULTURE INDICATED; SQUAMOUS EPITHELIAL CELL URINE 0-5 /hpf (0-5)
[2017-08-05 20:35] VITALS: BP 120/79; PULSE 82; RESP 14; O2SAT 99
--- NOTE | 2017-08-05 20:37 | PD ---
HPI Chief Complaint: Abdominal Pain Time Seen by Provider: 20:24 Travel History International Travel<30 days: No Contact w/Intl Traveler<30days: No Traveled to known affect area: No History of Present Illness HPI 42yo F with PMH of crohns disease here with c/o left lower abdominal pain after Dr. Barillas pressed on it. Pt has chronic abdominal pain and has been seen here multiple times for it, last time was 07/31/17. She was referred to surgery and saw Dr. Barillas today and said that she started having pain after his exam. He is going to refer her to the [facility]. Pt also ran out of her hydrocodone 10mg this morning and took her last dose this morning. Mild nausea. Pt with colostomy bag and having normal brown stool. Denies any fever, chest pain, sob , dysuria, increased urinary frequency, hematuria, focal weakness or numbness. PFSH Past Medical History Hx Anticoagulant Therapy: No Arthritis: Yes (knees) Asthma: No Blood Disorders: No Heart Rhythm Problems: No Cancer: No Cardiovascular Problems: No High Cholesterol: No Chest Pain: No Congestive Heart Failure: No COPD: No Cerebrovascular Accident: No Diabetes: No Diminished Hearing: No Endocrine: No Gastrointestinal Disorders: Yes (CROHN'S DISEASE) GERD: Yes Genitourinary: No Hiatal Hernia: No Immune Disorder: No Kidney Stones: Yes Musculoskeletal: No Neurologic: No Psychiatric: No Reproductive: Yes (ovarian cysts; total hysterctomy) Respiratory: No Immunizations Current: No Migraines: Yes Pancreatitis: Yes Renal Failure: No Seizures: No Sleep Apnea: No Thyroid Disease: No Ulcer: Yes ?: Not : 0 Past Surgical History Abdominal Surgery: Yes (OSTOMY) AICD: No Cardiac Surgery: No Ear Surgery: No Endocrine Surgery: No Eye Surgery: No Gynecologic Surgery: Yes (hysterectomy) Hysterectomy: Yes (FULL) Joint Replacement: No Neurologic Surgery: No Oral Surgery: Yes (root canal) Pacemaker: Yes Thoracic Surgery: Yes (R side lumpectomy) Other Surgery: Yes (31) Social History Alcohol Use: No (RARE) Tobacco Use: Yes (09/30 PPD) Substance Use: No Allergies-Medications (Allergen,Severity, Reaction): Coded Allergies: metronidazole (Unverified Allergy, Severe, Vomiting, 08/05/17) morphine (Unverified Allergy, Severe, Chest pain, 08/05/17) Sulfa (Sulfonamide Antibiotics) (Unverified Allergy, Intermediate, Nausea/ Vomiting, 08/05/17) ciprofloxacin (Unverified Allergy, Intermediate, Nausea/Vomiting, 08/05/17) nitrofurantoin (Unverified Allergy, Intermediate, Nausea/Vomiting, 08/05/17 ) adhesive (Unverified Allergy, Mild, 08/05/17) Paper Tape penicillin G (Unverified Allergy, Mild, Hives, 08/05/17) Reported Meds & Prescriptions Reported Meds & Active Scripts Active Lortab (Hydrocodone-Acetaminophen) 10-325 Mg Tab 1 Tab PO Q6H PRN Reported Nexium (Esomeprazole DR) 20 Mg Capdr 20 Mg PO BID Review of Systems Except as stated in HPI: all other systems reviewed are Neg Physical Exam Narrative GENERAL: 42yo F in mild distress. SKIN: Focused skin assessment warm/dry. HEAD: Atraumatic. Normocephalic. EYES: Pupils equal and round. No scleral icterus. No injection or drainage. ENT: No nasal bleeding or discharge. Mucous membranes pink and moist. NECK: Trachea midline. No JVD. CARDIOVASCULAR: Regular rate and rhythm. No murmur appreciated. RESPIRATORY: No accessory muscle use. Clear to auscultation. Breath sounds equal bilaterally. GASTROINTESTINAL: Abdomen soft, +TTP LLQ. No rebound tenderness or guarding. Colostomy bag with brown stool. MUSCULOSKELETAL: No obvious deformities. No clubbing. No cyanosis. No edema. NEUROLOGICAL: Awake and alert. No obvious cranial nerve deficits. Motor grossly within normal limits. Normal speech. PSYCHIATRIC: Appropriate mood and affect; insight and judgment normal. Data Data Last Documented VS Vital Signs Date Time Temp Pulse Resp B/P (MAP) Pulse Ox O2 Delivery O2 Flow Rate FiO2 08/05/17 20:59 14 08/05/17 20:35 82 120/79 (93) 99 Room Air 08/05/17 18:10 98.2 Orders Orders Urinalysis - C+S If Indicated (08/05/17 18:03) Urine Culture (08/05/17 18:15) Complete Blood Count With Diff (08/05/17 20:33) Comprehensive Metabolic Panel (08/05/17 20:33) Lipase (08/05/17 20:33) Ondansetron Inj (Zofran Inj) (08/05/17 20:45) Acetamin-Hydrocod 325-10 Mg ([place] 10-32 (08/05/17 20:45) Labs Laboratory Tests Test 08/05/17 18:15 08/05/17 20:40 Urine Color YELLOW Urine Turbidity SLIGHT Urine pH 5.5 Urine Specific [place] 1.027 Urine Protein NEG mg/dL Urine Glucose (UA) NEG mg/dL Urine Ketones NEG mg/dL Urine Occult Blood NEG Urine Nitrite NEG Urine Bilirubin NEG Urine Leukocyte Esterase NEG Urine WBC 3-5 /hpf Urine Squamous Epithelial Cells 0-5 /hpf Urine Amorphous Sediment MOD Urine Bacteria MOD /hpf Microscopic Urinalysis Comment CULTURE INDICATED White Blood Count 8.6 TH/MM3 Red Blood Count 4.35 MIL/MM3 Hemoglobin 12.1 GM/DL Hematocrit 36.5 % Mean Corpuscular Volume 83.8 FL Mean Corpuscular Hemoglobin 27.7 PG Mean Corpuscular Hemoglobin Concent 33.1 % Red Cell Distribution Width 15.2 % Platelet Count 408 TH/MM3 Mean Platelet Volume 7.7 FL Neutrophils (%) (Auto) 63.0 % Lymphocytes (%) (Auto) 31.2 % Monocytes (%) (Auto) 3.8 % Eosinophils (%) (Auto) 1.0 % Basophils (%) (Auto) 1.0 % Neutrophils # (Auto) 5.4 TH/MM3 Lymphocytes # (Auto) 2.7 TH/MM3 Monocytes # (Auto) 0.3 TH/MM3 Eosinophils # (Auto) 0.1 TH/MM3 Basophils # (Auto) 0.1 TH/MM3 CBC Comment DIFF FINAL Differential Comment Blood Urea Nitrogen 12 MG/DL Creatinine 0.71 MG/DL Random Glucose 91 MG/DL Total Protein 7.6 GM/DL Albumin 3.6 GM/DL Calcium Level 9.2 MG/DL Alkaline Phosphatase 110 U/L Aspartate Amino Transf (AST/SGOT) 15 U/L Alanine Aminotransferase (ALT/SGPT) 24 U/L Total Bilirubin 0.2 MG/DL Sodium Level 138 MEQ/L Potassium Level 3.9 MEQ/L Chloride Level 106 MEQ/L Carbon Dioxide Level 26.1 MEQ/L Anion Gap 6 MEQ/L Estimat Glomerular Filtration Rate 91 ML/MIN Lipase 292 U/L [facility] Medical Decision Making Medical Screen Exam Complete: Yes Emergency Medical Condition: Yes Differential Diagnosis Chronic pain vs. malingering vs. crohn's disease Narrative Course 42yo F with crohns disease and chronic abdominal pain here with c/o lower abdominal pain after physical exam by surgeon today. Said she ran out of her lortab. I gave her her usual dose of hydrocodone and zofran. Labs reviewed, no leukocytosis. CMP unremarkable. Lipase normal. UA showed moderate bacteria. WBC is 3-5. Pt has no urinary complaints, and last 2 urine cultures has been mixed bienvenido so not treat at this time. Pt showed me that she had CT a/ p on 07/17/17 that showed status post colectomy and right quadrant ileostomy. No evidence of active inflammatory bowel disease, soft tissue masses or lymphadenopathy. Pt has had multiple CT scans and abdomen is benign with normal bowel movement. Do not think additional imaging is needed. Pt insist that she did not get any pain medication from Dr. Barillas, will give a few doses of lortab and pt has to follow up with pain management as outpatient. Pt is well appearing and tolerating PO. Return precautions given. Diagnosis Primary Impression: Abdominal pain Qualified Codes: R10.32 - Left lower quadrant pain Patient Instructions: General Instructions Departure Forms: Tests/Procedures Additional Instructions: Please follow up with [facility] as recommended by Dr. Barillas. Return to the ED if symptoms worsen. Med/Other Pt SpecificInfo: Prescription(s) given Scripts Hydrocodone-Acetaminophen (Lortab) 10-325 Mg Tab 1 TAB PO Q6H Y for PAIN, #7 TAB 0 Refills Prov: CameronCelia 08/05/17 Disposition: 01 DISCHARGE HOME Condition: Stable Celia Cameron DO Aug 05, 2017 20:37
[2017-08-05] MEDS ORDERED: ACETAMINOPHEN/HYDROcodone 325 MG/10 MG TAB PO ONE (20:45)
[2017-08-05] MEDS ORDERED: ONDANSETRON HCL 4 MG/2 ML VIAL IV PUSH ONE (20:45)
[2017-08-05 20:56] LABS: AUTOMATED NEUTROPHIL # 5.4 TH/MM3 (1.8-7.7); BASOPHIL # 0.1 TH/MM3 (0-0.2); EOSINOPHIL # 0.1 TH/MM3 (0-0.4); HEMATOCRIT 36.5 % (35.0-46.0); HEMO FLAGS DIFF FINAL; LYMPH % 31.2 % (9.0-44.0); LYMPHOCYTE # 2.7 TH/MM3 (1.0-4.8); MEAN CELL VOLUME 83.8 FL (80.0-100.0); MEAN CORPUSCULAR HEMOGLOBIN 27.7 PG (27.0-34.0); MEAN CORPUSCULAR HGB CONC 33.1 % (32.0-36.0); MONO % 3.8 % (0.0-8.0); PLATELET COUNT 408 TH/MM3 (150-450); RED BLOOD COUNT 4.35 MIL/MM3 (4.00-5.30); RED CELL DISTRIBUTION WIDTH 15.2 % (11.6-17.2); WHITE BLOOD COUNT 8.6 TH/MM3 (4.0-11.0)
[2017-08-05 21:07] LABS: CHLORIDE 106 MEQ/L (98-107); POTASSIUM 3.9 MEQ/L (3.5-5.1); SODIUM (NA) 138 MEQ/L (136-145)
[2017-08-05 21:11] LABS: ANION GAP 6 MEQ/L (5-15); BICARBONATE 26.1 MEQ/L (21.0-32.0); BLOOD UREA NITROGEN 12 MG/DL (7-18)
[2017-08-05 21:14] LABS: ALT (GPT) 24 U/L (10-53); AST (GOT) 15 U/L (15-37); GLOMERULAR FILTRATION RATE 91 ML/MIN (>89)
[2017-08-05 21:15] LABS: TOTAL BILIRUBIN ADULT 0.2 MG/DL (0.2-1.0)
[2017-08-05 21:17] LABS: ALKALINE PHOSPHATASE 110 U/L (45-117)
[2017-08-05] MEDS ORDERED: HYDR-3535 PO (21:37)
[2017-08-05 21:55] VITALS: BP 96/68; PULSE 78; RESP 14; O2SAT 99
[2017-08-05 22:03] VITALS: RESP 18
== END 2017-08-05 22:18 | disposition home or self-care (01) ==
LOC: PHED 18:00
DX: R10.32 Left lower quadrant pain (principal); K50.90 Crohn's disease, unspecified, without complications; G89.29 Other chronic pain; F17.200 Nicotine dependence, unspecified, uncomplicated; Z93.3 Colostomy status
CPT/HCPCS: 80053; 81001; 83690; 85025; 87086; 96374; 99284; J2405

== ENCOUNTER 2017-09-03 20:46 | Emergency (ER) | payer OTHER ==
[2017-09-03 20:48] VITALS: BP 136/84; PULSE 98; RESP 16; TEMP 97.8; O2SAT 99
[2017-09-03 21:54] LABS: BACTERIA, URINE RARE /hpf; BLOOD, URINE TRACE (NEG); CALCIUM OXALATE CRYSTALS,URINE MOD /hpf; COMMENT (UR) CULT NOT INDICATED; CULTURE IF INDICATED CULT NOT INDICATED; GLUCOSE,URINE NEG (NEG); HYALINE CAST, URINE 4 /lpf (RARE); KETONE, URINE NEG (NEG); MUCUS URINE FEW /lpf (OCC); NITRITE,URINE NEG (NEG); PH, URINE 5.5 (5.0-8.5); SQUAMOUS EPITHELIAL CELL URINE 1 /hpf (0-5); URINE COLOR YELLOW (YELLW/STRAW)
[2017-09-03] MEDS ORDERED: HYDR-3583 PO (22:02)
--- NOTE | 2017-09-03 22:22 | PD ---
HPI Chief Complaint: Abdominal Pain Time Seen by Provider: 22:10 Travel History International Travel<30 days: No Contact w/Intl Traveler<30days: No Traveled to known affect area: No History of Present Illness HPI 42-year-old female complains of abdominal pain. Patient states the pain is sharp pain localized around the epigastric area. Patient denies any pain radiation. Patient states the pain started about 5 hours prior to arrival. Patient states that she has nausea but no vomiting or diarrhea. Patient denies any dysuria or frequency. Patient states that she has history of Crohn's disease. Patient has been to the emergency room several times in the past with same pain. Workup including CT abdomen and pelvis and blood tests were normal. Patient states that she was taking hydrocodone for pain. Patient status post hysterectomy in the past. PFSH Past Medical History Hx Anticoagulant Therapy: No Arthritis: Yes (knees) Asthma: No Blood Disorders: No Heart Rhythm Problems: No Cancer: No Cardiovascular Problems: No High Cholesterol: No Chest Pain: No Congestive Heart Failure: No COPD: No Cerebrovascular Accident: No Diabetes: No Diminished Hearing: No Endocrine: No Gastrointestinal Disorders: Yes (CROHN'S DISEASE) GERD: Yes Genitourinary: No Hiatal Hernia: No Immune Disorder: No Kidney Stones: Yes Musculoskeletal: No Neurologic: No Psychiatric: No Reproductive: Yes (ovarian cysts; total hysterctomy) Respiratory: No Immunizations Current: No Migraines: Yes Pancreatitis: Yes Renal Failure: No Seizures: No Sleep Apnea: No Thyroid Disease: No Ulcer: Yes (MULTIPLE) Tetanus Vaccination: > 5 Years Influenza Vaccination: No ?: Not : 0 Ovarian Cysts: Yes Past Surgical History Abdominal Surgery: Yes (OSTOMY, FULL COLECTOMY, SMALL BOWEL X5) AICD: No Cardiac Surgery: No Ear Surgery: No Endocrine Surgery: No Eye Surgery: No Gynecologic Surgery: Yes (hysterectomy) Hysterectomy: Yes (full 2009) Joint Replacement: No Neurologic Surgery: No Oral Surgery: Yes (root canal) Pacemaker: Yes Thoracic Surgery: Yes (R side lumpectomy) Other Surgery: Yes (RECTAL SURG. X6) Social History Alcohol Use: No (occ) Tobacco Use: Yes (09/30 PPD) Substance Use: No Allergies-Medications (Allergen,Severity, Reaction): Coded Allergies: metronidazole (Unverified Allergy, Severe, Vomiting, 08/05/17) morphine (Unverified Allergy, Severe, Chest pain, 08/05/17) Sulfa (Sulfonamide Antibiotics) (Unverified Allergy, Intermediate, Nausea/ Vomiting, 08/05/17) ciprofloxacin (Unverified Allergy, Intermediate, Nausea/Vomiting, 08/05/17) nitrofurantoin (Unverified Allergy, Intermediate, Nausea/Vomiting, 08/05/17 ) adhesive (Unverified Allergy, Mild, 08/05/17) Paper Tape penicillin G (Unverified Allergy, Mild, Hives, 08/05/17) Reported Meds & Prescriptions Reported Meds & Active Scripts Active Reported Hydrocodone-Acetaminophen 10-325 mg Tab 1 Tab PO Q6H PRN Nexium (Esomeprazole DR) 20 Mg Capdr 20 Mg PO BID Review of Systems General / Constitutional: No: Fever Eyes: No: Visual changes HENT: No: Headaches Cardiovascular: No: Chest Pain or Discomfort Respiratory: No: Shortness of Breath Gastrointestinal: Positive: Nausea, Abdominal Pain Genitourinary: No: Dysuria Musculoskeletal: No: Pain Skin: No Rash Neurologic: No: Weakness Psychiatric: No: Depression Endocrine: No: Polydipsia Hematologic/Lymphatic: No: Easy Bruising Physical Exam Narrative GENERAL: Well-nourished, well-developed patient. SKIN: Focused skin assessment warm/dry. HEAD: Normocephalic. EYES: No scleral icterus. No injection or drainage. NECK: Supple, trachea midline. No JVD or lymphadenopathy. CARDIOVASCULAR: Regular rate and rhythm without murmurs, gallops, or rubs. RESPIRATORY: Breath sounds equal bilaterally. No accessory muscle use. GASTROINTESTINAL: Abdomen soft, nondistended. Patient has mild to moderate tenderness on palpation epigastric and lower abdomen. No rebound tenderness. No mass. MUSCULOSKELETAL: No cyanosis, or edema. BACK: Nontender without obvious deformity. No CVA tenderness. Neurologic exam normal. Data Data Last Documented VS Vital Signs Date Time Temp Pulse Resp B/P (MAP) Pulse Ox O2 Delivery O2 Flow Rate FiO2 09/03/17 20:48 97.8 98 16 136/84 (101) 99 Room Air Orders Orders Comprehensive Metabolic Panel (09/03/17 21:07) Complete Blood Count With Diff (09/03/17 21:07) Urinalysis - C+S If Indicated (09/03/17 21:07) Labs Laboratory Tests Test 09/03/17 21:25 09/03/17 22:12 Urine Color YELLOW Urine Turbidity HAZY Urine pH 5.5 Urine Specific [place] 1.033 Urine Protein 30 mg/dL Urine Glucose (UA) NEG mg/dL Urine Ketones NEG mg/dL Urine Occult Blood TRACE Urine Nitrite NEG Urine Bilirubin NEG Urine Urobilinogen 2.0 MG/DL Urine Leukocyte Esterase SMALL Urine RBC 1 /hpf Urine WBC 4 /hpf Urine Squamous Epithelial Cells 1 /hpf Urine Calcium Oxalate Crystals MOD /hpf Urine Bacteria RARE /hpf Urine Hyaline Casts 4 /lpf Urine Mucus FEW /lpf Microscopic Urinalysis Comment CULT NOT INDICATED White Blood Count 12.0 TH/MM3 Red Blood Count 4.34 MIL/MM3 Hemoglobin 12.5 GM/DL Hematocrit 37.1 % Mean Corpuscular Volume 85.4 FL Mean Corpuscular Hemoglobin 28.7 PG Mean Corpuscular Hemoglobin Concent 33.6 % Red Cell Distribution Width 16.2 % Platelet Count 380 TH/MM3 Mean Platelet Volume 8.1 FL Neutrophils (%) (Auto) 66.8 % Lymphocytes (%) (Auto) 27.5 % Monocytes (%) (Auto) 4.0 % Eosinophils (%) (Auto) 0.9 % Basophils (%) (Auto) 0.8 % Neutrophils # (Auto) 8.0 TH/MM3 Lymphocytes # (Auto) 3.3 TH/MM3 Monocytes # (Auto) 0.5 TH/MM3 Eosinophils # (Auto) 0.1 TH/MM3 Basophils # (Auto) 0.1 TH/MM3 CBC Comment DIFF FINAL Differential Comment Blood Urea Nitrogen 25 MG/DL Creatinine 0.97 MG/DL Random Glucose 94 MG/DL Total Protein 8.3 GM/DL Albumin 4.0 GM/DL Calcium Level 9.2 MG/DL Alkaline Phosphatase 147 U/L Aspartate Amino Transf (AST/SGOT) 23 U/L Alanine Aminotransferase (ALT/SGPT) 39 U/L Total Bilirubin 0.2 MG/DL Sodium Level 137 MEQ/L Potassium Level 3.8 MEQ/L Chloride Level 107 MEQ/L Carbon Dioxide Level 23.7 MEQ/L Anion Gap 6 MEQ/L Estimat Glomerular Filtration Rate 63 ML/MIN [facility] Medical Decision Making Medical Screen Exam Complete: Yes Emergency Medical Condition: Yes Interpretation(s) 23:23 PM. CBC WBC 12.0. Normal differential. CMP within normal limit. BUN 25. Alkaline phosphatase 147. UA negative WBC, rare bacteria. Differential Diagnosis Differential diagnosis including gastritis, PUD, pancreatitis, cholecystitis, colitis, UTI, pyelonephritis, acute exacerbation Crohn's disease. Narrative Course 42-year-old female with recurrent abdominal pain. Patient states that she has history of Crohn's disease. Diagnosis Primary Impression: Gastritis Qualified Codes: K29.70 - Gastritis, unspecified, without bleeding Patient Instructions: General Instructions Additional Instructions: Take medications as directed. Follow-up with personal physician and GI specialist. Return if worse. Med/Other Pt SpecificInfo: Prescription(s) given Scripts Dicyclomine (Bentyl) 10 Mg Cap 10 MG PO TID Y for Bowel Management, #30 CAP 0 Refills Prov: René Hughes MD 09/03/17 Sucralfate (Carafate) 1 Gram Tab 1 GM PO QID for Ulcer Prevention, #120 TAB 0 Refills On empty stomach Prov: René Hughes MD 09/03/17 Disposition: 01 DISCHARGE HOME Condition: Stable René Hughes MD Sep 03, 2017 22:22
[2017-09-03 22:35] LABS: BASOPHIL # 0.1 TH/MM3 (0-0.2); BASOPHIL % 0.8 % (0.0-2.0); EOSINOPHIL # 0.1 TH/MM3 (0-0.4); EOSINOPHIL % 0.9 % (0.0-4.0); HEMATOCRIT 37.1 % (35.0-46.0); HEMO FLAGS DIFF FINAL; LYMPH % 27.5 % (9.0-44.0); LYMPHOCYTE # 3.3 TH/MM3 (1.0-4.8); MEAN CELL VOLUME 85.4 FL (80.0-100.0); MEAN CORPUSCULAR HEMOGLOBIN 28.7 PG (27.0-34.0); MEAN CORPUSCULAR HGB CONC 33.6 % (32.0-36.0); NEUT % 66.8 % (16.0-70.0); PLATELET COUNT 380 TH/MM3 (150-450); RED BLOOD COUNT 4.34 MIL/MM3 (4.00-5.30); RED CELL DISTRIBUTION WIDTH 16.2 % (11.6-17.2)
[2017-09-03 23:02] LABS: ANION GAP 6 MEQ/L (5-15); BICARBONATE 23.7 MEQ/L (21.0-32.0); BLOOD UREA NITROGEN 25 MG/DL (7-18); CHLORIDE 107 MEQ/L (98-107); GLOMERULAR FILTRATION RATE 63 ML/MIN (>89); POTASSIUM 3.8 MEQ/L (3.5-5.1); SODIUM (NA) 137 MEQ/L (136-145)
[2017-09-03 23:03] LABS: ALT (GPT) 39 U/L (10-53); AST (GOT) 23 U/L (15-37)
[2017-09-03 23:05] LABS: ALKALINE PHOSPHATASE 147 U/L (45-117); TOTAL BILIRUBIN ADULT 0.2 MG/DL (0.2-1.0)
[2017-09-03] MEDS ORDERED: CARA1TAB6 PO (23:36)
[2017-09-03] MEDS ORDERED: DICY10 PO (23:36)
== END 2017-09-03 23:47 | disposition home or self-care (01) ==
LOC: NEPD 20:46
DX: K29.70 Gastritis, unspecified, without bleeding (principal); K50.90 Crohn's disease, unspecified, without complications; K21.9 Gastro-esophageal reflux disease without esophagitis; F17.200 Nicotine dependence, unspecified, uncomplicated
CPT/HCPCS: 80053; 81001; 85025; 99284

== ENCOUNTER 2017-10-01 21:15 | Emergency (ER) | payer OTHER, MEDICARE ==
[~2017-10-01] VITALS: Ht 172.7 cm; Wt 72.8 kg
[~2017-10-01 21:15] MED LIST changes: +CARA1TAB6 PO; +DICY10 PO; -HYDR-3535 PO; +HYDR-3583 PO
[2017-10-01 21:20] VITALS: BP 129/85; PULSE 83; RESP 16; TEMP 97.7; O2SAT 100
[2017-10-01] MEDS ORDERED: SODIUM CHLOR 0.9% 1000 ML INJ 1,000 ML IV SCH (21:28)
[2017-10-01] MEDS ORDERED: SODIUM CHLORIDE 0.9% FLUSH 10 ML FLUSH IV FLUSH PRN (21:30)
[2017-10-01] MEDS ORDERED: ONDANSETRON HCL 4 MG/2 ML VIAL IVP ONE (21:30)
[2017-10-01] MEDS ORDERED: HYDROmorphone HCL PF 2 MG/ML VIAL IV PUSH ONE ×2 (21:30→23:30)
--- NOTE | 2017-10-01 21:33 | PD ---
HPI Chief Complaint: Abdominal Pain Time Seen by Provider: 21:23 Travel History International Travel<30 days: No Contact w/Intl Traveler<30days: No Traveled to known affect area: No History of Present Illness HPI 42-year-old female with reported history of Crohn's disease status post total colectomy with permanent ileostomy with chronic left lower quadrant abdominal pain reportedly for the last 18 years, here for evaluation of worsening left lower quadrant pain over the last 2 hours. She is followed by material handling technician Dr. Harris and presents with a report with capsule endoscopy that was done last month that shows no signs of active Crohn's in the small intestine, there is an active gastric ulcer, prolonged gastric emptying of capsule, appearance of foreign material towards the mid to distal ileum of the small bowel of unclear origin with the capsule making its way through the entire small intestine. According to the plan the material handling technician is going to discussed this with a surgeon, and recommends continued PPI and avoidance of NSAIDs at this time. Patient reports normal output from her ileostomy. No fevers or chills. No vomiting. Left lower quadrant pain is described as sharp , constant, severe, worse with movements. PFSH Past Medical History Hx Anticoagulant Therapy: No Arthritis: Yes (knees) Asthma: No Blood Disorders: No Heart Rhythm Problems: No Cancer: No Cardiovascular Problems: No High Cholesterol: No Chest Pain: No Congestive Heart Failure: No COPD: No Cerebrovascular Accident: No Diabetes: No Diminished Hearing: No Endocrine: No Gastrointestinal Disorders: Yes (CROHN'S DISEASE) GERD: Yes Genitourinary: No Hiatal Hernia: No Immune Disorder: No Kidney Stones: Yes Musculoskeletal: No Neurologic: No Psychiatric: No Reproductive: Yes (ovarian cysts; total hysterctomy) Respiratory: No Immunizations Current: No Migraines: Yes Pancreatitis: Yes Renal Failure: No Seizures: No Sleep Apnea: No Thyroid Disease: No Ulcer: Yes (MULTIPLE) ?: Not : 0 Ovarian Cysts: Yes Past Surgical History Abdominal Surgery: Yes (OSTOMY, FULL COLECTOMY, SMALL BOWEL X5) AICD: No Cardiac Surgery: No Ear Surgery: No Endocrine Surgery: No Eye Surgery: No Gynecologic Surgery: Yes (hysterectomy) Hysterectomy: Yes Joint Replacement: No Neurologic Surgery: No Oral Surgery: Yes (root canal) Pacemaker: Yes Thoracic Surgery: Yes (R side lumpectomy) Other Surgery: Yes (RECTAL SURG. X6) Social History Alcohol Use: No (occ) Tobacco Use: Yes (1 09/30 PPD) Substance Use: No Allergies-Medications (Allergen,Severity, Reaction): Coded Allergies: metronidazole (Unverified Allergy, Severe, Vomiting, 10/01/17) morphine (Unverified Allergy, Severe, Chest pain, 10/01/17) Sulfa (Sulfonamide Antibiotics) (Unverified Allergy, Intermediate, Nausea/ Vomiting, 10/01/17) ciprofloxacin (Unverified Allergy, Intermediate, Nausea/Vomiting, 10/01/17) nitrofurantoin (Unverified Allergy, Intermediate, Nausea/Vomiting, 10/01/17) adhesive (Unverified Allergy, Mild, 10/01/17) Paper Tape penicillin G (Unverified Allergy, Mild, Hives, 10/01/17) Reported Meds & Prescriptions Reported Meds & Active Scripts Active Reported Nexium (Esomeprazole DR) 20 Mg Capdr 20 Mg PO BID Review of Systems Except as stated in HPI: all other systems reviewed are Neg Physical Exam Narrative GENERAL: Well-developed, well-nourished, no apparent distress. SKIN: Focused skin assessment warm/dry. HEAD: Atraumatic. Normocephalic. EYES: Pupils equal and round. No scleral icterus. No injection or drainage. ENT: No nasal bleeding or discharge. Mucous membranes pink and moist. CARDIOVASCULAR: Regular rate and rhythm. RESPIRATORY: No accessory muscle use. Clear to auscultation. Breath sounds equal bilaterally. GASTROINTESTINAL: Abdomen soft, nondistended. Mild left lower quadrant tenderness without peritoneal signs. Right mid ileostomy bag with brown stool output. MUSCULOSKELETAL: No obvious deformities. No clubbing. No cyanosis. No edema. NEUROLOGICAL: Awake and alert. No obvious cranial nerve deficits. Motor grossly within normal limits. Normal speech. PSYCHIATRIC: Appropriate mood and affect; insight and judgment normal. Data Data Last Documented VS Vital Signs Date Time Temp Pulse Resp B/P (MAP) Pulse Ox O2 Delivery O2 Flow Rate FiO2 10/01/17 23:10 75 16 107/62 (77) 99 Room Air 10/01/17 21:20 97.7 Orders Orders Complete Blood Count With Diff (10/01/17 21:28) Comprehensive Metabolic Panel (10/01/17 21:28) Lipase (10/01/17 21:28) Prothrombin Time / Inr (Pt) (10/01/17 21:28) Act Partial Throm Time (Ptt) (10/01/17 21:28) Urinalysis - C+S If Indicated (10/01/17 21:28) Ct Abd/Pel W Iv Contrast(Rout) (10/01/17 21:28) Iv Access Insert/Monitor (10/01/17 21:28) Ecg Monitoring (10/01/17 21:28) Oximetry (10/01/17 21:28) Ondansetron Inj (Zofran Inj) (10/01/17 21:30) Sodium Chlor 0.9% 1000 Ml Inj (Ns 1000 M (10/01/17 21:28) Sodium Chloride 0.9% Flush (Ns Flush) (10/01/17 21:30) Hydromorphone Pf Inj (Dilaudid Pf Inj) (10/01/17 21:30) Al-Mag Hy-Si 40-40-4 Mg/Ml Liq (Mag-Al P (10/01/17 21:45) Lidocaine 2% Viscous (Xylocaine 2% Visco (10/01/17 21:45) Sucralfate Liq (Carafate Liq) (10/01/17 21:45) Urine Culture (10/01/17 21:46) Ceftriaxone Inj (Rocephin Inj) (10/01/17 22:45) Iohexol 350 Inj (Omnipaque 350 Inj) (10/01/17 22:47) Labs Laboratory Tests Test 10/01/17 21:46 White Blood Count 7.9 TH/MM3 Red Blood Count 4.19 MIL/MM3 Hemoglobin 11.5 GM/DL Hematocrit 36.0 % Mean Corpuscular Volume 85.9 FL Mean Corpuscular Hemoglobin 27.5 PG Mean Corpuscular Hemoglobin Concent 32.0 % Red Cell Distribution Width 15.1 % Platelet Count 387 TH/MM3 Mean Platelet Volume 7.9 FL Neutrophils (%) (Auto) 54.4 % Lymphocytes (%) (Auto) 38.6 % Monocytes (%) (Auto) 5.1 % Eosinophils (%) (Auto) 1.2 % Basophils (%) (Auto) 0.7 % Neutrophils # (Auto) 4.2 TH/MM3 Lymphocytes # (Auto) 3.1 TH/MM3 Monocytes # (Auto) 0.4 TH/MM3 Eosinophils # (Auto) 0.1 TH/MM3 Basophils # (Auto) 0.1 TH/MM3 CBC Comment DIFF FINAL Differential Comment Prothrombin Time 10.2 SEC Prothromb Time International Ratio 1.0 RATIO Activated Partial Thromboplast Time 25.0 SEC Urine Color YELLOW Urine Turbidity HAZY Urine pH 5.5 Urine Specific [place] 1.025 Urine Protein NEG mg/dL Urine Glucose (UA) NEG mg/dL Urine Ketones NEG mg/dL Urine Occult Blood NEG Urine Nitrite NEG Urine Bilirubin NEG Urine Leukocyte Esterase TRACE Urine RBC 0-3 /hpf Urine WBC 9-14 /hpf Urine Squamous Epithelial Cells 0-5 /hpf Urine Bacteria MANY /hpf Microscopic Urinalysis Comment CULTURE INDICATED Blood Urea Nitrogen 20 MG/DL Creatinine 0.83 MG/DL Random Glucose 81 MG/DL Total Protein 7.3 GM/DL Albumin 3.5 GM/DL Calcium Level 8.9 MG/DL Alkaline Phosphatase 129 U/L Aspartate Amino Transf (AST/SGOT) 20 U/L Alanine Aminotransferase (ALT/SGPT) 27 U/L Total Bilirubin 0.3 MG/DL Sodium Level 142 MEQ/L Potassium Level 3.8 MEQ/L Chloride Level 109 MEQ/L Carbon Dioxide Level 26.2 MEQ/L Anion Gap 7 MEQ/L Estimat Glomerular Filtration Rate 76 ML/MIN Lipase 361 U/L MDM Medical Decision Making Medical Screen Exam Complete: Yes Emergency Medical Condition: Yes Differential Diagnosis Chronic abdominal pain, bowel obstruction, acute intra-abdominal/surgical process, UTI, cystitis, gastritis, peptic ulcer disease Narrative Course Vital signs show heart rate 83, blood pressure 129/85, pulse ox 100% on room air , oral temp of 97.7F. CBC: WBC 7.9, hemoglobin 11.5, hematocrit 36, platelets 387, neutrophils 54%. CMP is unremarkable. Lipase is 361. UA: Hazy, trace leukocyte esterase, 9-14 wbc's, many bacteria. CT abdomen pelvis: Probable postsurgical changes surrounding the rectum, however inflammatory process is difficult to exclude. Slight splenomegaly. Case discussed with material handling technician Dr. Welsh who is covering for the patient 's material handling technician Dr. Harris. This appears to be a chronic process and there is no acute intervention necessary at this time. He recommends trying Elavil 25 mg at night as well as Bentyl. Patient can follow-up with Dr. Harris this week. The patient was given 1 mg of IV Dilaudid and on reassessment she continues to complain of pain. There are no peritoneal signs on exam. There is normal output in her ileostomy. She is afebrile. I doubt that this is an infectious process. She was given a dose of IV Rocephin for her UA findings and will be started on Ceftin for this. I will give her another dose of pain medication here in the emergency department and I have advised that she follow-up as an outpatient with her material handling technician as well as general surgeon this week. She was informed on when to return to the emergency department. She verbalizes understanding and agreement with plan. Diagnosis Primary Impression: Chronic abdominal pain Additional Impression: UTI (urinary tract infection) Qualified Codes: N39.0 - Urinary tract infection, site not specified Referrals: Tae Harris MD 3 days Jann Barillas MD 3 days Primary Care Physician 3 days Additional Instructions: Follow-up with your primary care physician this week. Follow-up with your material handling technician Dr. Harris this week. Follow-up with your general surgeon Dr. Barillas this week. Return to the emergency department for worsening symptoms or any other concerns. Scripts Oxycodone-Acetaminophen (Percocet) 5-325 mg Tab 1 TAB PO Q6H Y for PAIN, #10 TAB 0 Refills Prov: Haseeb Rodriguez MD 10/01/17 Dicyclomine (Bentyl) 10 Mg Cap 10 MG PO TID Y for Bowel Management for 10 Days, CAP 0 Refills Prov: Haseeb Rodriguez MD 10/01/17 Amitriptyline (Amitriptyline) 25 Mg Tab 25 MG PO HS for 7 Days, TAB Prov: Haseeb Rodriguez MD 10/01/17 Cefuroxime (Ceftin) 250 Mg Tab 500 MG PO BID for 7 Days, #28 TAB Prov: Haseeb Rodriguez MD 10/01/17 Disposition: 01 DISCHARGE HOME Condition: Stable Haseeb Rodriguez MD Oct 01, 2017 21:33
[2017-10-01] MEDS ORDERED: ALUMINUM/MAGNESIUM/SIMETH 30 ML CUP PO ONE (21:45)
[2017-10-01] MEDS ORDERED: SUCRALFATE 1 GM/10 ML CUP PO ONE (21:45)
[2017-10-01] MEDS ORDERED: LIDOCAINE VISCOUS 2% SOLN 15 ML UDC PO ONE (21:45)
[2017-10-01 21:59] LABS: AUTOMATED NEUTROPHIL # 4.2 TH/MM3 (1.8-7.7); BASOPHIL # 0.1 TH/MM3 (0-0.2); BASOPHIL % 0.7 % (0.0-2.0); BILIRUBIN, URINE NEG (NEG); BLOOD, URINE NEG (NEG); EOSINOPHIL # 0.1 TH/MM3 (0-0.4); EOSINOPHIL % 1.2 % (0.0-4.0); GLUCOSE,URINE NEG (NEG); HEMOGLOBIN 11.5 GM/DL (11.6-15.3); KETONE, URINE NEG (NEG); LYMPH % 38.6 % (9.0-44.0); LYMPHOCYTE # 3.1 TH/MM3 (1.0-4.8); MEAN CELL VOLUME 85.9 FL (80.0-100.0); MEAN CORPUSCULAR HEMOGLOBIN 27.5 PG (27.0-34.0); MEAN PLATELET VOLUME 7.9 FL (7.0-11.0); MONO % 5.1 % (0.0-8.0); MONOCYTE # 0.4 TH/MM3 (0-0.9); NEUT % 54.4 % (16.0-70.0); NITRITE,URINE NEG (NEG); PH, URINE 5.5 (5.0-8.5); PLATELET COUNT 387 TH/MM3 (150-450); RED BLOOD COUNT 4.19 MIL/MM3 (4.00-5.30); RED CELL DISTRIBUTION WIDTH 15.1 % (11.6-17.2); URINE LEUKOCYTE ESTERASE TRACE (NEG); WHITE BLOOD COUNT 7.9 TH/MM3 (4.0-11.0)
[2017-10-01 22:05] LABS: BACTERIA, URINE MANY /hpf; RBC, URINE 0-3 /hpf (0-3); SQUAMOUS EPITHELIAL CELL URINE 0-5 /hpf (0-5); URINE COLOR YELLOW (YELLW/STRAW)
[2017-10-01 22:07] LABS: CHLORIDE 109 MEQ/L (98-107); SODIUM (NA) 142 MEQ/L (136-145)
[2017-10-01 22:12] LABS: ALBUMIN 3.5 GM/DL (3.4-5.0); BICARBONATE 26.2 MEQ/L (21.0-32.0); BLOOD UREA NITROGEN 20 MG/DL (7-18); CALCIUM 8.9 MG/DL (8.5-10.1); GLUCOSE,RANDOM 81 MG/DL (74-106); LIPASE 361 U/L (73-393)
[2017-10-01 22:14] LABS: PROTHROMBIN TIME - PATIENT 10.2 SEC (9.8-11.6)
[2017-10-01 22:15] VITALS: BP 101/76; PULSE 78; RESP 16; O2SAT 99
[2017-10-01 22:15] LABS: ALT (GPT) 27 U/L (10-53); AST (GOT) 20 U/L (15-37); CREATININE 0.83 MG/DL (0.50-1.00); GLOMERULAR FILTRATION RATE 76 ML/MIN (>89)
[2017-10-01 22:16] LABS: TOTAL BILIRUBIN ADULT 0.3 MG/DL (0.2-1.0)
[2017-10-01 22:17] VITALS: O2SAT 98
[2017-10-01 22:17] LABS: ALKALINE PHOSPHATASE 129 U/L (45-117); TOTAL PROTEIN 7.3 GM/DL (6.4-8.2)
[2017-10-01] MEDS ORDERED: cefTRIAXone INJ 1,000 MG in SODIUM CHLORIDE 0.9% INJ 100 ML IV ONE (22:45)
[2017-10-01] MEDS ORDERED: IOHEXOL 350 MG/ML 10 ML VIAL (for RAD DIAG) IVCONTRAST ONE (22:47)
--- NOTE | 2017-10-01 22:57 | RADRPT ---
EXAM DATE/TIME: 10/01/2017 22:33 [facility] COMPARISON: CT ABDOMEN & PELVIS W CONTRAST, February 07, 2017, 13:13. INDICATIONS : Abdominal pain. IV CONTRAST: 100 cc Omnipaque 350 (iohexol) IV ORAL CONTRAST: No oral contrast ingested. RADIATION DOSE: 9.09 CTDIvol (mGy) MEDICAL HISTORY : Crohn's disease. Pancreatitis. SURGICAL HISTORY : Hysterectomy. Colectomy. Ileostomy. ENCOUNTER: Initial ACUITY: 1 day PAIN SCALE: 7/10 LOCATION: abdomen TECHNIQUE: Volumetric scanning of the abdomen and pelvis was performed. Using automated exposure control and ad justment of the mA and/or kV according to patient size, radiation dose was kept as low as reasonably achievable to obtain optimal diagnostic quality images. DICOM format image data is available electro nically for review and comparison. FINDINGS: CT Abdomen: The pancreas, kidneys, adrenals are unremarkable. The spleen is enlarged measuring 13 cm in craniocaudal dimension without focal lesions for technique.There is no evidence for any appreciabl e pathological adenopathy, free fluid, or bowel obstruction. The liver measures 21 cm in craniocauda l dimension without focal lesions. CT pelvis: There is no evidence for mass, abscess formation, or any significant adenopathy within the pelvis. Ostomy site is seen on the right and there is slight haziness to the fat planes in the pelvi s surrounding the rectum presacral area not significantly changed to be due to postsurgical changes. CONCLUSION: Probable postsurgical changes surrounding the rectum, however inflammatory process is difficult to exclude. Slight splenomegaly. Arian Villanueva MD on October 01, 2017 at 22:52 Board Certified Radiologist. This report was verified electronically.
[2017-10-01 23:10] VITALS: BP 107/62; PULSE 75; RESP 16; O2SAT 99
[2017-10-01] MEDS ORDERED: PERC5TAB12 PO (23:29)
[2017-10-01] MEDS ORDERED: CEFU1TAB18 PO (23:29)
[2017-10-01] MEDS ORDERED: DICY10 PO (23:29)
[2017-10-01] MEDS ORDERED: AMIT25TA9 PO (23:29)
[2017-10-02 00:06] VITALS: BP 119/64; PULSE 78; RESP 16; O2SAT 98
[2017-10-02 01:02] VITALS: BP 115/60
== END 2017-10-02 01:03 | disposition home or self-care (01) ==
LOC: PHED 21:15
DX: R10.9 Unspecified abdominal pain (principal); G89.29 Other chronic pain; N39.0 Urinary tract infection, site not specified; K50.90 Crohn's disease, unspecified, without complications; K21.9 Gastro-esophageal reflux disease without esophagitis; N83.209 Unspecified ovarian cyst, unspecified side; F17.210 Nicotine dependence, cigarettes, uncomplicated; Z90.49 Acquired absence of other specified parts of digestive tract; Z93.2 Ileostomy status; Z87.442 Personal history of urinary calculi; Z90.710 Acquired absence of both cervix and uterus; Z88.2 Allergy status to sulfonamides; Z88.0 Allergy status to penicillin; Z88.5 Allergy status to narcotic agent
CPT/HCPCS: 74177; 80053; 81001; 83690; 85025; 85610; 85730; 87086; 96361; 96365; 96375; 96376; 99285; J0696; J1170; J2405; J7030; Q9967

== ENCOUNTER 2017-10-25 20:10 | Emergency (ER) | payer OTHER ==
[~2017-10-25] VITALS: Ht 170.2 cm; Wt 70.0 kg
[~2017-10-25 20:10] MED LIST changes: +AMIT25TA9 PO; -CARA1TAB6 PO; +CEFU1TAB18 PO; -HYDR-3583 PO; +PERC5TAB12 PO
[2017-10-25 20:15] VITALS: BP 135/73; PULSE 102; RESP 14; TEMP 98; O2SAT 98
[2017-10-25 21:16] VITALS: BP 117/56; PULSE 92; RESP 18; TEMP 98; O2SAT 97
[2017-10-25 21:46] VITALS: BP 107/75; PULSE 75; RESP 18
--- NOTE | 2017-10-25 22:08 | PD ---
HPI Chief Complaint: Pain: Acute or Chronic Time Seen by Provider: 22:04 Travel History International Travel<30 days: No Contact w/Intl Traveler<30days: No Traveled to known affect area: No History of Present Illness HPI 42-year-old female came to the emergency room for muscle spasms she's been feeling on both upper extremities and tingling around her lips. Patient has history of multiple abdominal surgery and extensive bowel resection. She currently has an ileostomy. She frequently suffers from electrolyte abnormality and dehydration. Patient says that she called her surgeon Dr. Barillas earlier today and was asked to come to the emergency room to get blood work and electrolyte check. Patient is awake and answering questions appropriately and does not appear to be in any twitching or pain. Vital signs are stable. She says that she has a repeat surgery that is due in first week of October. Her stoma output has not been much different than her usual. She had deep the bag once today. No blood in the bag. PFSH Past Medical History Narrative Medical List of her past medical, surgical, social and family history is reviewed from the nurse's note. Hx Anticoagulant Therapy: No Arthritis: Yes (knees) Asthma: No Blood Disorders: No Heart Rhythm Problems: No Cancer: No Cardiovascular Problems: No High Cholesterol: No Chest Pain: No Congestive Heart Failure: No COPD: No Cerebrovascular Accident: No Diabetes: No Diminished Hearing: No Endocrine: No Gastrointestinal Disorders: Yes (CROHN'S DISEASE) GERD: Yes Genitourinary: No Headaches: No Hiatal Hernia: No Hypertension: No Immune Disorder: No Implanted Vascular Access Dvce: No Kidney Stones: Yes Musculoskeletal: No Neurologic: No Psychiatric: No Reproductive: Yes (ovarian cysts; total hysterctomy) Respiratory: No Immunizations Current: No Migraines: Yes Pancreatitis: Yes Renal Failure: No Seizures: No Sleep Apnea: No Thyroid Disease: No Ulcer: Yes (MULTIPLE) Influenza Vaccination: No ?: Not : 0 Ovarian Cysts: Yes Past Surgical History Abdominal Surgery: Yes (OSTOMY, FULL COLECTOMY, SMALL BOWEL X5) AICD: No Cardiac Surgery: No Ear Surgery: No Endocrine Surgery: No Eye Surgery: No Gynecologic Surgery: Yes (hysterectomy) Hysterectomy: Yes (2009) Joint Replacement: No Neurologic Surgery: No Oral Surgery: Yes (root canal) Pacemaker: Yes Thoracic Surgery: Yes (R side lumpectomy) Other Surgery: Yes (RECTAL SURG. X6) Social History Alcohol Use: No (occ) Tobacco Use: Yes (2 PPD) Substance Use: No Allergies-Medications (Allergen,Severity, Reaction): Coded Allergies: metronidazole (Verified Allergy, Severe, Vomiting, 10/25/17) Sulfa (Sulfonamide Antibiotics) (Verified Allergy, Intermediate, Nausea/ Vomiting, 10/25/17) ciprofloxacin (Verified Allergy, Intermediate, Nausea/Vomiting, 10/25/17) nitrofurantoin (Verified Allergy, Intermediate, Nausea/Vomiting, 10/25/17) adhesive (Verified Allergy, Mild, 10/25/17) Paper Tape penicillin G (Verified Allergy, Mild, Hives, 10/25/17) Comments List of her allergies reviewed from the nursing note. Reported Meds & Prescriptions Reported Meds & Active Scripts Active Percocet (Oxycodone-Acetaminophen) 5-325 mg Tab 1 Tab PO Q6H PRN Bentyl (Dicyclomine HCl) 10 Mg Cap 10 Mg PO TID PRN 10 Days Amitriptyline (Amitriptyline HCl) 25 Mg Tab 25 Mg PO HS 7 Days Ceftin (Cefuroxime Axetil) 250 Mg Tab 500 Mg PO BID 7 Days Reported Nexium (Esomeprazole DR) 20 Mg Capdr 20 Mg PO BID Narrative Medication List of her home medications reviewed from the nursing note. Review of Systems Except as stated in HPI: all other systems reviewed are Neg Physical Exam Narrative GENERAL: Awake, alert, anxious, mild distress SKIN: Focused skin assessment warm/dry. HEAD: Atraumatic. Normocephalic. EYES: Pupils equal and round. No scleral icterus. No injection or drainage. ENT: No nasal bleeding or discharge. Mucous membranes pink and moist. NECK: Trachea midline. No JVD. CARDIOVASCULAR: Regular rate and rhythm. No murmur appreciated. RESPIRATORY: No accessory muscle use. Clear to auscultation. Breath sounds equal bilaterally. GASTROINTESTINAL: Abdomen soft, non-tender, nondistended. Hepatic and splenic margins not palpable. MUSCULOSKELETAL: No obvious deformities. No clubbing. No cyanosis. No edema. NEUROLOGICAL: Awake and alert. No obvious cranial nerve deficits. Motor grossly within normal limits. Normal speech. PSYCHIATRIC: Appropriate mood and affect; insight and judgment normal. Data Data Last Documented VS Vital Signs Date Time Temp Pulse Resp B/P (MAP) Pulse Ox O2 Delivery O2 Flow Rate FiO2 10/25/17 23:31 10/25/17 21:46 75 18 10/25/17 21:16 98.0 97 Room Air Orders Orders Complete Blood Count With Diff (10/25/17 22:11) Basic Metabolic Panel (Bmp) (10/25/17 22:11) Magnesium (Mg) (10/25/17 22:11) Sodium Chlor 0.9% 1000 Ml Inj (Ns 1000 M (10/25/17 22:15) Ed Discharge Order (10/25/17 23:10) Labs Laboratory Tests Test 10/25/17 22:23 White Blood Count 13.5 TH/MM3 Red Blood Count 4.36 MIL/MM3 Hemoglobin 12.1 GM/DL Hematocrit 37.0 % Mean Corpuscular Volume 84.8 FL Mean Corpuscular Hemoglobin 27.8 PG Mean Corpuscular Hemoglobin Concent 32.7 % Red Cell Distribution Width 14.7 % Platelet Count 442 TH/MM3 Mean Platelet Volume 8.2 FL Neutrophils (%) (Auto) 67.3 % Lymphocytes (%) (Auto) 26.0 % Monocytes (%) (Auto) 3.1 % Eosinophils (%) (Auto) 1.1 % Basophils (%) (Auto) 2.5 % Neutrophils # (Auto) 9.2 TH/MM3 Lymphocytes # (Auto) 3.5 TH/MM3 Monocytes # (Auto) 0.4 TH/MM3 Eosinophils # (Auto) 0.1 TH/MM3 Basophils # (Auto) 0.3 TH/MM3 CBC Comment DIFF FINAL Differential Comment Blood Urea Nitrogen 28 MG/DL Creatinine 0.90 MG/DL Random Glucose 97 MG/DL Calcium Level 9.0 MG/DL Magnesium Level 2.3 MG/DL Sodium Level 138 MEQ/L Potassium Level 3.5 MEQ/L Chloride Level 107 MEQ/L Carbon Dioxide Level 22.9 MEQ/L Anion Gap 8 MEQ/L Estimat Glomerular Filtration Rate 69 ML/MIN [facility] Medical Decision Making Medical Screen Exam Complete: Yes Emergency Medical Condition: Yes Medical Record Reviewed: Yes Differential Diagnosis Electrolyte Abnormality, dehydration Narrative Course 10:43 PM CBC is back. Awaiting for the chemistry. Patient is getting 1 L of IV fluid bolus. 11:02 PM the test results are back and within normal limits. Under the circumstances I'm comfortable discharging her home. She needs to call her surgeon after she goes home tomorrow and discuss further plans. Patient does have some leukocytosis. There was a CAT scan done 3 weeks ago which showed questionable inflammatory changes. I'm comfortable discharging the patient home and I have recommended that she should call Dr. Barillas this point and discuss further plans with him. Procedures EKG Prior to Arrival: No Diagnosis Primary Impression: Mild dehydration Referrals: Primary Care Physician Additional Instructions: Please call your surgeon for follow-up with him as per your appointment. Return to ER if condition worsens or any other new concerns. Drink lots of fluid Med/Other Pt SpecificInfo: No Change to Meds Disposition: 01 DISCHARGE HOME Condition: Stable Rafi Fried MD Oct 25, 2017 22:08
[2017-10-25] MEDS ORDERED: SODIUM CHLOR 0.9% 1000 ML INJ 1,000 ML IV ONE (22:15)
[2017-10-25 22:30] LABS: AUTOMATED NEUTROPHIL # 9.2 TH/MM3 (1.8-7.7); BASOPHIL # 0.3 TH/MM3 (0-0.2); BASOPHIL % 2.5 % (0.0-2.0); EOSINOPHIL # 0.1 TH/MM3 (0-0.4); EOSINOPHIL % 1.1 % (0.0-4.0); HEMOGLOBIN 12.1 GM/DL (11.6-15.3); LYMPHOCYTE # 3.5 TH/MM3 (1.0-4.8); MEAN CELL VOLUME 84.8 FL (80.0-100.0); MEAN CORPUSCULAR HEMOGLOBIN 27.8 PG (27.0-34.0); MEAN CORPUSCULAR HGB CONC 32.7 % (32.0-36.0); MEAN PLATELET VOLUME 8.2 FL (7.0-11.0); MONO % 3.1 % (0.0-8.0); MONOCYTE # 0.4 TH/MM3 (0-0.9); NEUT % 67.3 % (16.0-70.0); PLATELET COUNT 442 TH/MM3 (150-450); RED BLOOD COUNT 4.36 MIL/MM3 (4.00-5.30); RED CELL DISTRIBUTION WIDTH 14.7 % (11.6-17.2); WHITE BLOOD COUNT 13.5 TH/MM3 (4.0-11.0)
[2017-10-25 23:00] LABS: BICARBONATE 22.9 MEQ/L (21.0-32.0); MAGNESIUM 2.3 MG/DL (1.5-2.5)
[2017-10-25 23:04] LABS: CREATININE 0.9 MG/DL (0.50-1.00)
== END 2017-10-25 23:31 | disposition home or self-care (01) ==
LOC: PHED 20:10
DX: E86.0 Dehydration (principal); K50.90 Crohn's disease, unspecified, without complications; K85.90 Acute pancreatitis without necrosis or infection, unspecified; K21.9 Gastro-esophageal reflux disease without esophagitis; F17.210 Nicotine dependence, cigarettes, uncomplicated
CPT/HCPCS: 80048; 83735; 85025; 96360; 99284; J7030

== ENCOUNTER 2017-11-23 12:44 | Emergency (ER) | payer OTHER ==
[~2017-11-23] VITALS: Ht 171.4 cm; Wt 66.5 kg
[2017-11-23 12:49] VITALS: BP 111/64; PULSE 85; RESP 18; TEMP 97.9; O2SAT 99
[2017-11-23] MEDS ORDERED: NORC5TAB PO (13:02)
[2017-11-23] MEDS ORDERED: SODIUM CHLOR 0.9% 1000 ML INJ 1,000 ML IV ONE ×2 (13:15→15:15)
[2017-11-23] MEDS ORDERED: MORPHINE SULFATE 4 MG/ML INJ IV ONE (13:30)
[2017-11-23] MEDS ORDERED: ONDANSETRON HCL 4 MG/2 ML VIAL IV PUSH ONE (13:30)
[2017-11-23 13:45] LABS: BILIRUBIN, URINE NEG (NEG); BLOOD, URINE MOD (NEG); GLUCOSE,URINE NEG (NEG); KETONE, URINE NEG (NEG); NITRITE,URINE NEG (NEG); URINE LEUKOCYTE ESTERASE SMALL (NEG)
[2017-11-23 13:52] LABS: CALCIUM 9.9 MG/DL (8.5-10.1)
[2017-11-23 13:53] LABS: BICARBONATE 25.5 MEQ/L (21.0-32.0); URINE COLOR YELLOW (YELLW/STRAW)
[2017-11-23 13:54] LABS: BACTERIA, URINE FEW /hpf; SQUAMOUS EPITHELIAL CELL URINE > 8 /hpf (0-5)
[2017-11-23 13:56] LABS: CREATININE 0.69 MG/DL (0.50-1.00)
[2017-11-23 14:00] LABS: AUTOMATED NEUTROPHIL # 9.2 TH/MM3 (1.8-7.7); BASOPHIL # 0.1 TH/MM3 (0-0.2); EOSINOPHIL # 0.2 TH/MM3 (0-0.4); EOSINOPHIL % 1.6 % (0.0-4.0); HEMATOCRIT 38.4 % (35.0-46.0); HEMOGLOBIN 12.4 GM/DL (11.6-15.3); LYMPH % 19.6 % (9.0-44.0); LYMPHOCYTE # 2.4 TH/MM3 (1.0-4.8); MEAN CELL VOLUME 84.6 FL (80.0-100.0); MEAN CORPUSCULAR HEMOGLOBIN 27.4 PG (27.0-34.0); MEAN CORPUSCULAR HGB CONC 32.4 % (32.0-36.0); MEAN PLATELET VOLUME 8.7 FL (7.0-11.0); MONO % 2.5 % (0.0-8.0); MONOCYTE # 0.3 TH/MM3 (0-0.9); NEUT % 75.3 % (16.0-70.0); PLATELET COUNT 575 TH/MM3 (150-450); RED BLOOD COUNT 4.54 MIL/MM3 (4.00-5.30); RED CELL DISTRIBUTION WIDTH 14.6 % (11.6-17.2); WHITE BLOOD COUNT 12.2 TH/MM3 (4.0-11.0)
[2017-11-23] MEDS ORDERED: IOHEXOL 350 MG/ML 10 ML VIAL (for RAD DIAG) IVCONTRAST ONE (14:20)
--- NOTE | 2017-11-23 14:33 | RADRPT ---
EXAM DATE/TIME: 11/23/2017 14:14 [place] COMPARISON: CT ABDOMEN & PELVIS W CONTRAST, October 01, 2017, 22:33. INDICATIONS : Recent abdominal surgery one week ago to remove mesh. Diffuse abdominal pain. IV CONTRAST: 95 cc Omnipaque 350 (iohexol) IV ORAL CONTRAST: No oral contrast ingested. RADIATION DOSE: 7.57 CTDIvol (mGy) MEDICAL HISTORY : Pancreatitis. Crohns disease. SURGICAL HISTORY : Hysterectomy.Ileostomy. ENCOUNTER: Initial ACUITY: 1 week PAIN SCALE: 7/10 LOCATION: Bilateral abdomen TECHNIQUE: Volumetric scanning of the abdomen and pelvis was performed. Using automated exposure control and ad justment of the mA and/or kV according to patient size, radiation dose was kept as low as reasonably achievable to obtain optimal diagnostic quality images. DICOM format image data is available electro nically for review and comparison. FINDINGS: LOWER LUNGS: The visualized lower lungs are clear. LIVER: Homogeneous density without lesion. There is no dilation of the biliary tree. No calcified gallston es. The liver appears to be enlarged but stable. SPLEEN: Normal size without lesion. PANCREAS: Within normal limits. KIDNEYS: Normal in size and shape. There is no mass, stone or hydronephrosis. ADRENAL GLANDS: Within normal limits. VASCULAR: There is no aortic aneurysm. BOWEL/MESENTERY: The bowel gas pattern is within normal limits. There is no abnormal dilatation of large or small alesha l. There is a small amount of free fluid deep in the pelvis. No definite inflammatory changes are see n. There are stable postsurgical changes at the level of the rectum. No loculated fluid collections a re demonstrated. There is a right lower quadrant ileostomy which appears to be intact.. ABDOMINAL WALL: Postsurgical changes. RETROPERITONEUM: There is no lymphadenopathy. BLADDER: No wall thickening or mass. REPRODUCTIVE: Within normal limits. INGUINAL: There is no lymphadenopathy or hernia. MUSCULOSKELETAL: Within normal limits for patient age. No significant changes compared to the prior exam. CONCLUSION: 1. There is a small amount of free fluid deep in the pelvis. 2. Stable mild hepatomegaly. 3. No other new or significant changes are demonstrated compared to the prior examination. Ghassan Brady MD on November 23, 2017 at 14:26 Board Certified Radiologist. This report was verified electronically.
[2017-11-23] MEDS ORDERED: KETAMINE HCL 500 MG/10 ML VIAL IV PUSH ONE (14:45)
[2017-11-23] MEDS ORDERED: KETAMINE HCL 500 MG/5 ML VIAL IV PUSH ONE (14:45)
--- NOTE | 2017-11-23 15:04 | PD ---
HPI . Poor oral intake Chief Complaint: General Weakness Time Seen by Provider: 13:07 Travel History International Travel<30 days: No Contact w/Intl Traveler<30days: No Traveled to known affect area: No History of Present Illness HPI This patient presents with chief complaint of poor oral intake. She had surgery for lysis of adhesions on November 14. She states that her intake has been poor since that time. She is concerned about dehydration. She reports decreased urinary output. She has not been running a fever and she has not been vomiting. She has an ileostomy and states that her stool output has been normal. She is complaining with crampy abdominal pain which she rates 7/10. There have been no modifying factors. Symptoms have been ongoing, continuous and progressively worsening PFSH Past Medical History Hx Anticoagulant Therapy: No Arthritis: Yes (knees) Asthma: No Blood Disorders: No Heart Rhythm Problems: No Cancer: No Cardiovascular Problems: No High Cholesterol: No Chest Pain: No Congestive Heart Failure: No COPD: No Cerebrovascular Accident: No Diabetes: No Diminished Hearing: No Endocrine: No Gastrointestinal Disorders: Yes (CROHN'S DISEASE) GERD: Yes Genitourinary: No Headaches: No Hiatal Hernia: No Hypertension: No Immune Disorder: No Implanted Vascular Access Dvce: No Kidney Stones: Yes Musculoskeletal: No Neurologic: No Psychiatric: No Reproductive: Yes (ovarian cysts; total hysterctomy) Respiratory: No Immunizations Current: No Migraines: Yes Pancreatitis: Yes Renal Failure: No Seizures: No Sleep Apnea: No Thyroid Disease: No Ulcer: Yes (MULTIPLE) Tetanus Vaccination: > 5 Years Influenza Vaccination: No ?: Not : 0 Ovarian Cysts: Yes Past Surgical History Abdominal Surgery: Yes (OSTOMY, FULL COLECTOMY, SMALL BOWEL X5) AICD: No Cardiac Surgery: No Ear Surgery: No Endocrine Surgery: No Eye Surgery: No Gynecologic Surgery: Yes (hysterectomy) Hysterectomy: Yes (2009) Joint Replacement: No Neurologic Surgery: No Oral Surgery: Yes (root canal) Pacemaker: Yes Thoracic Surgery: Yes (R side lumpectomy) Other Surgery: Yes (RECTAL SURG. X6, MESH AND SKIN ADHESONS REMOVED ABD) Social History Alcohol Use: No (occ) Tobacco Use: Yes (1/2 PPD) Substance Use: No Allergies-Medications (Allergen,Severity, Reaction): Coded Allergies: metronidazole (Verified Allergy, Severe, Vomiting, 11/23/17) Sulfa (Sulfonamide Antibiotics) (Verified Allergy, Intermediate, Nausea/ Vomiting, 11/23/17) ciprofloxacin (Verified Allergy, Intermediate, Nausea/Vomiting, 11/23/17) nitrofurantoin (Verified Allergy, Intermediate, Nausea/Vomiting, 11/23/17) adhesive (Verified Allergy, Mild, 11/23/17) Paper Tape penicillin G (Verified Allergy, Mild, Hives, 11/23/17) morphine (Verified Adverse Reaction, Severe, Nausea/Vomiting, 11/23/17) RASH Reported Meds & Prescriptions Reported Meds & Active Scripts Active Reported [place] (Hydrocodone-Acetaminophen) 5 Mg-325 Mg Tab 1 Tab PO Q4H PRN Nexium (Esomeprazole DR) 20 Mg Capdr 20 Mg PO BID Review of Systems Except as stated in HPI: all other systems reviewed are Neg General / Constitutional: No: Fever, Chills Gastrointestinal: Positive: Abdominal Pain, Loss of Appetite, No: Nausea, Vomiting, Diarrhea Genitourinary: Positive: Decreased Urinary Output Physical Exam Narrative GENERAL: Patient is awake and alert and in no acute distress. SKIN: warm/dry. Normal color and turgor. HEAD: Normocephalic. Atraumatic. EYES: Pupils equal and round. No scleral icterus. No injection or drainage. ENT: No nasal bleeding or discharge. Mucous membranes pink and moist. NECK: Trachea midline. Full range of motion without pain.. CARDIOVASCULAR: Regular rate and rhythm. Heart sounds are normal. RESPIRATORY: No accessory muscle use. Clear to auscultation. Breath sounds equal bilaterally. GASTROINTESTINAL: Ashlie are in place. The wound has no signs of infection such as drainage, surrounding redness or warmth. She complains of diffuse abdominal tenderness. Bowel sounds are present. She has an ileostomy bag in her right lower quadrant which is draining brown thin stool. MUSCULOSKELETAL: No obvious deformities. NEUROLOGICAL: Awake and alert. No obvious cranial nerve deficits. Motor grossly within normal limits. Normal speech. PSYCHIATRIC: Appropriate mood and affect; insight and judgment normal. Data Data Last Documented VS Vital Signs Date Time Temp Pulse Resp B/P (MAP) Pulse Ox O2 Delivery O2 Flow Rate FiO2 11/23/17 15:07 71 16 98/52 (67) 99 Room Air 11/23/17 12:49 97.9 Orders Orders Sodium Chlor 0.9% 1000 Ml Inj (Ns 1000 M (11/23/17 13:15) Basic Metabolic Panel (Bmp) (11/23/17 13:15) Complete Blood Count With Diff (11/23/17 13:15) Urinalysis - C+S If Indicated (11/23/17 13:15) Ondansetron Inj (Zofran Inj) (11/23/17 13:30) Morphine Inj (Morphine Inj) (11/23/17 13:30) Ct Abd/Pel W Iv Contrast(Rout) (11/23/17 13:21) Urine Culture (11/23/17 13:30) Iohexol 350 Inj (Omnipaque 350 Inj) (11/23/17 14:20) Ketamine Inj (Ketalar Inj) (11/23/17 14:45) Ketamine Inj (Ketalar Inj) (11/23/17 14:45) Sodium Chlor 0.9% 1000 Ml Inj (Ns 1000 M (11/23/17 15:15) Labs Laboratory Tests Test 11/23/17 13:30 White Blood Count 12.2 TH/MM3 Red Blood Count 4.54 MIL/MM3 Hemoglobin 12.4 GM/DL Hematocrit 38.4 % Mean Corpuscular Volume 84.6 FL Mean Corpuscular Hemoglobin 27.4 PG Mean Corpuscular Hemoglobin Concent 32.4 % Red Cell Distribution Width 14.6 % Platelet Count 575 TH/MM3 Mean Platelet Volume 8.7 FL Neutrophils (%) (Auto) 75.3 % Lymphocytes (%) (Auto) 19.6 % Monocytes (%) (Auto) 2.5 % Eosinophils (%) (Auto) 1.6 % Basophils (%) (Auto) 1.0 % Neutrophils # (Auto) 9.2 TH/MM3 Lymphocytes # (Auto) 2.4 TH/MM3 Monocytes # (Auto) 0.3 TH/MM3 Eosinophils # (Auto) 0.2 TH/MM3 Basophils # (Auto) 0.1 TH/MM3 CBC Comment DIFF FINAL Differential Comment Urine Collection Type CLEAN CATCH Urine Color YELLOW Urine Turbidity SLIGHT Urine pH 6.0 Urine Specific [place] 1.032 Urine Protein 30 mg/dL Urine Glucose (UA) NEG mg/dL Urine Ketones NEG mg/dL Urine Occult Blood MOD Urine Nitrite NEG Urine Bilirubin NEG Urine Leukocyte Esterase SMALL Urine RBC 25-49 /hpf Urine WBC 25-49 /hpf Urine Squamous Epithelial Cells > 8 /hpf Urine Bacteria FEW /hpf Urine Yeast (Budding) MANY Microscopic Urinalysis Comment CULTURE INDICATED Urine Collection Time 13:30 Blood Urea Nitrogen 20 MG/DL Creatinine 0.69 MG/DL Random Glucose 89 MG/DL Calcium Level 9.9 MG/DL Sodium Level 138 MEQ/L Potassium Level 3.7 MEQ/L Chloride Level 102 MEQ/L Carbon Dioxide Level 25.5 MEQ/L Anion Gap 11 MEQ/L Estimat Glomerular Filtration Rate 94 ML/MIN [facility] Medical Decision Making Medical Screen Exam Complete: Yes Emergency Medical Condition: Yes Medical Record Reviewed: Yes (this patient is seen here frequently with the complaint of abdominal pain sometime she does not receive any medications at all here and sometimes she is given Dilaudid. She reports an adverse reaction to morphine. She has a history of Crohn's disease and is status post colectomy. Her Crohn's disease has reportedly been adequately treated with the colectomy. She is no longer on any medications for Crohn's disease. She receives narcotics regularly from Dr. Kimble in the form of hydrocodone 10 mg tablets. Her last prescription was on 11/05 for 90 tablets.) Differential Diagnosis Differential diagnosis of abdominal pain includes but is not limited to gastritis, pancreatitis, hepatitis, gastroenteritis, gallbladder disease, constipation, urinary retention, UTI, peptic ulcer disease, diverticulitis or appendicitis Narrative Course This patient presents with a chief complaint of poor oral intake and concerns for dehydration. Her secondary complaint is diffuse abdominal pain. She is requesting Dilaudid for her abdominal pain. She reports an allergy to morphine. I am unwilling to give her Dilaudid with the reported allergy to morphine. I have ordered ketamine 0.2 mg/kg IV but the nursing staff informs me that they cannot administer this. She cannot take nonsteroidal anti- inflammatory agents because of her GI issues. CBC & BMP Diagram 11/23/17 13:30 Calcium Level 9.9 She chronically has leukocytosis. UA>>mod blood, small LE, 25-49 RBCs, 25-49 WBCs, few bact, many yeast and >8 sq epi cells--probably contaminated CT: The bowel gas pattern is within normal limits. There is no abnormal dilatation of large or small bowel. There is a small amount of free fluid deep in the pelvis. No definite inflammatory changes are seen. There are stable postsurgical changes at the level of the rectum. No loculated fluid collections are demonstrated. There is a right lower quadrant ileostomy which appears to be intact.. I will give her a second liter fluid and then discharge her to home. Diagnosis Primary Impression: Moderate dehydration Additional Impressions: Abdominal pain Qualified Codes: R10.84 - Generalized abdominal pain History of Crohn's disease Patient Instructions: Dehydration (DC), General Instructions Additional Instructions: Drink lots of fluids even if you do not want to. Follow-up with your doctor tomorrow. Disposition: 01 DISCHARGE HOME Condition: Stable Rosi Navarro MD Nov 23, 2017 15:04
[2017-11-23 15:07] VITALS: BP 98/52; PULSE 71; RESP 16; O2SAT 99
[2017-11-23 16:00] VITALS: BP 116/56
== END 2017-11-23 16:05 | disposition home or self-care (01) ==
LOC: PHED 12:44
DX: E86.0 Dehydration (principal); R10.84 Generalized abdominal pain; R16.0 Hepatomegaly, not elsewhere classified; M19.90 Unspecified osteoarthritis, unspecified site; K21.9 Gastro-esophageal reflux disease without esophagitis; Z87.442 Personal history of urinary calculi; Z87.19 Personal history of other diseases of the digestive system
CPT/HCPCS: 74177; 80048; 81001; 85025; 87086; 87106; 96361; 96374; 99284; J2405; J7030; Q9967

== ENCOUNTER 2017-12-15 22:47 | Emergency (ER) | payer OTHER ==
[~2017-12-15] VITALS: Ht 172.7 cm; Wt 67.1 kg
[~2017-12-15 22:47] MED LIST changes: -AMIT25TA9 PO; -CEFU1TAB18 PO; -DICY10 PO; +NORC5TAB PO; -PERC5TAB12 PO
[2017-12-15 22:56] VITALS: BP 113/66; PULSE 104; RESP 18; TEMP 98.4; O2SAT 95
[2017-12-16] MEDS ORDERED: SODIUM CHLORIDE 0.9% FLUSH 10 ML FLUSH IV FLUSH PRN
--- NOTE | 2017-12-16 00:37 | PD ---
HPI Chief Complaint: Bleeding Time Seen by Provider: 23:58 Travel History International Travel<30 days: No Contact w/Intl Traveler<30days: No Traveled to known affect area: No History of Present Illness HPI 42-year-old female presents to the emergency department for drainage from post surgical wound site with dehiscence. Patient has been under the care of her surgeon Dr. Barillas. Patient is currently prescribed antibiotic, doxycycline, for redness to the abdominal wall. Patient denies any fever chills. Patient noticed that the site that had been partially dehisced at the umbilicus was more open than it had been and she noticed some white material she thought at the site. Patient did not contact her surgeon regarding this. Patient had surgery at [facility], 11/14/17. Patient is scheduled to see her surgeon next week. 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 The patient rates her pain for over 10 intensity. PFSH Past Medical History Narrative Medical Crohn's disease, total colectomy, permanent ileostomy, bowel obstruction, adhesiolysis, GI bleed; tobacco use; nursing notes reviewed Hx Anticoagulant Therapy: No Arthritis: Yes (knees) Asthma: No Blood Disorders: No Heart Rhythm Problems: No Cancer: No Cardiovascular Problems: No High Cholesterol: No Chest Pain: No Congestive Heart Failure: No COPD: No Cerebrovascular Accident: No Diabetes: No Diminished Hearing: No Endocrine: No Gastrointestinal Disorders: Yes (CROHN'S DISEASE) GERD: Yes Genitourinary: No Headaches: No Hiatal Hernia: No Hypertension: No Immune Disorder: No Implanted Vascular Access Dvce: No Kidney Stones: Yes Musculoskeletal: No Neurologic: No Psychiatric: No Reproductive: Yes (ovarian cysts; total hysterctomy) Respiratory: No Immunizations Current: No Migraines: Yes Pancreatitis: Yes Renal Failure: No Seizures: No Sleep Apnea: No Thyroid Disease: No Ulcer: Yes (MULTIPLE) ?: Not : 0 Ovarian Cysts: Yes Past Surgical History Abdominal Surgery: Yes (OSTOMY, FULL COLECTOMY, SMALL BOWEL X5) AICD: No Cardiac Surgery: No Ear Surgery: No Endocrine Surgery: No Eye Surgery: No Gynecologic Surgery: Yes (hysterectomy) Hysterectomy: Yes (2009) Joint Replacement: No Neurologic Surgery: No Oral Surgery: Yes (root canal) Pacemaker: Yes Thoracic Surgery: Yes (R side lumpectomy) Other Surgery: Yes (RECTAL SURG. X6, MESH AND SKIN ADHESONS REMOVED ABD) Social History Alcohol Use: No (occ) Tobacco Use: Yes (1/2 PPD) Substance Use: No Allergies-Medications (Allergen,Severity, Reaction): Coded Allergies: metronidazole (Verified Allergy, Severe, Vomiting, 11/23/17) Sulfa (Sulfonamide Antibiotics) (Verified Allergy, Intermediate, Nausea/ Vomiting, 11/23/17) ciprofloxacin (Verified Allergy, Intermediate, Nausea/Vomiting, 11/23/17) nitrofurantoin (Verified Allergy, Intermediate, Nausea/Vomiting, 11/23/17) adhesive (Verified Allergy, Mild, 11/23/17) Paper Tape penicillin G (Verified Allergy, Mild, Hives, 11/23/17) morphine (Verified Adverse Reaction, Severe, Nausea/Vomiting, 11/23/17) RASH Reported Meds & Prescriptions Reported Meds & Active Scripts Active Reported [place] (Hydrocodone-Acetaminophen) 5 Mg-325 Mg Tab 1 Tab PO Q4H PRN Nexium (Esomeprazole DR) 20 Mg Capdr 20 Mg PO BID Review of Systems Except as stated in HPI: all other systems reviewed are Neg General / Constitutional: No: Fever, Chills HENT: No: Congestion Cardiovascular: No: Chest Pain or Discomfort Respiratory: No: Shortness of Breath Gastrointestinal: Positive: Abdominal Pain (Abdominal wall pain and fullness in the left lower quadrant and right lower quadrant) Genitourinary: No: Dysuria Musculoskeletal: No: Myalgias, Arthralgias Skin: Positive Other (Midline abdominal incision dehiscence with seropurulent drainage) Neurologic: No: Weakness Psychiatric: Positive: Anxiety Hematologic/Lymphatic: No: Lymph Node Enlargement Physical Exam Narrative GENERAL: Well-developed well-nourished female appears anxious in no respiratory distress SKIN: Warm and dry. HEAD: Normocephalic. EYES: No scleral icterus. No injection or drainage. NECK: Supple, trachea midline. No JVD or lymphadenopathy. CARDIOVASCULAR: Regular rate and rhythm without murmurs, gallops, or rubs. RESPIRATORY: Breath sounds equal bilaterally. No accessory muscle use. GASTROINTESTINAL: Abdomen soft, mild abdominal wall erythema mild tenderness to direct palpation midline incision with seropurulent drainage from the postop incision site dehiscence at the umbilicus, nondistended. MUSCULOSKELETAL: No cyanosis, or edema. BACK: Nontender without obvious deformity. No CVA tenderness. Data Data Last Documented VS Vital Signs Date Time Temp Pulse Resp B/P (MAP) Pulse Ox O2 Delivery O2 Flow Rate FiO2 12/16/17 03:18 78 16 95/63 (74) 100 Room Air 12/15/17 22:56 98.4 Orders Orders Basic Metabolic Panel (Bmp) (12/15/17 23:58) Complete Blood Count With Diff (12/15/17 23:58) Lactic Acid (12/15/17 23:58) Ct Abd/Pel W Iv Contrast(Rout) (12/15/17 23:58) Iv Access Insert/Monitor (12/15/17 23:58) Ecg Monitoring (12/15/17 23:58) Oximetry (12/15/17 23:58) Sodium Chloride 0.9% Flush (Ns Flush) (12/16/17 00:00) Wound Culture And Gram Stain (12/15/17 23:58) Urinalysis - C+S If Indicated (12/15/17 23:58) Sodium Chlor 0.9% 1000 Ml Inj (Ns 1000 M (12/16/17 02:00) Iohexol 350 Inj (Omnipaque 350 Inj) (12/16/17 02:04) Sodium Chlor 0.9% 1000 Ml Inj (Ns 1000 M (12/16/17 03:00) Ed Discharge Order (12/16/17 03:37) Labs Laboratory Tests Test 12/16/17 00:15 White Blood Count 11.0 TH/MM3 Red Blood Count 4.08 MIL/MM3 Hemoglobin 11.4 GM/DL Hematocrit 34.0 % Mean Corpuscular Volume 83.3 FL Mean Corpuscular Hemoglobin 27.9 PG Mean Corpuscular Hemoglobin Concent 33.5 % Red Cell Distribution Width 14.7 % Platelet Count 302 TH/MM3 Mean Platelet Volume 8.1 FL Neutrophils (%) (Auto) 63.6 % Lymphocytes (%) (Auto) 27.4 % Monocytes (%) (Auto) 4.4 % Eosinophils (%) (Auto) 2.8 % Basophils (%) (Auto) 1.8 % Neutrophils # (Auto) 7.0 TH/MM3 Lymphocytes # (Auto) 3.0 TH/MM3 Monocytes # (Auto) 0.5 TH/MM3 Eosinophils # (Auto) 0.3 TH/MM3 Basophils # (Auto) 0.2 TH/MM3 CBC Comment DIFF FINAL Differential Comment Blood Urea Nitrogen 22 MG/DL Creatinine 1.10 MG/DL Random Glucose 72 MG/DL Calcium Level 8.7 MG/DL Sodium Level 138 MEQ/L Potassium Level 3.8 MEQ/L Chloride Level 108 MEQ/L Carbon Dioxide Level 22.2 MEQ/L Anion Gap 8 MEQ/L Estimat Glomerular Filtration Rate 55 ML/MIN Lactic Acid Level 0.7 mmol/L MDM Medical Decision Making Medical Screen Exam Complete: Yes Emergency Medical Condition: Yes Medical Record Reviewed: Yes Interpretation(s) lactic acid: 0.7, not elevated Last Impressions Abdomen/Pelvis CT 12/15/17 7066 Signed Impressions: Service Date/Time: Saturday, December 16, 2017 01:44 - CONCLUSION: 1. Overall, the appearance of the right lower quadrant ostomy is stable from prior. There is slight increased protrusion of bowel beyond the skin surface, with no evidence of small bowel dilation. 2. No residual free fluid seen. 3. Nonobstructing 3 mm calcified right renal stone stable from prior. Armand Khan MD CBC & BMP Diagram 12/16/17 00:15 Calcium Level 8.7 Vital Signs Date Time Temp Pulse Resp B/P (MAP) Pulse Ox O2 Delivery O2 Flow Rate FiO2 12/16/17 01:17 78 16 98/59 (72) 100 Room Air 12/15/17 22:56 98.4 104 18 113/66 (82) 95 Differential Diagnosis Wound dehiscence, wound infection, intra-abdominal abscess, abdominal wall cellulitis Narrative Course IV access obtained specimens collected and sent for resulting imaging study ordered Patient administered IV fluids CBC is automated differential total white cell count is in normal range and lactic acid is not elevated CT abdomen and pelvis reveals no acute intra-abdominal process patient's abdominal wall is consistent with postsurgical changes; this is discussed with on-call general surgeon Dr. Ludwig covering for patient's surgeon Dr. Barillas Plan to administer patient's oral antibiotic but patient reports she has his antibiotic at home wants to take her antibiotic at home and does not want take antibiotic here in the emergency department. Sterile dressing applied to periumbilical wound dehiscence. Physician Communication Physician Communication call placed to gen surgery --Dr Barillas --> Dr Ludwig 8:30 am in office Diagnosis Primary Impression: Postoperative wound dehiscence Qualified Codes: T81.31XA - Disruption of external operation (surgical) wound , not elsewhere classified, initial encounter Referrals: Jann Barillas MD 1 day follow up 8:[address] Ludwig's recommendation --call office to schedule appointment Patient Instructions: General Instructions Additional Instructions: Follow-up with your general surgeon call office in a.m. to schedule follow-up appointment 830 Return to the emergency department for any concerns or change in condition Take as tolerated acetaminophen/Tylenol for fever 100.4F or greater Complete course of antibiotic as prescribed by her surgeon Keep wound site clean and dry Med/Other Pt SpecificInfo: No Change to Meds Disposition: 01 DISCHARGE HOME Condition: Stable Gillian Rose MD Dec 16, 2017 00:37
[2017-12-16 00:40] LABS: BASOPHIL # 0.2 TH/MM3 (0-0.2); BASOPHIL % 1.8 % (0.0-2.0); EOSINOPHIL # 0.3 TH/MM3 (0-0.4); EOSINOPHIL % 2.8 % (0.0-4.0); HEMOGLOBIN 11.4 GM/DL (11.6-15.3); LYMPH % 27.4 % (9.0-44.0); MEAN CELL VOLUME 83.3 FL (80.0-100.0); MEAN CORPUSCULAR HEMOGLOBIN 27.9 PG (27.0-34.0); MEAN CORPUSCULAR HGB CONC 33.5 % (32.0-36.0); MEAN PLATELET VOLUME 8.1 FL (7.0-11.0); MONO % 4.4 % (0.0-8.0); MONOCYTE # 0.5 TH/MM3 (0-0.9); NEUT % 63.6 % (16.0-70.0); PLATELET COUNT 302 TH/MM3 (150-450); RED BLOOD COUNT 4.08 MIL/MM3 (4.00-5.30); RED CELL DISTRIBUTION WIDTH 14.7 % (11.6-17.2)
[2017-12-16 01:17] VITALS: BP 98/59; PULSE 78; RESP 16; O2SAT 100
[2017-12-16 01:20] LABS: BICARBONATE 22.2 MEQ/L (21.0-32.0); CALCIUM 8.7 MG/DL (8.5-10.1)
[2017-12-16 01:24] LABS: CREATININE 1.1 MG/DL (0.50-1.00)
[2017-12-16] MEDS ORDERED: SODIUM CHLOR 0.9% 1000 ML INJ 1,000 ML IV ONE ×2 (02:00→03:00)
[2017-12-16] MEDS ORDERED: IOHEXOL 350 MG/ML 10 ML VIAL (for RAD DIAG) IVCONTRAST ONE ×2 (02:04→22:48)
--- NOTE | 2017-12-16 02:20 | RADRPT ---
EXAM DATE/TIME: 12/16/2017 01:44 [place] COMPARISON: CT ABDOMEN & PELVIS W CONTRAST, November 23, 2017, 14:14. INDICATIONS : Abdominal pain. IV CONTRAST: 100 cc Omnipaque 350 (iohexol) IV ORAL CONTRAST: No oral contrast ingested. RADIATION DOSE: 8.73 CTDIvol (mGy) MEDICAL HISTORY : Crohn's disease. Pancreatitis. Gastroesophageal reflux disease. SURGICAL HISTORY : Total colectomy. Ostomy. ENCOUNTER: Initial ACUITY: 1 day PAIN SCALE: 6/10 LOCATION: abdomen. TECHNIQUE: Volumetric scanning of the abdomen and pelvis was performed. Using automated exposure control and ad justment of the mA and/or kV according to patient size, radiation dose was kept as low as reasonably achievable to obtain optimal diagnostic quality images. DICOM format image data is available electro nically for review and comparison. FINDINGS: Examination was performed to evaluate changed configuration to the right lower quadrant ostomy site. The overall appearance to the ostomy is very similar to prior examination 11/23/17. Some of the alesha l does protrude beyond the skin 1.9 cm. Stable configuration to the defect in the musculature. No d ilated loops of small or large bowel. The liver, gallbladder, spleen, pancreas, kidneys, aorta, and adrenal glands are intact. Nonobstruct ing 3 mm calcified stone mid pole right kidney is unchanged from prior. no evidence of free fluid. Urinary bladder margins are smooth. The inguinal region is intact. CONCLUSION: 1. Overall, the appearance of the right lower quadrant ostomy is stable from prior. There is slight increased protrusion of bowel beyond the skin surface, with no evidence of small bowel dilation. 2. No residual free fluid seen. 3. Nonobstructing 3 mm calcified right renal stone stable from prior. Armand Khan MD on December 16, 2017 at 2:14 Board Certified Radiologist. This report was verified electronically.
[2017-12-16 03:18] VITALS: BP 95/63; PULSE 78; RESP 16; O2SAT 100
[2017-12-16 03:53] VITALS: BP 97/55
== END 2017-12-16 04:14 | disposition home or self-care (01) ==
LOC: PHED 22:47
DX: T81.31XA Disruption of external operation (surgical) wound, not elsewhere classified, initial encounter (principal); N20.0 Calculus of kidney; K21.9 Gastro-esophageal reflux disease without esophagitis; F17.200 Nicotine dependence, unspecified, uncomplicated
CPT/HCPCS: 74177; 80048; 83605; 85025; 87070; 87077; 87186; 96360; 96361; 99284; J7030; Q9967

== ENCOUNTER 2018-05-13 23:51 | Observation (INO) ==
[2018-05-14] MEDS ORDERED: Sod Chloride 0.9% Inj 1,000 ML IV.SIG ONE (00:07)
[2018-05-14] MEDS ORDERED: HYDROmorphone PF Inj 0.5 MG/0.5 ML Syringe IV.PUSH ONE (00:11)
--- NOTE | 2018-05-14 00:11 | ED ---
HPI General Chief Complaint: Abdominal Pain Stated Complaint: stoma pain/redness/swelling Source: patient Mode of arrival: ambulatory Limitations: no limitations History of Present Illness HPI narrative: 43-year-old female patient with history of Crohn's disease status post colectomy, ileostomy, adhesions, multiple bowel obstructions in the past, presents to the ER today because she states that tonight a few hours ago she started having severe pain and firmness in the ileostomy site in the right lower quadrant. She states is currently an 8 out of 10. She denies any vomiting, fevers, or other symptoms. Related Data Home Medications Medication Instructions Recorded Confirmed citalopram 10 mg PO DAILY 05/14/18 05/14/18 esomeprazole magnesium [Nexium] 20 mg PO BIDAC 05/14/18 05/14/18 hydrocodone-acetaminophen 1 tab PO Q6H PRN 05/14/18 05/14/18 trazodone 50 mg PO HS 05/14/18 05/14/18 Allergies Allergy/AdvReac Type Severity Reaction Status Date / Time metronidazole Allergy Severe Vomiting Verified 05/14/18 02:05 ciprofloxacin Allergy Intermediate Nausea/Vomi Verified 05/14/18 02:05 ting nitrofurantoin Allergy Intermediate Nausea/Vomi Verified 05/14/18 02:05 ting Sulfa (Sulfonamide Allergy Intermediate Nausea/Vomi Verified 05/14/18 02:05 Antibiotics) ting adhesive Allergy Mild Rash Verified 05/14/18 02:05 penicillin G Allergy Mild Hives Verified 05/14/18 02:05 morphine AdvReac Severe Nausea/Vomi Verified 05/14/18 02:05 ting Review of Systems ROS: all other systems reviewed are negative PMFSH History History Provided By: Patient Medical History Medical History History of chronic pain (Acute) History of small bowel obstruction (Acute) Hx of Crohn's disease (Acute) Hx of hysterectomy (Acute) Hx of iron deficiency anemia (Acute) Surgical History Surgical History Hx of colectomy (Acute) Hx of lumpectomy (Acute) Hx of resection of small bowel (Acute) Social History Social History Substance History: No History of Abuse Smoking Status: Current every day smoker Tobacco Type: Cigarettes How Often Do You Have a Drink Containing Alcohol: Never Recent Travel in [facility] within the Last 8 Weeks: No Recent Out of Country Travel within the Last 8 Weeks: No Exam Narrative Exam Narrative: GENERAL: Well-developed young female patient currently in moderate distress. Awake and oriented 3. SKIN: Focused skin assessment warm/dry. HEAD: Atraumatic. Normocephalic. EYES: Pupils equal and round. No scleral icterus. No injection or drainage. ENT: No nasal bleeding or discharge. Mucous membranes pink and moist. NECK: Trachea midline. No JVD. CARDIOVASCULAR: Regular rate and rhythm. No murmur appreciated. RESPIRATORY: No accessory muscle use. Clear to auscultation. Breath sounds equal bilaterally. GASTROINTESTINAL: Abdomen soft, Right-sided ileostomy site with firmness and tenderness as well as erythema below the colostomy site, nondistended. Hepatic and splenic margins not palpable. MUSCULOSKELETAL: No obvious deformities. No clubbing. No cyanosis. No edema. NEUROLOGICAL: Awake and alert. No obvious cranial nerve deficits. Motor grossly within normal limits. Normal speech. PSYCHIATRIC: Appropriate mood and affect; insight and judgment normal. Procedures Rectal Disimpaction Time Out Performed: No Indication: fecal impaction (Of the ileostomy.) Procedural Sedation: No Sedation/Analgesia: opioids and benzodiazepines (Ativan 1 mg) Technique: manual disimpaction with gloved finger Patient Tolerated Procedure: well and no complications Additional Comments: I feel loose stool, no signs of impacted hard stools. Course Hospital Course: Considering patient's complaint, CAT scan was ordered for further evaluation. Lab work shows significant leukocytosis. CAT scan shows possible obstruction at the ostomy site. No other acute issues were identified. Case was discussed with Dr. Bobo who states that he would like me to digitally disimpact the patient at the ostomy site by placing my finger within the ostomy and try to clear some of the impacting stool from that area. In addition, he has recommended a stool softener of some kind, Senokot or Colace is okay according to him. He states that he would like the patient to be medically admitted with consult to surgery. Case was then discussed with Viri who is covering for Dr. Powell of hospitalists service for admission. Initial Documented Vital Signs Temperature 98.4 F 05/13/18 23:55 Pulse Rate 108 H 05/13/18 23:55 Respiratory Rate 18 05/13/18 23:55 Blood Pressure 121/57 L 05/13/18 23:55 Pulse Oximetry 98 05/13/18 23:55 Last Documented Vital Signs Temperature 98.4 F 05/13/18 23:55 Pulse Rate 108 H 05/13/18 23:55 Respiratory Rate 14 05/14/18 01:30 Blood Pressure 121/57 L 05/13/18 23:55 Pulse Oximetry 98 05/13/18 23:55 Medical Decision Making [facility] Narrative Medical Screen Exam Complete: Yes Emergency Medical Condition: Yes Differential Diagnosis Differential Diagnosis: Bowel obstruction versus abscess formation versus other acute intra-abdominal processes Lab Data Result diagrams: 05/14/18 00:20 05/14/18 00:20 Lab Results 05/14/18 05/14/18 Range/Units 00:20 00:20 CBC w Diff Auto diff final WBC 14.1 H (4.0-11.0) th/mm3 RBC 3.51 L (4.00-5.30) mil/mm3 Hgb 9.8 L (11.6-15.3) gm/dL Hct 29.7 L (35.0-46.0) % MCV 84.6 (80.0-100.0) fL MCH 28.0 (27.0-34.0) pg MCHC 33.1 (32.0-36.0) % RDW 15.5 (11.6-17.2) % Plt Count 382 (150-450) th/mm3 MPV 8.7 (7.0-11.0) fL Neut % (Auto) 72.3 H (16.0-70.0) % Lymph % (Auto) 20.2 (9.0-44.0) % [place] % (Auto) 3.8 (0.0-8.0) % Eos % (Auto) 1.7 (0.0-4.0) % Baso % (Auto) 2.0 (0.0-2.0) % Neut # (Auto) 10.2 H (1.8-7.7) th/mm3 Lymph # (Auto) 2.8 (1.0-4.8) th/mm3 [place] # (Auto) 0.5 (0.0-0.9) th/mm3 Eos # (Auto) 0.2 (0.0-0.4) th/mm3 Baso # (Auto) 0.3 H (0.0-0.2) th/mm3 WBC Differential . Differential Comment . Sodium 136 (136-145) meq/L Potassium 3.8 (3.5-5.1) meq/L Chloride 109 H (98-107) meq/L Carbon Dioxide 21.1 (21.0-32.0) meq/L Anion Gap 6 (5-15) meq/L BUN 26 H (7-18) mg/dL Creatinine 1.20 H (0.50-1.00) mg/dL Estimated GFR 49 L (>89) mL/min Random Glucose 135 H (74-106) mg/dL Calcium 8.3 L (8.5-10.1) mg/dL Total Bilirubin 0.1 L (0.2-1.0) mg/dL AST 17 (15-37) U/L ALT 20 (10-53) U/L Alkaline Phosphatase 106 (45-117) U/L Total Protein 6.8 (6.4-8.2) g/dL Albumin 3.2 L (3.4-5.0) g/dL Lipase 216 (73-393) U/L Imaging Data Radiologist's impression: Abdomen/Pelvis CT 05/14/18 00:07 CONCLUSION: 1. Ileostomy in the right lower quadrant. The bowel immediately proximal to the ostomy site at the skin surface appears distended raising the possibility of some narrowing at the stoma causing some degree of obstruction. The remaining small bowel appears grossly normal. 2. Hepatomegaly. There is a nonspecific small 0.8 cm hypodensity in the medial segment the left lobe of the liver. This likely represent a cyst or hemangioma. Discharge Plan Discharge Disposition Patient Disposition: 30 Still Patient Discharge Condition Condition: Stable Discharge Details Anticipated Discharge Date: 05/14/18 Diagnosis: Small bowel obstruction Physicians Team ED Provider: Renetta Roy Primary Care Provider: Do Deisy Chavarria Attending Provider: Luz Elena Powell Discharge Interventions Interventions: Vital Signs Last Done: 05/13/18 23:55 Status ED Status: Admitted Observation Patient
[2018-05-14 00:39] LABS: Baso # (Auto) 0.3 th/mm3 (0.0-0.2); Eos # (Auto) 0.2 th/mm3 (0.0-0.4); Eos % (Auto) 1.7 % (0.0-4.0); Hematocrit 29.7 % (35.0-46.0); Hemoglobin 9.8 gm/dL (11.6-15.3); Lymph # (Auto) 2.8 th/mm3 (1.0-4.8); Lymph % (Auto) 20.2 % (9.0-44.0); Mean Corpuscular HGB Conc 33.1 % (32.0-36.0); Mean Corpuscular Volume 84.6 fL (80.0-100.0); Mean Platelet Volume 8.7 fL (7.0-11.0); Mono # (Auto) 0.5 th/mm3 (0.0-0.9); Mono % (Auto) 3.8 % (0.0-8.0); Neut # (Auto) 10.2 th/mm3 (1.8-7.7); Neut % (Auto) 72.3 % (16.0-70.0); Platelet Count 382 th/mm3 (150-450); Red Blood Count 3.51 mil/mm3 (4.00-5.30); Red Cell Distribution Width 15.5 % (11.6-17.2); White Blood Count 14.1 th/mm3 (4.0-11.0)
[2018-05-14 00:45] LABS: Chloride 109 meq/L (98-107); Potassium 3.8 meq/L (3.5-5.1); Sodium 136 meq/L (136-145)
[2018-05-14 00:48] LABS: Calcium 8.3 mg/dL (8.5-10.1)
[2018-05-14 00:49] LABS: Albumin 3.2 g/dL (3.4-5.0); Anion Gap 6 meq/L (5-15); Blood Urea Nitrogen 26 mg/dL (7-18); Carbon Dioxide 21.1 meq/L (21.0-32.0); Glucose,Random 135 mg/dL (74-106); Lipase 216 U/L (73-393)
[2018-05-14 00:51] LABS: Alanine Aminotransferase 20 U/L (10-53)
[2018-05-14 00:52] LABS: Aspartate Aminotransferase 17 U/L (15-37); Glomerular Filtration Rate 49 mL/min (>89)
[2018-05-14 00:53] LABS: Total Protein 6.8 g/dL (6.4-8.2)
[2018-05-14 00:54] LABS: Alkaline Phosphatase 106 U/L (45-117)
--- NOTE | 2018-05-14 01:44 | CT ---
EXAM DATE: 05/14/2018 1:29 AM EDT AGE/SEX: 43 years / Female INDICATIONS: Right lower quadrant pain X 6 hours. CLINICAL DATA: This is the patient's initial encounter. Patient reports that signs and symptoms have been present for 1 day and indicates a pain score of 7/10. MEDICAL/SURGICAL HISTORY: Crohn's disease. Anemia. Small bowel obstruction. Hysterectomy. Mul tiple surgeries relating to Crohn's ORAL CONTRAST: No oral contrast ingested. RADIATION DOSE: 8.57 CTDI (mGy) COMPARISON: [facility], CT ABDOMEN & PELVIS W CONTRAST, 12/16/2017. . TECHNIQUE: Multiple contiguous axial images were obtained through the abdomen and pelvis following b olus infusion of 95 ml Omnipaque 350 (iohexol) nonionic water-soluble contrast as a single exam dos e. No oral contrast ingested. Using automated exposure control and adjustment of the mA and/or kV ac cording to patient size, radiation dose was kept as low as reasonably achievable to obtain optimal di agnostic quality images. DICOM format image data is available electronically for review and comparis on. FINDINGS: Lower Lungs: The visualized lower lungs are clear. Liver: The liver appears enlarged. There is a small 0.8 cm hypodensity seen at the medial segment the left lobe liver. The gallbladder is unremarkable. Spleen: Homogeneous density without enlargement. Pancreas: Unremarkable without mass or calcification. Kidneys: Normal in size and shape. No evidence of mass or hydronephrosis. Adrenal Glands: Unremarkable. Aorta: The aorta and proximal iliac vessels are grossly unremarkable without aneurysmal dilation. Bowel/Mesentery: The patient appears to be status post colectomy. There is an ostomy site in the rig ht lower quadrant. There is moderate amount of debris within the distal small bowel the ostomy site. The bowel just proximal to the ostomy appears distended measuring 4 cm in diameter. The remaining bow el is more focal. Abdominal Wall: Again noted is the ileostomy site in the right lower quadrant. Retroperitoneum: No evidence of adenopathy in the retrocrural, para-aortic, or deep pelvic regions. Bladder: Contours are smooth. Reproductive Organs: No abnormal masses or calcifications seen. Inguinal: The inguinal region is unremarkable without evidence of adenopathy. Bony Structures: Unremarkable. CONCLUSION: 1. Ileostomy in the right lower quadrant. The bowel immediately proximal to the ostomy site at the s kin surface appears distended raising the possibility of some narrowing at the stoma causing some deg ree of obstruction. The remaining small bowel appears grossly normal. 2. Hepatomegaly. There is a nonspecific small 0.8 cm hypodensity in the medial segment the left lobe of the liver. This likely represent a cyst or hemangioma. Electronically signed by: Taqueria Esparza MD 05/14/2018 1:43 AM EDT
[2018-05-14] MEDS ORDERED: Dicyclomine Inj 20 MG/2 ML Ampul IM ONE (02:19)
[2018-05-14] MEDS ORDERED: Docusate Sodium 100 MG Capsule PO ONE (02:43)
[2018-05-14] MEDS: Sod Chloride 0.9% Inj 1,000 ML IV.CONT SCH ×3 (04:47→20:04)
[2018-05-14 05:29] LABS: Bilirubin,Urine Negative (Negative); Clarity,Urine Slightly Cloudy (Clear); Color,Urine Yellow (Yellw/Straw); Glucose,Urine (UA) Negative (Negative); Leukocyte Esterase,Urine Small (Negative); Nitrite,Urine Negative (Negative); Urobilinogen,Urine 0.2 mg/dL (Less than 2)
[2018-05-14 05:35] LABS: Bacteria,Urine Few /hpf; RBC,Urine 0-3 /hpf (0-3); Squamous Epithelial Cell,Urine 0-5 /hpf (0-5)
--- NOTE | 2018-05-14 08:38 | P.HP ---
History of Present Illness Primary Care Physician: Do Deisy Chavarria Chief Complaint: Abdominal pain History of Present Illness: 43-year-old female with known history of Crohn's disease, multiple bowel obstructions, colon resection, who presented to the emergency department because of abdominal pain. Patient states that she is in normal state of health until last night at approximate 8 PM she got sudden onset of pain located around her ostomy site. She states that it started to feel firm and tender. Because of that she came to emergency department for evaluation. Patient had workup done and was found to have a CT scan indicating possible stomal stenosis. ER physician recommended that the patient be observed in the hospital for further evaluation and management. Patient states that she still experiencing pain in the lower abdomen. Denies any melena, hematochezia. States that the stoma is functioning normally. Stool is coming out normally. Patient denies any nausea, vomiting. Patient indicates a Dr. Harris is her GI doctor who does manage her Crohn's disease and ostomy. - Diagnosis (1) Abdominal pain (2) Stomal stenosis (3) Leukocytosis (4) Azotemia Review of Systems All other systems reviewed negative except as stated in HPI Gastrointestinal: Reports abdominal pain PMFSH - History History Provided By: Patient, Medical Record - Medical History Medical History: Medical History (Last Updated 05/14/18 @ 08:22 by SAMIA Mattson) History of chronic pain History of small bowel obstruction Hx of Crohn's disease Hx of iron deficiency anemia - Surgical History Surgical History: Surgical History (Last Updated 05/14/18 @ 08:20 by SAMIA Mattson) Hx of colectomy Hx of hysterectomy Hx of lumpectomy Hx of resection of small bowel - Family History Family History: Family History (Last Updated 05/14/18 @ 08:22 by SAMIA Mattson) Mother History of cancer Father History of Crohn's disease - Tobacco History Second Hand Smoke Exposure: No Tobacco Use In Past 30 Days: Yes Smoking Status: Refused to answer Tobacco Type: Cigarettes - Alcohol History How Often Do You Have a Drink Containing Alcohol: Never - Substance Use History Substance History: No History of Abuse - Travel History Recent Travel in the [place] Within the Last 8 Weeks: No Recent Travel Out of the Country Within the Last 8 Weeks: No - Immunization History Tetanus Immunization: Unable to Assess Hx Influenza Vaccine This Season: Yes Medications and Allergies Active Medications: Active Medications Sodium Chloride (Ns Inj) 1,000 mls @ 100 mls/hr IV.CONT .Q10H SHARAN Last Admin: 05/14/18 04:47 Dose: 100 mls/hr Ondansetron HCl (Zofran Inj) 4 mg IV.PUSH Q6H PRN PRN Reason: NAUSEA OR VOMITING Sodium Chloride (Ns Flush) 2 ml IV.FLUSH PRN PRN PRN Reason: FLUSH AFTER USING IV ACCESS Allergies Allergy/AdvReac Type Severity Reaction Status Date / Time metronidazole Allergy Severe Vomiting Verified 05/14/18 02:05 ciprofloxacin Allergy Intermediate Nausea/Vomi Verified 05/14/18 02:05 ting nitrofurantoin Allergy Intermediate Nausea/Vomi Verified 05/14/18 02:05 ting Sulfa (Sulfonamide Allergy Intermediate Nausea/Vomi Verified 05/14/18 02:05 Antibiotics) ting adhesive Allergy Mild Rash Verified 05/14/18 02:05 penicillin G Allergy Mild Hives Verified 05/14/18 02:05 morphine AdvReac Severe Nausea/Vomi Verified 05/14/18 02:05 ting Home Medications Medication Instructions Recorded Confirmed Type citalopram 10 mg PO DAILY 05/14/18 05/14/18 History esomeprazole magnesium [Nexium] 20 mg PO BIDAC 05/14/18 05/14/18 History hydrocodone-acetaminophen 1 tab PO Q6H PRN 05/14/18 05/14/18 History trazodone 50 mg PO HS 05/14/18 05/14/18 History Exam Vital signs: Vital Signs 05/13/18 23:55 05/14/18 01:30 05/14/18 03:10 Temperature 98.4 F Pulse Rate 108 H 85 Respiratory Rate 18 14 14 Blood Pressure 121/57 L 95/55 L Pulse Oximetry 98 05/14/18 04:00 05/14/18 04:30 Temperature 97.4 F L Pulse Rate 78 Respiratory Rate 20 18 Blood Pressure 99/57 L Pulse Oximetry 100 Intake & Output 05/13/18 05/14/18 05/14/18 18:59 06:59 18:59 Intake Total 1000 / 1000 Output Total 1000 / 1000 Balance 0 / 0 Weight 71 kg Intake: IV 1000 / 1000 NS Inj 1,000 ML @ Wide Open IV. 1000 / 1000 SIG BOLUS ONE Rx#:[id number] Oral 0 / 0 Output: Urine 1000 / 1000 Other: Date of Last Bowel Movement 05/14/18 Weight On Admission 70.4 kg Narrative: GENERAL: Well-developed, well-nourished, in no acute distress. alert and orientated HEENT: Head is normocephalic without any lesions or masses noted. Facial features are symmetric. Eyes: Pupils equal round reactive to light. Extraocular muscles are intact. Conjunctivae were clear. Oropharyngeal: Pharynx without any erythema edema. Tongue is midline without deviation. Buccal mucosa is moist without any masses or lesions NECK: Supple without any masses. Trachea midline no deviation. No JVD, no bruits are appreciated CARDIAC: Regular rhythm, regular rate. S1/S2 are heard. No murmurs gallops or rubs. LUNGS: Clear to auscultation bilaterally. No wheeze, rhonchi or rales. No use of accessory muscles on inspiration or expiration. ABDOMEN: Soft, tenderness noted around the stomal site in the right lower quadrant.. Nondistended. Bowel sounds heard in all 4 quadrants. No organomegaly or masses. Negative rebound, negative guarding EXTREMITIES: No edema, pulses are equal bilaterally. No cyanosis or clubbing NEUROLOGY: Mood and affect appear appropriate. Cranial nerves II through XII grossly intact. Muscle strength 5/5 in upper and lower extremities bilaterally. Deep tendon reflexes are 2+ in upper and lower extremities bilaterally. Results - Labs CBC & Chem 7: 05/14/18 00:20 05/14/18 00:20 Labs: Laboratory Results - last 24 hr 05/14/18 05/14/18 05/14/18 00:20 00:20 05:10 CBC w Diff Auto diff final WBC 14.1 H RBC 3.51 L Hgb 9.8 L Hct 29.7 L MCV 84.6 MCH 28.0 MCHC 33.1 RDW 15.5 Plt Count 382 MPV 8.7 Neut % (Auto) 72.3 H Lymph % (Auto) 20.2 [place] % (Auto) 3.8 Eos % (Auto) 1.7 Baso % (Auto) 2.0 Neut # (Auto) 10.2 H Lymph # (Auto) 2.8 [place] # (Auto) 0.5 Eos # (Auto) 0.2 Baso # (Auto) 0.3 H WBC Differential . Differential Comment . Sodium 136 Potassium 3.8 Chloride 109 H Carbon Dioxide 21.1 Anion Gap 6 BUN 26 H Creatinine 1.20 H Estimated GFR 49 L Random Glucose 135 H Calcium 8.3 L Total Bilirubin 0.1 L AST 17 ALT 20 Alkaline Phosphatase 106 Total Protein 6.8 Albumin 3.2 L Lipase 216 Urine Color Yellow Urine Clarity Slightly cloudy Urine pH 6.0 Ur Specific [place] 1.010 Urine Protein Trace Urine Glucose (UA) Negative Urine Ketones Negative Urine Occult Blood Trace Urine Nitrate Negative Urine Bilirubin Negative Urine Urobilinogen 0.2 Ur Leukocyte Esterase Small H Urine RBC 0-3 Urine WBC 6-8 H Urine WBC Clumps Few H Ur Squamous Epith Cells 0-5 Urine Bacteria Few H Micro UA Comment Culture indicated Urine Culture Comments Culture indicated - Imaging Impressions Abdomen/Pelvis CT 05/14/18 00:07 CONCLUSION: 1. Ileostomy in the right lower quadrant. The bowel immediately proximal to the ostomy site at the skin surface appears distended raising the possibility of some narrowing at the stoma causing some degree of obstruction. The remaining small bowel appears grossly normal. 2. Hepatomegaly. There is a nonspecific small 0.8 cm hypodensity in the medial segment the left lobe of the liver. This likely represent a cyst or hemangioma. Caprini VTE Risk Assessment Caprini VTE Risk Assessment: No/Low Risk (score <= 1) Caprini Risk Assessment Model: Point Value = 1 Point Value = 2 Point Value = 3 Point Value = 5 Age 41-60 Minor surgery BMI > 25 kg/m2 Swollen legs Varicose veins or History of unexplained or recurrent spontaneous Oral contraceptives or hormone replacement Sepsis (< 1 month) Serious lung disease, including pneumonia (< 1 month) Abnormal pulmonary function Acute myocardial infarction Congestive heart failure (< 1 month) History of inflammatory bowel disease Medical patient at bed rest Age 61-74 Arthroscopic surgery Major open surgery (> 45 min) Laparoscopic surgery (> 45 min) Malignancy Confined to bed (> 72 hours) Immobilizing plaster cast Central venous access Age >= 75 History of VTE Family history of VTE Factor V Leiden Prothrombin [id number] Lupus anticoagulant Anticardiolipin antibodies Elevated serum homocysteine Heparin-induced thrombocytopenia Other congenital or acquired thrombophilia Stroke (< 1 month) Elective arthroplasty Hip, pelvis, or leg fracture Acute spinal cord injury (< 1 month) Prophylaxis Regimen: Total Risk Factor Score Risk Level Prophylaxis Regimen 0-1 Low Early ambulation 2 Moderate Order ONE of the following: *Sequential Compression Device (SCD) *Heparin 5000 units SQ BID 3-4 Higher Order ONE of the following medications: *Heparin 5000 units SQ TID *Enoxaparin/Lovenox 40 mg SQ daily (WT < 150 kg, CrCl > 30 mL/min) *Enoxaparin/Lovenox 30 mg SQ daily (WT < 150 kg, CrCl > 10-29 mL/min) *Enoxaparin/Lovenox 30 mg SQ BID (WT < 150 kg, CrCl > 30 mL/min) AND/OR *Sequential Compression Device (SCD) 5 or more Highest Order ONE of the following medications: *Heparin 5000 units SQ TID (Preferred with Epidurals) *Enoxaparin/Lovenox 40 mg SQ daily (WT < 150 kg, CrCl > 30 mL/min) *Enoxaparin/Lovenox 30 mg SQ daily (WT < 150 kg, CrCl > 10-29 mL/min) *Enoxaparin/Lovenox 30 mg SQ BID (WT < 150 kg, CrCl > 30 mL/min) AND *Sequential Compression Device (SCD) Assessment and Plan - Assessment (1) Abdominal pain Code(s): R10.9 - Unspecified abdominal pain Status: Acute (2) Stomal stenosis Status: Acute (3) Leukocytosis Code(s): D72.829 - Elevated white blood cell count, unspecified Status: Acute (4) Azotemia Code(s): R79.89 - Other specified abnormal findings of blood chemistry Status : Acute - Plan Abdominal pain with CT abnormality of stomal stenosis -We will need close monitoring to evaluate for any developing cellulitis, elena- stomal abscess. -Continue IV fluids -Stool softener started by general surgery -Continue pain control -General surgery consultation requested. Leukocytosis -Unknown significance at this time, may be some underlying infection, concentration -Continue monitor CBC Azotemia -Unknown acute versus chronic -Continue IV fluids -Continue monitor renal function DVT prevention -Sequential compression devices
[2018-05-14 09:30] LABS: Baso % (Auto) 0.5 % (0.0-2.0); Eos # (Auto) 0.2 th/mm3 (0.0-0.4); Eos % (Auto) 2.3 % (0.0-4.0); Hematocrit 28.2 % (35.0-46.0); Hemoglobin 9.4 gm/dL (11.6-15.3); Lymph # (Auto) 1.3 th/mm3 (1.0-4.8); Lymph % (Auto) 17.2 % (9.0-44.0); Mean Corpuscular HGB Conc 33.4 % (32.0-36.0); Mean Corpuscular Hemoglobin 28.4 pg (27.0-34.0); Mean Platelet Volume 7.9 fL (7.0-11.0); Mono # (Auto) 0.3 th/mm3 (0.0-0.9); Mono % (Auto) 3.3 % (0.0-8.0); Neut % (Auto) 76.7 % (16.0-70.0); Platelet Count 321 th/mm3 (150-450); Red Blood Count 3.32 mil/mm3 (4.00-5.30); Red Cell Distribution Width 15.3 % (11.6-17.2); White Blood Count 7.8 th/mm3 (4.0-11.0)
[2018-05-14] MEDS: HYDROmorphone PF Inj 2 MG/ML Vial IV.PUSH PRN ×3 (09:30→17:23)
[2018-05-14] MEDS: Docusate Sodium 100 MG Capsule PO SCH ×2 (09:31→22:30)
[2018-05-14 10:16] LABS: Calcium 8.1 mg/dL (8.5-10.1); Carbon Dioxide 23.6 meq/L (21.0-32.0)
[2018-05-14 10:17] LABS: Glucose,Random 89 mg/dL (74-106)
[2018-05-14 10:21] LABS: Total Protein 5.8 g/dL (6.4-8.2)
[2018-05-14 10:23] LABS: Albumin 2.8 g/dL (3.4-5.0)
[2018-05-14 10:24] LABS: Anion Gap 5 meq/L (5-15); Chloride 113 meq/L (98-107); Potassium 3.8 meq/L (3.5-5.1); Sodium 142 meq/L (136-145)
[2018-05-14 10:26] LABS: Aspartate Aminotransferase 17 U/L (15-37); Glomerular Filtration Rate Greater Than 89 mL/min (>89)
[2018-05-14 10:29] LABS: Alanine Aminotransferase 13 U/L (10-53)
[2018-05-14 10:30] LABS: Blood Urea Nitrogen 19 mg/dL (7-18)
[2018-05-14 10:32] LABS: Alkaline Phosphatase 88 U/L (45-117)
--- NOTE | 2018-05-14 13:01 | P.CONGS ---
HPI Gen Surgery Consult Note Consult date: 05/14/18 Reason for consult: other (possible obstruction) Requesting physician: Viri Lewis Narrative: A 43-year-old female with a past medical history of Crohn's disease, small bowel obstructions and anemia. The patient was in her usual state of health until last night when she developed severe onset of abdominal pain. She states she felt firmness at her existing ileostomy site. She denies any nausea, vomiting, fevers or chills. The patient does have an elevated white blood cell count 14.1. The patient's hemoglobin is 9.8. A CT abdomen and pelvis was obtained which shows an ileostomy in the right lower quadrant; bowel proximal to the ostomy site at the skin surface appears distended concerning for narrowing of the stoma. The patient states that she had an excess of sunflower seeds in the 2 days. She states she usually eats sunflower seeds without any complications. In the ED a digital disimpaction through the ileostomy was completed. A General Surgery consultation has been requested. <Preeti El - Last Filed: 05/14/18 14:47> Review of Systems Constitutional: Denies chills, Denies fever(s) Eyes: Denies blurry vision Ears, Nose, Mouth, and Throat: Denies mouth pain, Denies nasal congestion Cardiovascular: Denies chest pain, Denies chest pain at rest, Denies chest pain with activity Respiratory: Denies chest congestion, Denies cough Gastrointestinal: Reports abdominal pain, Denies nausea, Denies vomiting Genitourinary: Denies urinary incontinence Musculoskeletal: Denies abnormal walking, Denies back pain Skin/Breast: Denies bleeding lesions, Denies boil Neurologic: Denies abnormal hearing, Denies dizziness, Denies fainting Psychiatric: Denies anxiety, Denies depression Endocrine: Denies cold intolerance, Denies heat intolerance Hematologic/Lymphatic: Denies easy bleeding Allergic/Immunologic: Denies GI upset with certain foods <Preeti El - Last Filed: 05/14/18 14:47> PMFSH - History History Provided By: Patient, Medical Record - Medical History Medical History: Medical History (Last Reviewed 05/14/18 @ 14:48 by ÁNGELA Valladares) History of chronic pain History of small bowel obstruction Hx of Crohn's disease Hx of iron deficiency anemia - Surgical History Surgical History: Surgical History (Last Reviewed 05/14/18 @ 14:48 by ÁNGELA Valladares) Hx of colectomy Hx of hysterectomy Hx of lumpectomy Hx of resection of small bowel - Family History Family History: Family History (Last Updated 05/14/18 @ 08:22 by SAMIA Mattson) Mother History of cancer Father History of Crohn's disease - Tobacco History Second Hand Smoke Exposure: No Tobacco Use In Past 30 Days: Yes Smoking Status: Refused to answer Tobacco Type: Cigarettes - Alcohol History How Often Do You Have a Drink Containing Alcohol: Never - Substance Use History Substance History: No History of Abuse - Travel History Recent Travel in the [place] Within the Last 8 Weeks: No Recent Travel Out of the Country Within the Last 8 Weeks: No - Immunization History Tetanus Immunization: Unable to Assess Hx Influenza Vaccine This Season: Yes <Preeti El - Last Filed: 05/14/18 14:47> - Medical History Medical History: Medical History (Last Reviewed 05/14/18 @ 14:48 by ÁNGELA Valladares) History of chronic pain History of small bowel obstruction Hx of Crohn's disease Hx of iron deficiency anemia - Surgical History Surgical History: Surgical History (Last Reviewed 05/14/18 @ 14:48 by ÁNGELA Valladares) Hx of colectomy Hx of hysterectomy Hx of lumpectomy Hx of resection of small bowel - Family History Family History: Family History (Last Updated 05/14/18 @ 08:22 by SAMIA Mattson) Mother History of cancer Father History of Crohn's disease <Jann Barillas - Last Filed: 05/14/18 19:12> Medications and Allergies Active Medications: Active Medications Docusate Sodium (Colace) 100 mg PO BID [facility] Last Admin: 05/14/18 09:31 Dose: 100 mg Hydromorphone HCl (Dilaudid Pf Inj) 1 mg IV.PUSH Q4H PRN PRN Reason: pain 1-10 Last Admin: 05/14/18 09:30 Dose: 1 mg Sodium Chloride (Ns Inj) 1,000 mls @ 100 mls/hr IV.CONT .Q10H [facility] Last Admin: 05/14/18 04:47 Dose: 100 mls/hr Ondansetron HCl (Zofran Inj) 4 mg IV.PUSH Q6H PRN PRN Reason: NAUSEA OR VOMITING Sodium Chloride (Ns Flush) 2 ml IV.FLUSH PRN PRN PRN Reason: FLUSH AFTER USING IV ACCESS <Preeti El - Last Filed: 05/14/18 14:47> Active Medications: Active Medications Docusate Sodium (Colace) 100 mg PO BID [facility] Last Admin: 05/14/18 09:31 Dose: 100 mg Hydromorphone HCl (Dilaudid Pf Inj) 1 mg IV.PUSH Q4H PRN PRN Reason: pain 1-10 Last Admin: 05/14/18 17:23 Dose: 1 mg Sodium Chloride (Ns Inj) 1,000 mls @ 100 mls/hr IV.CONT .Q10H [facility] Last Admin: 05/14/18 17:22 Dose: 100 mls/hr Ondansetron HCl (Zofran Inj) 4 mg IV.PUSH Q6H PRN PRN Reason: NAUSEA OR VOMITING Sodium Chloride (Ns Flush) 2 ml IV.FLUSH PRN PRN PRN Reason: FLUSH AFTER USING IV ACCESS <Jann Barillas - Last Filed: 05/14/18 19:12> Allergies Allergy/AdvReac Type Severity Reaction Status Date / Time metronidazole Allergy Severe Vomiting Verified 05/14/18 02:05 ciprofloxacin Allergy Intermediate Nausea/Vomi Verified 05/14/18 02:05 ting nitrofurantoin Allergy Intermediate Nausea/Vomi Verified 05/14/18 02:05 ting Sulfa (Sulfonamide Allergy Intermediate Nausea/Vomi Verified 05/14/18 02:05 Antibiotics) ting adhesive Allergy Mild Rash Verified 05/14/18 02:05 penicillin G Allergy Mild Hives Verified 05/14/18 02:05 morphine AdvReac Severe Nausea/Vomi Verified 05/14/18 02:05 ting Home Medications Medication Instructions Recorded Confirmed Type citalopram 10 mg PO DAILY 05/14/18 05/14/18 History esomeprazole magnesium [Nexium] 20 mg PO BIDAC 05/14/18 05/14/18 History hydrocodone-acetaminophen 1 tab PO Q6H PRN 05/14/18 05/14/18 History trazodone 50 mg PO HS 05/14/18 05/14/18 History Exam Vital signs: Vital Signs 05/13/18 23:55 05/14/18 01:30 05/14/18 03:10 Temperature 98.4 F Pulse Rate 108 H 85 Respiratory Rate 18 14 14 Blood Pressure 121/57 L 95/55 L Pulse Oximetry 98 05/14/18 04:00 05/14/18 04:30 05/14/18 08:00 Temperature 97.4 F L 97.9 F Pulse Rate 78 87 Respiratory Rate 20 18 20 Blood Pressure 99/57 L 99/60 L Pulse Oximetry 100 96 Intake & Output 05/13/18 05/14/18 05/14/18 18:59 06:59 18:59 Intake Total 1000 / 1000 Output Total 1000 / 1000 Balance 0 / 0 Weight 71 kg Intake: IV 1000 / 1000 NS Inj 1,000 ML @ Wide Open IV. 1000 / 1000 SIG BOLUS ONE Rx#:[id number] Oral 0 / 0 Output: Urine 1000 / 1000 Other: Date of Last Bowel Movement 05/14/18 Weight On Admission 70.4 kg Narrative: GENERAL: 43 year old female resting in bed in mild acute distress secondary to abdominal pain. SKIN: Warm and dry. HEAD: Atraumatic. Normocephalic. EYES: Pupils equal and round. No scleral icterus. No injection or drainage. ENT: No nasal bleeding or discharge. Mucous membranes pink and moist. NECK: Trachea midline. CARDIOVASCULAR: Regular rate and rhythm. RESPIRATORY: No accessory muscle use. Clear to auscultation. Breath sounds equal bilaterally. GASTROINTESTINAL: Abdomen soft, nondistended. Ileostomy in place with pink stoma--liquid brown thin stool in place with sediments; skin surrounding stoma is hard. Well healed midline incision. Tender throughout. MUSCULOSKELETAL: Extremities without clubbing, cyanosis, or edema. No obvious deformities. NEUROLOGICAL: Awake and alert. No obvious cranial nerve deficits. Motor grossly within normal limits. Five out of 5 muscle strength in the arms and legs. Normal speech. PSYCHIATRIC: Appropriate mood and affect; insight and judgment normal. <Preeti El - Last Filed: 05/14/18 14:47> Vital signs: Vital Signs 05/13/18 23:55 05/14/18 01:30 05/14/18 03:10 Temperature 98.4 F Pulse Rate 108 H 85 Respiratory Rate 18 14 14 Blood Pressure 121/57 L 95/55 L Pulse Oximetry 98 05/14/18 04:00 05/14/18 04:30 05/14/18 08:00 Temperature 97.4 F L 97.9 F Pulse Rate 78 87 Respiratory Rate 20 18 20 Blood Pressure 99/57 L 99/60 L Pulse Oximetry 100 96 05/14/18 12:00 05/14/18 16:00 Temperature 98.2 F 97.5 F L Pulse Rate 88 78 Respiratory Rate 20 20 Blood Pressure 103/66 108/58 L Pulse Oximetry 96 95 Intake & Output 05/14/18 05/14/18 05/15/18 06:59 18:59 06:59 Intake Total 1000 / 1000 1000 / 1000 Output Total 1000 / 1000 Balance 0 / 0 1000 / 1000 Weight 71 kg Intake: IV 1000 / 1000 1000 / 1000 NS Inj 1,000 ML @ 100 mls/hr IV 1000 / 1000 .CONT .Q10H [facility] Rx#:[id number] NS Inj 1,000 ML @ Wide Open IV. 1000 / 1000 SIG BOLUS ONE Rx#:[id number] Oral 0 / 0 Output: Urine 1000 / 1000 Other: Date of Last Bowel Movement 05/14/18 Weight On Admission 70.4 kg - Routine Abdominal Exam Present: soft, tenderness (Left lower quadrant), guarding <Jann Barillas - Last Filed: 05/14/18 19:12> Results - Labs 05/14/18 09:10 05/14/18 09:10 Abnormal lab results 05/14/18 05/14/18 05/14/18 Range/Units 00:20 00:20 05:10 WBC 14.1 H (4.0-11.0) th/mm3 RBC 3.51 L (4.00-5.30) mil/mm3 Hgb 9.8 L (11.6-15.3) gm/dL Hct 29.7 L (35.0-46.0) % Neut % (Auto) 72.3 H (16.0-70.0) % Neut # (Auto) 10.2 H (1.8-7.7) th/mm3 Baso # (Auto) 0.3 H (0.0-0.2) th/mm3 Chloride 109 H (98-107) meq/L BUN 26 H (7-18) mg/dL Creatinine 1.20 H (0.50-1.00) mg/dL Estimated GFR 49 L (>89) mL/min Random Glucose 135 H (74-106) mg/dL Calcium 8.3 L (8.5-10.1) mg/dL Total Bilirubin 0.1 L (0.2-1.0) mg/dL Total Protein (6.4-8.2) g/dL Albumin 3.2 L (3.4-5.0) g/dL Ur Leukocyte Esterase Small H (Negative) Urine WBC 6-8 H (0-5) /hpf Urine WBC Clumps Few H (None) Urine Bacteria Few H (None) /hpf 05/14/18 05/14/18 Range/Units 09:10 09:10 WBC (4.0-11.0) th/mm3 RBC 3.32 L (4.00-5.30) mil/mm3 Hgb 9.4 L (11.6-15.3) gm/dL Hct 28.2 L (35.0-46.0) % Neut % (Auto) 76.7 H (16.0-70.0) % Neut # (Auto) (1.8-7.7) th/mm3 Baso # (Auto) (0.0-0.2) th/mm3 Chloride 113 H (98-107) meq/L BUN 19 H (7-18) mg/dL Creatinine (0.50-1.00) mg/dL Estimated GFR (>89) mL/min Random Glucose (74-106) mg/dL Calcium 8.1 L (8.5-10.1) mg/dL Total Bilirubin (0.2-1.0) mg/dL Total Protein 5.8 L D (6.4-8.2) g/dL Albumin 2.8 L (3.4-5.0) g/dL Ur Leukocyte Esterase (Negative) Urine WBC (0-5) /hpf Urine WBC Clumps (None) Urine Bacteria (None) /hpf Diabetes panel 05/14/18 05/14/18 Range/Units 00:20 09:10 Sodium 136 142 (136-145) meq/L Potassium 3.8 3.8 (3.5-5.1) meq/L Chloride 109 H 113 H (98-107) meq/L Carbon Dioxide 21.1 23.6 (21.0-32.0) meq/L BUN 26 H 19 H (7-18) mg/dL Creatinine 1.20 H 0.66 (0.50-1.00) mg/dL Calcium 8.3 L 8.1 L (8.5-10.1) mg/dL AST 17 17 (15-37) U/L ALT 20 13 (10-53) U/L Alkaline Phosphatase 106 88 (45-117) U/L Total Protein 6.8 5.8 L D (6.4-8.2) g/dL Albumin 3.2 L 2.8 L (3.4-5.0) g/dL Calcium panel 05/14/18 05/14/18 Range/Units 00:20 09:10 Calcium 8.3 L 8.1 L (8.5-10.1) mg/dL Albumin 3.2 L 2.8 L (3.4-5.0) g/dL Pituitary panel 05/14/18 05/14/18 Range/Units 00:20 09:10 Sodium 136 142 (136-145) meq/L Potassium 3.8 3.8 (3.5-5.1) meq/L Chloride 109 H 113 H (98-107) meq/L Carbon Dioxide 21.1 23.6 (21.0-32.0) meq/L BUN 26 H 19 H (7-18) mg/dL Creatinine 1.20 H 0.66 (0.50-1.00) mg/dL Calcium 8.3 L 8.1 L (8.5-10.1) mg/dL Adrenal panel 05/14/18 05/14/18 Range/Units 00:20 09:10 Sodium 136 142 (136-145) meq/L Potassium 3.8 3.8 (3.5-5.1) meq/L Chloride 109 H 113 H (98-107) meq/L Carbon Dioxide 21.1 23.6 (21.0-32.0) meq/L BUN 26 H 19 H (7-18) mg/dL Creatinine 1.20 H 0.66 (0.50-1.00) mg/dL Calcium 8.3 L 8.1 L (8.5-10.1) mg/dL Total Bilirubin 0.1 L 0.2 (0.2-1.0) mg/dL AST 17 17 (15-37) U/L ALT 20 13 (10-53) U/L Alkaline Phosphatase 106 88 (45-117) U/L Total Protein 6.8 5.8 L D (6.4-8.2) g/dL Albumin 3.2 L 2.8 L (3.4-5.0) g/dL All other labs normal. - Imaging CT scan - abdomen: image reviewed <Preeti El - Last Filed: 05/14/18 14:47> - Labs 05/14/18 09:10 05/14/18 09:10 Abnormal lab results 05/14/18 05/14/18 05/14/18 Range/Units 00:20 00:20 05:10 WBC 14.1 H (4.0-11.0) th/mm3 RBC 3.51 L (4.00-5.30) mil/mm3 Hgb 9.8 L (11.6-15.3) gm/dL Hct 29.7 L (35.0-46.0) % Neut % (Auto) 72.3 H (16.0-70.0) % Neut # (Auto) 10.2 H (1.8-7.7) th/mm3 Baso # (Auto) 0.3 H (0.0-0.2) th/mm3 Chloride 109 H (98-107) meq/L BUN 26 H (7-18) mg/dL Creatinine 1.20 H (0.50-1.00) mg/dL Estimated GFR 49 L (>89) mL/min Random Glucose 135 H (74-106) mg/dL Calcium 8.3 L (8.5-10.1) mg/dL Total Bilirubin 0.1 L (0.2-1.0) mg/dL Total Protein (6.4-8.2) g/dL Albumin 3.2 L (3.4-5.0) g/dL Ur Leukocyte Esterase Small H (Negative) Urine WBC 6-8 H (0-5) /hpf Urine WBC Clumps Few H (None) Urine Bacteria Few H (None) /hpf 05/14/18 05/14/18 Range/Units 09:10 09:10 WBC (4.0-11.0) th/mm3 RBC 3.32 L (4.00-5.30) mil/mm3 Hgb 9.4 L (11.6-15.3) gm/dL Hct 28.2 L (35.0-46.0) % Neut % (Auto) 76.7 H (16.0-70.0) % Neut # (Auto) (1.8-7.7) th/mm3 Baso # (Auto) (0.0-0.2) th/mm3 Chloride 113 H (98-107) meq/L BUN 19 H (7-18) mg/dL Creatinine (0.50-1.00) mg/dL Estimated GFR (>89) mL/min Random Glucose (74-106) mg/dL Calcium 8.1 L (8.5-10.1) mg/dL Total Bilirubin (0.2-1.0) mg/dL Total Protein 5.8 L D (6.4-8.2) g/dL Albumin 2.8 L (3.4-5.0) g/dL Ur Leukocyte Esterase (Negative) Urine WBC (0-5) /hpf Urine WBC Clumps (None) Urine Bacteria (None) /hpf Diabetes panel 05/14/18 05/14/18 Range/Units 00:20 09:10 Sodium 136 142 (136-145) meq/L Potassium 3.8 3.8 (3.5-5.1) meq/L Chloride 109 H 113 H (98-107) meq/L Carbon Dioxide 21.1 23.6 (21.0-32.0) meq/L BUN 26 H 19 H (7-18) mg/dL Creatinine 1.20 H 0.66 (0.50-1.00) mg/dL Calcium 8.3 L 8.1 L (8.5-10.1) mg/dL AST 17 17 (15-37) U/L ALT 20 13 (10-53) U/L Alkaline Phosphatase 106 88 (45-117) U/L Total Protein 6.8 5.8 L D (6.4-8.2) g/dL Albumin 3.2 L 2.8 L (3.4-5.0) g/dL Calcium panel 05/14/18 05/14/18 Range/Units 00:20 09:10 Calcium 8.3 L 8.1 L (8.5-10.1) mg/dL Albumin 3.2 L 2.8 L (3.4-5.0) g/dL Pituitary panel 05/14/18 05/14/18 Range/Units 00:20 09:10 Sodium 136 142 (136-145) meq/L Potassium 3.8 3.8 (3.5-5.1) meq/L Chloride 109 H 113 H (98-107) meq/L Carbon Dioxide 21.1 23.6 (21.0-32.0) meq/L BUN 26 H 19 H (7-18) mg/dL Creatinine 1.20 H 0.66 (0.50-1.00) mg/dL Calcium 8.3 L 8.1 L (8.5-10.1) mg/dL Adrenal panel 05/14/18 05/14/18 Range/Units 00:20 09:10 Sodium 136 142 (136-145) meq/L Potassium 3.8 3.8 (3.5-5.1) meq/L Chloride 109 H 113 H (98-107) meq/L Carbon Dioxide 21.1 23.6 (21.0-32.0) meq/L BUN 26 H 19 H (7-18) mg/dL Creatinine 1.20 H 0.66 (0.50-1.00) mg/dL Calcium 8.3 L 8.1 L (8.5-10.1) mg/dL Total Bilirubin 0.1 L 0.2 (0.2-1.0) mg/dL AST 17 17 (15-37) U/L ALT 20 13 (10-53) U/L Alkaline Phosphatase 106 88 (45-117) U/L Total Protein 6.8 5.8 L D (6.4-8.2) g/dL Albumin 3.2 L 2.8 L (3.4-5.0) g/dL All other labs normal. - Imaging CT scan - abdomen: report reviewed, image reviewed <Jann Barillas - Last Filed: 05/14/18 19:12> Assessment and Plan - Assessment (1) Stomal stenosis Status: Acute Plan: 43 year old female s/p ileostomy with abdominal pain -s/p digital disimpaction -Ordered Colace; may require more cathartics -Recommend not eating seeds and nuts which is likely the cause of obstruction -Pain control -Sips of clear liquids as tolerated until stool -OOB and mobilize -IVF hydration -All questions answered -Discussed with [employer] GRACIA -Thank you for this consult; We will continue to follow - Plan Discussed Condition With: Dr. Eran Lara RN, Ms. Pablo <Preeti El - Last Filed: 05/14/18 14:47> - Assessment (1) Stomal stenosis Status: Acute Plan: No evidence obstruction at this time Advance diet in AM Increase IVF tonight - Plan Discussed Condition With: [employer]qu[employer] GRACIA Patient <Jann Barillas - Last Filed: 05/14/18 19:12>
[2018-05-14] MEDS ORDERED: HYDROmorphone PF Inj 1 MG/ML Ampul IV.PUSH PRN ×2 (20:00→22:00)
[2018-05-14] MEDS: HYDROmorphone PF Inj 0.5 MG/0.5 ML Syringe IV.PUSH PRN ×2 (22:28→23:56)
[2018-05-15] MEDS: HYDROmorphone PF Inj 0.5 MG/0.5 ML Syringe IV.PUSH PRN (02:02)
[2018-05-15] MEDS: HYDROmorphone PF Inj 2 MG/ML Vial IV.PUSH PRN ×2 (04:04→06:13)
[2018-05-15] MEDS: Sod Chloride 0.9% Inj 1,000 ML IV.CONT SCH (04:09)
--- NOTE | 2018-05-15 06:36 | P.PNGS ---
<Preeti El - Last Filed: 05/15/18 14:10> Subjective Interval history: Liquid stool in bag; pain better; wants to eat Physical Exam Vital signs: Vital Signs 05/14/18 08:00 05/14/18 12:00 05/14/18 16:00 Temperature 97.9 F 98.2 F 97.5 F L Pulse Rate 87 88 78 Respiratory Rate 20 20 20 Blood Pressure 99/60 L 103/66 108/58 L Pulse Oximetry 96 96 95 05/14/18 20:00 05/14/18 21:54 05/15/18 00:00 Temperature 98.4 F Pulse Rate 73 56 L Respiratory Rate 20 18 20 Blood Pressure 103/52 L 99/51 L Pulse Oximetry 98 98 Intake & Output 05/14/18 05/14/18 05/15/18 06:59 18:59 06:59 Intake Total 1000 / 1000 1300 / 1300 2390 / 2390 Output Total 1000 / 1000 850 / 850 800 / 800 Balance 0 / 0 450 / 450 1590 / 1590 Weight 71 kg 75.1 kg Intake: IV 1000 / 1000 1000 / 1000 2000 / 1999 NS Inj 1,000 ML @ 125 mls/hr IV 1000 / 1000 2000 / 2000 .CONT .Q8H SHARAN Rx#:[id number] NS Inj 1,000 ML @ Wide Open IV. 1000 / 1000 SIG BOLUS ONE Rx#:[id number] Oral 0 / 0 300 / 300 390 / 390 Output: Urine 1000 / 1000 850 / 850 450 / 450 Stool 350 / 350 Other: # Voids 1 Date of Last Bowel Movement 05/14/18 05/14/18 # Bowel Movements 1 Weight On Admission 70.4 kg Narrative: Alert and awake Cardio: RRR Resp: CTAB Abd: soft; ileostomy in place with liquid stool; no sediments; area surrounding stoma is soft; minimal tenderness with palpation Assessment and Plan - Assessment (1) Stomal stenosis Status: Acute Plan: 43 year old female with existing ileostomy; ? of stomal stenosis -Advance to regular diet -OOB as tolerated -De-escalate IV pain medications; encourage the use of oral pain meds (if needed ) -Home when tolerating diet <Jann Barillas - Last Filed: 05/15/18 17:28> Physical Exam Vital signs: Vital Signs 05/14/18 20:00 05/14/18 21:54 05/15/18 00:00 Temperature 98.4 F Pulse Rate 73 56 L Respiratory Rate 20 18 20 Blood Pressure 103/52 L 99/51 L Pulse Oximetry 98 98 05/15/18 08:00 Temperature 96.4 F L Pulse Rate 63 Respiratory Rate 16 Blood Pressure 93/51 L Pulse Oximetry 100 Intake & Output 05/14/18 05/15/18 05/15/18 18:59 06:59 18:59 Intake Total 1300 / 1300 2390 / 2390 Output Total 850 / 850 800 / 800 Balance 450 / 450 1590 / 1590 Weight 75.1 kg Intake: IV 1000 / 1000 1999 / 1999 NS Inj 1,000 ML @ 125 mls/hr IV 1000 / 1000 1999 .CONT .Q8H [facility] Rx#:[id number] Oral 300 / 300 390 / 390 Output: Urine 850 / 850 450 / 450 Stool 350 / 350 Other: # Voids 1 Date of Last Bowel Movement 05/14/18 05/15/18 # Bowel Movements 1 Assessment and Plan - Assessment (1) Stomal stenosis Status: Acute Plan: Abdomen soft and less tender today; ileostomy functioning well. Heplock IVF If pain continues to improve, discharge home The exam, history, and the medical decision-making described in the above note were completed with the assistance of the mid-level provider. I reviewed and agree with the findings presented. I attest that I had a [id number] encounter with the patient on the same day, and personally performed and documented my assessment and findings in the medical record.
[2018-05-15] MEDS: Docusate Sodium 100 MG Capsule PO SCH (08:14)
--- NOTE | 2018-05-15 08:19 | P.PN ---
Subjective Interval history: 43-year-old female who is seen and examined today for abdominal pain associated with ileostomy. Patient had a liquid stool flowing freely out of the ileostomy at this time. Patient tolerated breakfast without any complications. Patient states that she has experienced some cramping sensation in her abdomen. She did not elicit any continuous pain. Vital signs are stable. Patient remains afebrile. Patient tolerated regular diet, nursing staff indicates that the patient wants to go home. States that she is eating, pain is controlled, and her ostomy is working. Physical Exam Vital signs: Vital Signs 05/14/18 12:00 05/14/18 16:00 05/14/18 20:00 Temperature 98.2 F 97.5 F L 98.4 F Pulse Rate 88 78 73 Respiratory Rate 20 20 20 Blood Pressure 103/66 108/58 L 103/52 L Pulse Oximetry 96 95 98 05/14/18 21:54 05/15/18 00:00 Temperature Pulse Rate 56 L Respiratory Rate 18 20 Blood Pressure 99/51 L Pulse Oximetry 98 Intake & Output 05/14/18 05/15/18 05/15/18 18:59 06:59 18:59 Intake Total 1300 / 1300 2390 / 2390 Output Total 850 / 850 800 / 800 Balance 450 / 450 1590 / 1590 Weight 75.1 kg Intake: IV 1000 / 1000 1999 / 1999 NS Inj 1,000 ML @ 125 mls/hr IV 1000 / 1000 1999 / 1999 .CONT .Q8H [facility] Rx#:[id number] Oral 300 / 300 390 / 390 Output: Urine 850 / 850 450 / 450 Stool 350 / 350 Other: # Voids 1 Date of Last Bowel Movement 05/14/18 # Bowel Movements 1 Narrative: GENERAL: Well-developed, well-nourished, in no acute distress. alert and orientated HEENT: Head is normocephalic without any lesions or masses noted. Facial features are symmetric. Eyes: Extraocular muscles are intact. Conjunctivae were clear. NECK: Supple without any masses. Trachea midline no deviation. No JVD, CARDIAC: Regular rhythm, regular rate. S1/S2 are heard. No murmurs gallops or rubs. LUNGS: Clear to auscultation bilaterally. No wheeze, rhonchi or rales. No use of accessory muscles on inspiration or expiration. ABDOMEN: Soft, tenderness noted around the stomal site in the right lower quadrant.. Nondistended. Bowel sounds heard in all 4 quadrants. No organomegaly or masses. Negative rebound, negative guarding EXTREMITIES: No edema, pulses are equal bilaterally. No cyanosis or clubbing NEUROLOGY: Mood and affect appear appropriate. Cranial nerves II through XII grossly intact. Moving all extremities, speech is clear Results - Labs CBC & Chem 7: 05/15/18 08:10 05/15/18 08:10 Laboratory Results - last 24 hr 05/14/18 05/14/18 09:10 09:10 CBC w Diff Auto diff final WBC 7.8 RBC 3.32 L Hgb 9.4 L Hct 28.2 L MCV 85.0 MCH 28.4 MCHC 33.4 RDW 15.3 Plt Count 321 MPV 7.9 Neut % (Auto) 76.7 H Lymph % (Auto) 17.2 [place] % (Auto) 3.3 Eos % (Auto) 2.3 Baso % (Auto) 0.5 Neut # (Auto) 6.0 Lymph # (Auto) 1.3 [place] # (Auto) 0.3 Eos # (Auto) 0.2 Baso # (Auto) 0.0 WBC Differential . Differential Comment . Sodium 142 Potassium 3.8 Chloride 113 H Carbon Dioxide 23.6 Anion Gap 5 BUN 19 H Creatinine 0.66 Estimated GFR Greater than 89 Random Glucose 89 Calcium 8.1 L Total Bilirubin 0.2 AST 17 ALT 13 Alkaline Phosphatase 88 Total Protein 5.8 L D Albumin 2.8 L Assessment and Plan - Assessment (1) Abdominal pain Code(s): R10.9 - Unspecified abdominal pain Status: Acute (2) Stomal stenosis Status: Acute (3) Leukocytosis Code(s): D72.829 - Elevated white blood cell count, unspecified Status: Acute (4) Azotemia Code(s): R79.89 - Other specified abnormal findings of blood chemistry Status : Acute - Plan Abdominal pain with CT abnormality of stomal stenosis -We will need close monitoring to evaluate for any developing cellulitis, elena- stomal abscess. -Continue IV fluids -Stool softener started by general surgery -Continue pain control -General surgery consultation requested. -Discussed with Dr. Barillas who indicated that patient can be switched to p.o. pain medication this morning and discontinuation of IV pain medication. Advance diet. If she tolerates diet, pain is controlled and patient wants to go home. Patient can be discharged with outpatient follow-up -Patient is requesting to be discharged. She is tolerating diet, good output from her ostomy. Pain is controlled. Leukocytosis, resolved -Likely related to concentration -Continue monitor CBC Azotemia, resolved -Unknown acute versus chronic -Continue IV fluids -Continue monitor renal function DVT prevention -Sequential compression devices Discharge Planning: Discharge planning once patient pain control, tolerating diet.
[2018-05-15 08:48] LABS: Chloride 112 meq/L (98-107); Potassium 3.5 meq/L (3.5-5.1); Sodium 140 meq/L (136-145)
[2018-05-15 08:49] LABS: Baso # (Auto) 0.1 th/mm3 (0.0-0.2); Eos # (Auto) 0.2 th/mm3 (0.0-0.4); Eos % (Auto) 2.8 % (0.0-4.0); Hematocrit 29.5 % (35.0-46.0); Hemoglobin 9.6 gm/dL (11.6-15.3); Lymph # (Auto) 1.6 th/mm3 (1.0-4.8); Lymph % (Auto) 25.1 % (9.0-44.0); Mean Corpuscular HGB Conc 32.5 % (32.0-36.0); Mean Corpuscular Hemoglobin 27.8 pg (27.0-34.0); Mean Corpuscular Volume 85.5 fL (80.0-100.0); Mean Platelet Volume 8.6 fL (7.0-11.0); Mono # (Auto) 0.2 th/mm3 (0.0-0.9); Mono % (Auto) 3.9 % (0.0-8.0); Neut # (Auto) 4.3 th/mm3 (1.8-7.7); Neut % (Auto) 67.2 % (16.0-70.0); Platelet Count 314 th/mm3 (150-450); Red Blood Count 3.45 mil/mm3 (4.00-5.30); Red Cell Distribution Width 14.3 % (11.6-17.2); White Blood Count 6.4 th/mm3 (4.0-11.0)
[2018-05-15 08:51] LABS: Anion Gap 4 meq/L (5-15); Blood Urea Nitrogen 13 mg/dL (7-18); Carbon Dioxide 24.3 meq/L (21.0-32.0); Glucose,Random 103 mg/dL (74-106)
[2018-05-15 08:54] LABS: Glomerular Filtration Rate Greater Than 89 mL/min (>89)
== END 2018-05-15 11:33 | disposition home or self-care (01) ==
LOC: PH3 23:51 → PHEDA 23:51 → PHED 23:51 → PH3 05-14 04:19
PROVIDERS: ADMIT Family Medicine; ATTEND Family Medicine
DX: Z90.49 Acquired absence of other specified parts of digestive tract; Z79.899 Other long term (current) drug therapy; K56.609 Unspecified intestinal obstruction, unspecified as to partial versus complete obstruction; Z88.2 Allergy status to sulfonamides; K94.09 Other complications of colostomy; K50.90 Crohn's disease, unspecified, without complications; T85.848A Pain due to other internal prosthetic devices, implants and grafts, initial encounter; Z88.1 Allergy status to other antibiotic agents; R10.9 Unspecified abdominal pain; Z88.3 Allergy status to other anti-infective agents; Z88.0 Allergy status to penicillin; Z90.710 Acquired absence of both cervix and uterus; F17.210 Nicotine dependence, cigarettes, uncomplicated; D72.829 Elevated white blood cell count, unspecified

== ENCOUNTER 2018-09-15 16:40 | Observation (INO) ==
--- NOTE | 2018-09-15 17:16 | ED ---
HPI General Chief Complaint: Chest Pain Stated Complaint: chest pain Time Seen by Provider: 09/15/18 17:01 History of Present Illness HPI narrative: The patient was seen and examined in the presence of the nurse. This patient complains of chest pain. Location is center sternum. Feels like an aching pressure. Duration is 2 hours. Severity is moderate. No alleviating factors. No exacerbating factors. There is no pleuritic nature to it. She has not short of breath. She denies history of cardiac or pulmonary disease. Denies history of stress testing. Related Data Home Medications Medication Instructions Recorded Confirmed citalopram 10 mg PO DAILY 05/14/18 09/15/18 esomeprazole magnesium [Nexium] 20 mg PO BIDAC 05/14/18 09/15/18 hydrocodone-acetaminophen 1 tab PO Q6H PRN 05/14/18 09/15/18 Allergies Allergy/AdvReac Type Severity Reaction Status Date / Time metronidazole Allergy Severe Vomiting Verified 09/15/18 17:00 ciprofloxacin Allergy Intermediate Nausea/Vomi Verified 09/15/18 17:00 ting nitrofurantoin Allergy Intermediate Nausea/Vomi Verified 09/15/18 17:00 ting Sulfa (Sulfonamide Allergy Intermediate Nausea/Vomi Verified 09/15/18 17:00 Antibiotics) ting adhesive Allergy Mild Rash Verified 09/15/18 17:00 penicillin G Allergy Mild Hives Verified 09/15/18 17:00 morphine AdvReac Severe Nausea/Vomi Verified 09/15/18 17:00 ting Review of Systems ROS: all other systems reviewed are negative PMFSH Social History Social History Substance History: No History of Abuse Second Hand Smoke Exposure: Yes Smoking Status: Heavy tobacco smoker Tobacco Type: Cigarettes How Often Do You Have a Drink Containing Alcohol: Never Recent Travel in [facility] within the Last 8 Weeks: No Recent Out of Country Travel within the Last 8 Weeks: No Immunization History Tetanus Immunization: Unsure Exam Narrative Exam Narrative: GENERAL: Well-nourished, well-developed patient with some chest discomfort . SKIN: Focused skin assessment reveals no rash and nodules. Skin is Warm and dry. HEAD: Atraumatic. Normocephalic. EYES: Pupils equal and round. No scleral icterus. No injection or drainage. ENT: No nasal bleeding or discharge. Mucous membranes pink and moist. NECK: Trachea midline. No JVD. CARDIOVASCULAR: Regular rate and rhythm. No murmur appreciated. RESPIRATORY: No accessory muscle use. Clear to auscultation. Breath sounds equal bilaterally. GASTROINTESTINAL: Abdomen soft, non-tender, nondistended. Hepatic and splenic margins not palpable. Right lower quadrant ostomy with liquid brown stool in the bag MUSCULOSKELETAL: No obvious deformities. No clubbing. No cyanosis. No edema. NEUROLOGICAL: Awake and alert. No obvious cranial nerve deficits. Motor grossly within normal limits. Normal speech. PSYCHIATRIC: Anxious mood and affect; insight and judgment normal. Course Initial Documented Vital Signs Temperature 98.2 F 09/15/18 16:57 Pulse Rate 89 09/15/18 16:57 Respiratory Rate 18 09/15/18 16:57 Blood Pressure 130/71 09/15/18 16:57 Pulse Oximetry 100 09/15/18 16:57 Last Documented Vital Signs Temperature 98.2 F 09/15/18 16:57 Pulse Rate 87 09/15/18 17:17 Respiratory Rate 18 09/15/18 16:57 Blood Pressure 130/71 09/15/18 16:57 Pulse Oximetry 100 09/15/18 17:17 Medical Decision Making MDM Narrative Medical decision making narrative: 43-year-old female complaining of 2 hours of chest discomfort. I ordered a cardiac workup to evaluate. This did not seem like epigastric pain or pancreatitis pain. She has risk factors of smoking. Workup here is negative including cardiac enzymes and chest x-ray EKG. She will be a 23-hour observation in the chest pain center to rule out cardiac cause of her symptoms. I reviewed with the hospitalist. Medical Screen Exam Complete: Yes Emergency Medical Condition: Yes Differential Diagnosis Differential Diagnosis: Differential diagnosis includes CA, angina, pericarditis , pleurisy, GERD, anxiety. Medical Records Medical records reviewed: Yes I reviewed the patient's medical records. Patient was seen here 2 weeks ago for pain in abdomen Lab Data Lab results reviewed: Yes I reviewed the patient's lab results. Lab results narrative: Patient has anemia of a leukocytosis. She has minimal renal insufficiency Result diagrams: 09/15/18 16:52 09/15/18 16:52 Lab Results 09/15/18 09/15/18 Range/Units 16:52 16:52 CBC w Diff Slide review pending WBC 13.8 H (4.0-11.0) th/mm3 RBC 3.83 L (4.00-5.30) mil/mm3 Hgb 8.8 L (11.6-15.3) gm/dL Hct 29.0 L (35.0-46.0) % MCV 75.7 L (80.0-100.0) fL MCH 23.0 L (27.0-34.0) pg MCHC 30.5 L (32.0-36.0) % RDW 15.7 (11.6-17.2) % Plt Count 445 (150-450) th/mm3 MPV 7.6 (7.0-11.0) fL Neut % (Auto) 75.8 H (16.0-70.0) % Lymph % (Auto) 18.0 (9.0-44.0) % [place] % (Auto) 5.0 (0.0-8.0) % Eos % (Auto) 0.8 (0.0-4.0) % Baso % (Auto) 0.4 (0.0-2.0) % Neut # (Auto) 10.4 H (1.8-7.7) th/mm3 Lymph # (Auto) 2.5 (1.0-4.8) th/mm3 [place] # (Auto) 0.7 (0.0-0.9) th/mm3 Eos # (Auto) 0.1 (0.0-0.4) th/mm3 Baso # (Auto) 0.1 (0.0-0.2) th/mm3 WBC Differential . Diff Scan Auto diff confirmed Differential Comment . Platelet Estimate Normal (Normal) Platelet Morphology Normal (Normal) Sodium 135 L (136-145) meq/L Potassium 3.7 (3.5-5.1) meq/L Chloride 103 (98-107) meq/L Carbon Dioxide 22.9 (21.0-32.0) meq/L Anion Gap 9 (5-15) meq/L BUN 19 H (7-18) mg/dL Creatinine 1.20 H (0.50-1.00) mg/dL Estimated GFR 49 L (>89) mL/min Random Glucose 82 (74-106) mg/dL Calcium 8.4 L (8.5-10.1) mg/dL Total Bilirubin 0.2 (0.2-1.0) mg/dL AST 18 (15-37) U/L ALT 13 (10-53) U/L Alkaline Phosphatase 93 (45-117) U/L Total Creatine Kinase 62 (26-192) U/L Troponin I Less than 0.02 L (0.02-0.05) ng/mL Total Protein 7.4 (6.4-8.2) g/dL Albumin 3.5 (3.4-5.0) g/dL Lipase 306 (73-393) U/L Imaging Data Attestation: I personally reviewed and interpreted this imaging study as follows : My impression: Chest x-ray is normal Radiologist's impression: Chest X-Ray 09/15/18 17:10 CONCLUSION: Negative examination. ECG Data EKG Prior to Arrival: No Attestation: I personally reviewed and interpreted this ECG as follows: Prior ECG tracings: not available for review Interpretation: EKG shows sinus rhythm with no ST elevation or ectopy. ND interval and axis are normal. Rate is 85. 154 ms on the ND interval. Discharge Plan Discharge Disposition Patient Disposition: ED Admit(ED Internal Use Only) Discharge Details Diagnosis: Chest pain in adult Physicians Team ED Provider: Sergio Montero Primary Care Provider: Do Deisy Chavarria Rxs /Orders / Referrals /Forms Prescriptions: No Action citalopram 10 mg Tablet 10 mg PO DAILY RF: 0 hydrocodone-acetaminophen 10-325 mg Tablet 1 tab PO Q6H PRN (Reason: Pain) RF: 0 esomeprazole magnesium [Nexium] 20 mg Capsule,Delayed Release(Dr/Ec) 20 mg PO BIDAC RF: 0 Discharge Instructions Patient Printed Instructions: Chest Pain (ED) Status ED Status: With Doctor
[2018-09-15 17:23] LABS: Baso # (Auto) 0.1 th/mm3 (0.0-0.2); Baso % (Auto) 0.4 % (0.0-2.0); Eos # (Auto) 0.1 th/mm3 (0.0-0.4); Eos % (Auto) 0.8 % (0.0-4.0); Hemoglobin 8.8 gm/dL (11.6-15.3); Lymph # (Auto) 2.5 th/mm3 (1.0-4.8); Mean Corpuscular Volume 75.7 fL (80.0-100.0); Mean Platelet Volume 7.6 fL (7.0-11.0); Mono # (Auto) 0.7 th/mm3 (0.0-0.9); Neut # (Auto) 10.4 th/mm3 (1.8-7.7); Neut % (Auto) 75.8 % (16.0-70.0); Platelet Count 445 th/mm3 (150-450); Red Blood Count 3.83 mil/mm3 (4.00-5.30); Red Cell Distribution Width 15.7 % (11.6-17.2); White Blood Count 13.8 th/mm3 (4.0-11.0)
[2018-09-15 17:33] LABS: Mean Corpuscular HGB Conc 30.5 % (32.0-36.0)
[2018-09-15 17:34] LABS: Chloride 103 meq/L (98-107); Potassium 3.7 meq/L (3.5-5.1); Sodium 135 meq/L (136-145)
[2018-09-15 17:38] LABS: Albumin 3.5 g/dL (3.4-5.0); Anion Gap 9 meq/L (5-15); Blood Urea Nitrogen 19 mg/dL (7-18); Calcium 8.4 mg/dL (8.5-10.1); Carbon Dioxide 22.9 meq/L (21.0-32.0); Glucose,Random 82 mg/dL (74-106); Lipase 306 U/L (73-393)
[2018-09-15 17:41] LABS: Alanine Aminotransferase 13 U/L (10-53); Aspartate Aminotransferase 18 U/L (15-37); Glomerular Filtration Rate 49 mL/min (>89)
--- NOTE | 2018-09-15 17:41 | XR ---
EXAM DATE: 09/15/2018 5:38 PM EST AGE/SEX: 43 years / Female INDICATIONS: Middle to right sided chest pain and shortness of breath. CLINICAL DATA: This is the patient's initial encounter. Patient reports that signs and symptoms have been present for 1 day and indicates a pain score of 10/10. MEDICAL/SURGICAL HISTORY: None. None. COMPARISON: No prior exams available for comparison. FINDINGS: A single AP view of the chest demonstrates the lungs to be symmetrically aerated without evidence of mass, infiltrate or effusion. The cardiomediastinal contours are unremarkable. Osseous structures a re intact. CONCLUSION: Negative examination. Electronically signed by: Mario Turpin MD Board Certified Radiologist 09/15/2018 5:40 PM EST
[2018-09-15 17:43] LABS: Total Protein 7.4 g/dL (6.4-8.2)
[2018-09-15 17:44] LABS: Alkaline Phosphatase 93 U/L (45-117)
[2018-09-15 17:51] LABS: Creatine Kinase 62 U/L (26-192)
[2018-09-15 18:07] LABS: Platelet Estimate Normal (Normal); Platelet Morphology Normal (Normal)
[2018-09-15] MEDS ORDERED: Bisacodyl 10 MG Supp RECTAL PRN (19:00)
[2018-09-15] MEDS: Senna/Docusate Sodium 8.6/50 MG Tablet PO SCH (21:43)
[2018-09-15] MEDS: Sod Chloride 0.9% Inj 1,000 ML IV.CONT SCH (22:03)
[2018-09-15] MEDS ORDERED: Ketorolac Inj 30 MG/ML (IVP) Vial IV.PUSH ONE (22:19)
[2018-09-16 08:46] LABS: Potassium 4.1 meq/L (3.5-5.1)
[2018-09-16 08:47] LABS: Baso # (Auto) 0.3 th/mm3 (0.0-0.2); Baso % (Auto) 3.4 % (0.0-2.0); Eos # (Auto) 0.1 th/mm3 (0.0-0.4); Eos % (Auto) 1.2 % (0.0-4.0); Hematocrit 29.2 % (35.0-46.0); Hemoglobin 8.8 gm/dL (11.6-15.3); Lymph # (Auto) 2.3 th/mm3 (1.0-4.8); Lymph % (Auto) 30.6 % (9.0-44.0); Mean Corpuscular Hemoglobin 22.7 pg (27.0-34.0); Mean Corpuscular Volume 75.5 fL (80.0-100.0); Mean Platelet Volume 7.9 fL (7.0-11.0); Mono # (Auto) 0.4 th/mm3 (0.0-0.9); Mono % (Auto) 5.1 % (0.0-8.0); Neut # (Auto) 4.3 th/mm3 (1.8-7.7); Neut % (Auto) 59.7 % (16.0-70.0); Platelet Count 407 th/mm3 (150-450); Red Blood Count 3.87 mil/mm3 (4.00-5.30); Red Cell Distribution Width 16.3 % (11.6-17.2); White Blood Count 7.4 th/mm3 (4.0-11.0)
[2018-09-16 08:48] LABS: Calcium 8.1 mg/dL (8.5-10.1)
[2018-09-16 08:49] LABS: Carbon Dioxide 24.6 meq/L (21.0-32.0)
[2018-09-16] MEDS ORDERED: Diatrizoate Meglum/Diatrizoate Sod Liq 9 ML UDC PO ONE (09:00)
--- NOTE | 2018-09-16 09:04 | P.HP ---
History of Present Illness Primary Care Physician: Do Deisy Chavarria Chief Complaint: Chest/abdominal pain History of Present Illness: 43-year-old female with rather extensive history of Crohn's disease with multiple surgeries, complications who presented to the hospital because of onset of epigastric/lower sternal chest pain. Patient states that she is in a normal state of health until yesterday when she started developing a constant pain in her lower sternum/epigastric region without any radiation to the neck, back, shoulder, arm. She did have some nausea without any vomiting. Denied any shortness of breath, dyspnea, diaphoresis, lightheadedness, dizziness. Patient states that the pain started approximately 230 yesterday afternoon and by 430 she cannot tolerate anymore because a 10/10 on a pain scale so she came to the emergency department for evaluation. Patient had workup done in the emergency department and cardiac enzymes were negative, did show leukocytosis as well as acute azotemia. It was recommended by the ER physician the patient be observed in the hospital to rule out her chest pain. Patient does have rather extensive history of Crohn's disease in which she is followed by Dr. Harris on a regular basis. She was supposed to had a endoscopy done in July , however she missed the appointment. She states that she does have history of significant ulcers and she is on Nexium on a daily basis. Patient does have history of pancreatitis. When she started having the above symptoms she thought that she has developed pancreatitis again. Patient states that she can usually control her pain with her pain medications at home. However due to the severity she could not control the pain. Upon evaluating patient she is requesting pain medications. She states that oral pain medication usually does not help that well. She is requesting IV pain medicine. - Diagnosis (1) Abdominal pain (2) Chest pain in adult Review of Systems All other systems reviewed negative except as stated in HPI Cardiovascular: Reports chest pain Gastrointestinal: Reports abdominal pain, Reports nausea PMFSH - History History Provided By: Patient - Medical History Medical History: Medical History (Last Reviewed 09/16/18 @ 08:56 by SAMIA Mattson) History of chronic pain History of small bowel obstruction Hx of Crohn's disease Hx of iron deficiency anemia Pancreatitis - Surgical History Surgical History: Surgical History (Last Reviewed 09/16/18 @ 08:56 by SAMIA Mattson) H/O right knee surgery Hx of colectomy Hx of hysterectomy Hx of lumpectomy Hx of resection of small bowel - Family History Family History: Family History (Last Reviewed 09/16/18 @ 08:56 by SAMIA Mattson) Mother History of cancer Father History of Crohn's disease - Tobacco History Second Hand Smoke Exposure: Yes Tobacco Use In Past 30 Days: Yes Smoking Status: Current every day smoker Tobacco Type: Cigarettes - Alcohol History How Often Do You Have a Drink Containing Alcohol: Never - Substance Use History Substance History: No History of Abuse - Travel History Recent Travel in the [place] Within the Last 8 Weeks: No Recent Travel Out of the Country Within the Last 8 Weeks: No - Immunization History Tetanus Immunization: Unsure Medications and Allergies Active Medications: Active Medications Al Hydroxide/Mg Hydroxide (Milk Of Magnesia Liq) 30 ml PO Q12H PRN PRN Reason: Mild Constipation Bisacodyl (Dulcolax Supp) 10 mg RECTAL DAILY PRN PRN Reason: SEVERE CONSITIPATION Sodium Chloride (Ns Inj) 1,000 mls @ 100 mls/hr IV.CONT .Q10H [facility] Last Admin: 09/15/18 22:03 Dose: 100 mls/hr Lactulose (Lactulose Liq) 30 ml PO DAILY PRN PRN Reason: SEVERE CONSITIPATION Ondansetron HCl (Zofran Inj) 4 mg IV.PUSH Q6H PRN PRN Reason: NAUSEA OR VOMITING Last Admin: 09/15/18 19:56 Dose: 4 mg Senna/Docusate Sodium (Marlene-Colace) 1 tab PO BID [facility] Last Admin: 09/15/18 21:43 Dose: Not Given Sennosides (Senokot) 17.2 mg PO Q12H PRN PRN Reason: Moderate Constipation Sodium Chloride (Ns Flush) 2 ml IV.FLUSH BID [facility] Last Admin: 09/15/18 22:03 Dose: 2 ml Sodium Chloride (Ns Flush) 2 ml IV.FLUSH PRN PRN PRN Reason: FLUSH AFTER USING IV ACCESS Allergies Allergy/AdvReac Type Severity Reaction Status Date / Time metronidazole Allergy Severe Vomiting Verified 09/15/18 17:00 ciprofloxacin Allergy Intermediate Nausea/Vomi Verified 09/15/18 17:00 ting nitrofurantoin Allergy Intermediate Nausea/Vomi Verified 09/15/18 17:00 ting Sulfa (Sulfonamide Allergy Intermediate Nausea/Vomi Verified 09/15/18 17:00 Antibiotics) ting adhesive Allergy Mild Rash Verified 09/15/18 17:00 penicillin G Allergy Mild Hives Verified 09/15/18 17:00 morphine AdvReac Severe Nausea/Vomi Verified 09/15/18 17:00 ting Home Medications Medication Instructions Recorded Confirmed Type citalopram 10 mg PO DAILY 05/14/18 09/15/18 History esomeprazole magnesium [Nexium] 20 mg PO BIDAC 05/14/18 09/15/18 History hydrocodone-acetaminophen 1 tab PO Q6H PRN 05/14/18 09/15/18 History Exam Vital signs: Vital Signs 09/15/18 16:57 09/15/18 17:17 09/15/18 19:18 Temperature 98.2 F Pulse Rate 89 87 77 Respiratory Rate 18 16 Blood Pressure 130/71 102/57 L Pulse Oximetry 100 100 99 09/15/18 21:28 09/15/18 21:39 09/16/18 00:00 Temperature 98.5 F 97.2 F L Pulse Rate 73 89 81 Respiratory Rate 18 18 Blood Pressure 106/64 108/60 Pulse Oximetry 97 97 09/16/18 04:00 Temperature 97.2 F L Pulse Rate 65 Respiratory Rate 18 Blood Pressure 110/68 Pulse Oximetry 98 Intake & Output 09/15/18 09/16/18 09/16/18 18:59 06:59 18:59 Weight 67.2 kg 65.6 kg Other: Weight On Admission 65.6 kg Narrative: GENERAL: Well-developed, well-nourished, in no acute distress. alert and orientated HEENT: Head is normocephalic without any lesions or masses noted. Facial features are symmetric. Eyes: Pupils equal round reactive to light. Extraocular muscles are intact. Conjunctivae were clear. Oropharyngeal: Pharynx without any erythema edema. Tongue is midline without deviation. Buccal mucosa is moist without any masses or lesions NECK: Supple without any masses. Trachea midline no deviation. No JVD, no bruits are appreciated CARDIAC: Regular rhythm, regular rate. S1/S2 are heard. No murmurs gallops or rubs. LUNGS: Clear to auscultation bilaterally. No wheeze, rhonchi or rales. No use of accessory muscles on inspiration or expiration. ABDOMEN: Soft, diffuse abdominal tenderness, no point tenderness. Nondistended. Bowel sounds heard in all 4 quadrants. No organomegaly or masses. Negative rebound, negative guarding EXTREMITIES: No edema, pulses are equal bilaterally. No cyanosis or clubbing NEUROLOGY: Mood and affect appear appropriate. Cranial nerves II through XII grossly intact. Muscle strength 5/5 in upper and lower extremities bilaterally. Deep tendon reflexes are 2+ in upper and lower extremities bilaterally. Results - Labs CBC & Chem 7: 09/16/18 08:35 09/16/18 08:35 Labs: Laboratory Results - last 24 hr 09/15/18 09/15/18 09/15/18 16:52 16:52 20:10 CBC w Diff Slide review pending WBC 13.8 H RBC 3.83 L Hgb 8.8 L Hct 29.0 L MCV 75.7 L MCH 23.0 L MCHC 30.5 L RDW 15.7 Plt Count 445 MPV 7.6 Neut % (Auto) 75.8 H Lymph % (Auto) 18.0 [place] % (Auto) 5.0 Eos % (Auto) 0.8 Baso % (Auto) 0.4 Neut # (Auto) 10.4 H Lymph # (Auto) 2.5 [place] # (Auto) 0.7 Eos # (Auto) 0.1 Baso # (Auto) 0.1 WBC Differential . Diff Scan Auto diff confirmed Differential Comment . Platelet Estimate Normal Platelet Morphology Normal Sodium 135 L Potassium 3.7 Chloride 103 Carbon Dioxide 22.9 Anion Gap 9 BUN 19 H Creatinine 1.20 H Estimated GFR 49 L Random Glucose 82 Calcium 8.4 L Total Bilirubin 0.2 AST 18 ALT 13 Alkaline Phosphatase 93 Total Creatine Kinase 62 Troponin I Less than 0.02 L Less than 0.02 L Total Protein 7.4 Albumin 3.5 Lipase 306 09/15/18 09/16/18 22:49 08:35 CBC w Diff WBC RBC Hgb Hct MCV MCH MCHC RDW Plt Count MPV Neut % (Auto) Lymph % (Auto) [place] % (Auto) Eos % (Auto) Baso % (Auto) Neut # (Auto) Lymph # (Auto) [place] # (Auto) Eos # (Auto) Baso # (Auto) WBC Differential Diff Scan Differential Comment Platelet Estimate Platelet Morphology Sodium 138 Potassium 4.1 Chloride 108 H Carbon Dioxide 24.6 Anion Gap 5 BUN 16 Creatinine Estimated GFR Random Glucose 79 Calcium 8.1 L Total Bilirubin AST ALT Alkaline Phosphatase Total Creatine Kinase Troponin I Less than 0.02 L Total Protein Albumin Lipase - Imaging Impressions Chest X-Ray 09/15/18 17:10 CONCLUSION: Negative examination. Caprini VTE Risk Assessment Caprini VTE Risk Assessment: Moderate/High Risk (score >= 2) Caprini Risk Assessment Model: Point Value = 1 Point Value = 2 Point Value = 3 Point Value = 5 Age 41-60 Minor surgery BMI > 25 kg/m2 Swollen legs Varicose veins or History of unexplained or recurrent spontaneous Oral contraceptives or hormone replacement Sepsis (< 1 month) Serious lung disease, including pneumonia (< 1 month) Abnormal pulmonary function Acute myocardial infarction Congestive heart failure (< 1 month) History of inflammatory bowel disease Medical patient at bed rest Age 61-74 Arthroscopic surgery Major open surgery (> 45 min) Laparoscopic surgery (> 45 min) Malignancy Confined to bed (> 72 hours) Immobilizing plaster cast Central venous access Age >= 75 History of VTE Family history of VTE Factor V Leiden Prothrombin [id number] Lupus anticoagulant Anticardiolipin antibodies Elevated serum homocysteine Heparin-induced thrombocytopenia Other congenital or acquired thrombophilia Stroke (< 1 month) Elective arthroplasty Hip, pelvis, or leg fracture Acute spinal cord injury (< 1 month) Prophylaxis Regimen: Total Risk Factor Score Risk Level Prophylaxis Regimen 0-1 Low Early ambulation 2 Moderate Order ONE of the following: *Sequential Compression Device (SCD) *Heparin 5000 units SQ BID 3-4 Higher Order ONE of the following medications: *Heparin 5000 units SQ TID *Enoxaparin/Lovenox 40 mg SQ daily (WT < 150 kg, CrCl > 30 mL/min) *Enoxaparin/Lovenox 30 mg SQ daily (WT < 150 kg, CrCl > 10-29 mL/min) *Enoxaparin/Lovenox 30 mg SQ BID (WT < 150 kg, CrCl > 30 mL/min) AND/OR *Sequential Compression Device (SCD) 5 or more Highest Order ONE of the following medications: *Heparin 5000 units SQ TID (Preferred with Epidurals) *Enoxaparin/Lovenox 40 mg SQ daily (WT < 150 kg, CrCl > 30 mL/min) *Enoxaparin/Lovenox 30 mg SQ daily (WT < 150 kg, CrCl > 10-29 mL/min) *Enoxaparin/Lovenox 30 mg SQ BID (WT < 150 kg, CrCl > 30 mL/min) AND *Sequential Compression Device (SCD) Assessment and Plan - Assessment (1) Abdominal pain Code(s): R10.9 - Unspecified abdominal pain Status: Acute (2) Chest pain in adult Code(s): R07.9 - Chest pain, unspecified Status: Acute - Plan Abdominal pain/chest pain -Patient with only risk factor of tobacco use for any noncardiac etiology -Patient has been ruled out for acute coronary event with serial cardiac enzymes that are negative. -Serial EKGs reviewed by myself that shows sinus rhythm without any acute changes or abnormalities -CT of the abdomen pelvis shows thickening of the gastric wall indicating acute gastritis. -Discussed with Dr. Harris patient's care. He indicates that she had endoscopy done in March of this year which did show a 7 mm peptic ulcer. Recommending continuation of treatment plan that we are undergoing at this time with twice a day dosing of proton pump inhibitor. He indicated that he cannot perform endoscopy and [place] this week that Dr. Welsh is covering. He indicated that he does have an opening tomorrow morning in his outpatient surgical center that he could do endoscopy at that time. -Discussed with the patient the conversation that I had with Dr. Ware on. She does understand and agrees with doing outpatient procedure. Leukocytosis, resolved -Unknown significance at this time, may be some underlying infection, concentration -Follow-up CBC shows resolution of leukocytosis Azotemia, resolved -Continue IV fluids -Continue monitor renal function DVT prevention -Sequential compression devices Discharge Planning: Discharge home in stable condition Activity: Ad cele. Diet: Regular diet Medication per medication reconciliation Follow-up with primary medical doctor in 1 week
[2018-09-16 09:27] LABS: Mean Corpuscular HGB Conc 30.1 % (32.0-36.0)
[2018-09-16] MEDS: Sod Chloride 0.9% Inj 1,000 ML IV.CONT SCH ×2 (09:33→17:19)
[2018-09-16] MEDS: Senna/Docusate Sodium 8.6/50 MG Tablet PO SCH (09:34)
[2018-09-16] MEDS: HYDROmorphone PF Inj 0.5 MG/0.5 ML Syringe IV.PUSH PRN ×2 (09:42→13:26)
[2018-09-16] MEDS ORDERED: Pantoprazole Inj 40 MG Vial IV.PUSH SCH (10:00)
[2018-09-16 12:59] VITALS: TEMP 98
--- NOTE | 2018-09-16 13:00 | CT ---
EXAM DATE: 09/16/2018 12:52 PM EST AGE/SEX: 43 years / Female INDICATIONS: Epigastric pain x 3 weeks, worse over past week. Nausea. CLINICAL DATA: This is the patient's initial encounter. Patient reports that signs and symptoms have been present for 3 weeks and indicates a pain score of 7/10. MEDICAL/SURGICAL HISTORY: Crohn's disease. Pancreatitis. Ulcers. Small bowel obstruction. St loni stenosis. Hysterectomy. Colon resection. Ileostomy. RADIATION DOSE: 7.48 CTDI (mGy) COMPARISON: [facility], CT ABDOMEN & PELVIS W CONTRAST, 09/02/2018. . TECHNIQUE: Multiple contiguous axial images were obtained through the abdomen. Images were obtained using multiple row detector helical technique. Using automated exposure control and adjustment of the mA and/or kV according to patient size, radiation dose was kept as low as reasonably achievable to o btain optimal diagnostic quality images. DICOM format image data is available electronically for rev iew and comparison. FINDINGS: Lower Lungs: The visualized lower lungs are clear. Liver: Hepatomegaly is noted. The liver has a homogeneous density without space-occupying lesion. The re is no dilation of the biliary tree. Spleen: Splenomegaly is noted. Pancreas: Unremarkable without mass or calcification. Kidneys: Normal in size and shape. No evidence of mass or hydronephrosis. Adrenal Glands: Unremarkable. Aorta: The aorta and proximal iliac vessels are grossly unremarkable without aneurysmal dilation. Bowel/Mesentery: There is thickening of the wall of the gastric antrum with perigastric inflammatory changes suggesting acute gastritis. Clinical correlation is recommended. The patient is status post colectomy. Right lower quadrant ileostomy is noted. Abdominal Wall: Intact. Retroperitoneum: No evidence of adenopathy in the retrocrural, para-aortic, or deep pelvic regions. Bladder: Contours are smooth. Reproductive Organs: No abnormal masses or calcifications seen. Inguinal: The inguinal region is unremarkable without evidence of adenopathy. Bony Structures: Unremarkable. CONCLUSION: 1. Thickening of the wall of the gastric antrum with perigastric inflammatory changes suggesting acu te gastritis. Clinical correlation is recommended. 2. Hepatosplenomegaly. Electronically signed by: Mario Turpin MD Board Certified Radiologist 09/16/2018 12:59 PM EST
--- NOTE | 2018-09-16 15:27 | ECG ---
Date Performed: 09/15/2018 Time Performed: 22:44:54 PTAGE: 43 years EKG: Sinus rhythm POSSIBLE LEFT ATRIAL ENLARGEMENT POSSIBLE RIGHT VENTRICULAR CONDUCTION DELAY Since the previous trac ing, no significant change noted BORDERLINE ECG PREVIOUS TRACING : 09/15/2018 20.36 DOCTOR: Lourdes Lujan Interpretating Date/Time 09/16/2018 15:26:00
--- NOTE | 2018-09-16 15:28 | ECG ---
Date Performed: 09/15/2018 Time Performed: 20:36:16 PTAGE: 43 years EKG: Sinus rhythm POSSIBLE LEFT ATRIAL ENLARGEMENT POSSIBLE RIGHT VENTRICULAR CONDUCTION DELAY Since the previous trac ing, no significant change noted BORDERLINE ECG PREVIOUS TRACING : 09/15/2018 16.50 DOCTOR: Lourdes Lujan Interpretating Date/Time 09/16/2018 15:26:10
--- NOTE | 2018-09-16 15:28 | ECG ---
Date Performed: 09/15/2018 Time Performed: 16:50:20 PTAGE: 43 years EKG: Sinus rhythm INCOMPLETE RIGHT BUNDLE BRANCH BLOCK Since the previous tracing, no significant change noted BORDERL INE ECG NO PREVIOUS TRACING DOCTOR: Lourdes Lujan Interpretating Date/Time 09/16/2018 15:26:23
[2018-09-16 16:37] VITALS: BP 101/50; PULSE 58; O2SAT 98
[2018-09-16 17:20] VITALS: RESP 20
[2018-09-17] MEDS ORDERED: Citalopram 20 MG Tablet PO SCH (09:00)
== END 2018-09-16 18:16 | disposition home or self-care (01) ==
LOC: PHED 16:40 → PHEDA 16:40 → PH3 21:04
PROVIDERS: ADMIT Hospitalist; ATTEND Hospitalist
DX: K50.90 Crohn's disease, unspecified, without complications; R79.89 Other specified abnormal findings of blood chemistry; N28.9 Disorder of kidney and ureter, unspecified; D72.829 Elevated white blood cell count, unspecified; F17.210 Nicotine dependence, cigarettes, uncomplicated; R10.9 Unspecified abdominal pain; R07.9 Chest pain, unspecified; Z87.19 Personal history of other diseases of the digestive system; D50.9 Iron deficiency anemia, unspecified; R11.0 Nausea; K29.00 Acute gastritis without bleeding